=== PATIENT | male | born 1960 | race African-American/Black ===

== ENCOUNTER 2016-07-21 16:05 | Inpatient (IN) | payer OTHER ==
[~2016-07-21] VITALS: Ht 182.9 cm; Wt 99.8 kg
[~2016-07-21 16:05] MED LIST: AMLO10TA80 PO; ASPI-1035 PO; INSULIN GLARGINE SUBCUT; LISI40TA4 PO; METF10002 PO; METO50TA5 PO; TRAM50TA3 PO
[2016-07-21] MEDS ORDERED: ASPIRIN 81MG TABLET PO STA (17:34)
[2016-07-21 17:55] LABS: BASOPHILS % 0.9 % (0.0-2.0); HEMATOCRIT. 44.9 % (42.0-52.0); LYMPHOCYTES % 38.1 % (20.0-50.0); MEAN CORPUSCULAR HEMOGLOBIN 29.9 pg (28.0-32.0); MEAN CORPUSCULAR HGB CONC 33.5 g/dL (31.0-37.0); MEAN CORPUSCULAR VOLUME 89.1 fL (80.0-94.0); MEAN PLATELET VOLUME 10.3 fl (7.4-10.4); PLATELET 144 x1000/uL (130-400); RED BLOOD CELL COUNT 5.03 mill/uL (4.7-6.1); RED CELL DISTRIBUTION WIDTH 14.6 % (11.6-14.6); WHITE BLOOD COUNT 6.9 x1000/uL (4.5-11.0)
[2016-07-21 18:01] LABS: ALBUMIN 4.1 g/dL (3.4-5.0); ANION GAP 12; CALCIUM 9.2 mg/dL (8.5-10.1); CARBON DIOXIDE 26 mEq/L (21-32); CHLORIDE 108 mEq/L (98-107); INDEX HEMOLYSI 1 (1-3); INDEX ICTERIC 1 (1-4); INDEX LIPEMIC 1 (1-3); PARTIAL THROMBOPLASTIN TIME 25.9 sec (24.0-34.0); PROTHROMBIN TIME 10.7 sec; UREA NITROGEN BLOOD 12 mg/dL (7-21)
[2016-07-21 18:04] LABS: ALANINE AMINOTRANSFERASE 57 IU/L (13-61)
[2016-07-21] MEDS: NITROGLYCERIN 0.4MG TABLET SL SL PRN ×3 (18:05→18:15)
[2016-07-21 18:08] LABS: NT PRO B-TYPE NATRIURETIC PEP 19 pg/mL (5-125); TROPONIN I < 0.02 ng/mL (0.00-0.04); eGFR > 60 mL/min (>60)
[2016-07-21 20:00] VITALS: BP 148/99
[2016-07-21] MEDS ORDERED: MORPHINE SULFATE 4 MG/ML CPJ (NOT FOR IM USE) IV ONE (20:00)
[2016-07-21] MEDS ORDERED: ONDANSETRON HCL 4MG/2ML VIAL IV ONE (20:00)
[2016-07-21] MEDS ORDERED: NITROGLYCERIN OINT 1GM/INCH UDPKT TD ONE (20:00)
[2016-07-21] MEDS ORDERED: ATOR20TA65 PO (20:21)
[2016-07-21] MEDS ORDERED: FLUO-123 PO (20:21)
[2016-07-21 21:45] VITALS: BP 148/99
[2016-07-21] MEDS: NITROGLYCERIN OINT 1GM/INCH UDPKT TD SCH (21:49)
[2016-07-21] MEDS: ATORVASTATIN CALCIUM 20MG TABLET PO SCH (21:58)
[2016-07-21] MEDS: METOPROLOL TARTRATE 50MG TABLET PO SCH (21:58)
[2016-07-22] VITALS: BP_SYST 142; BP_SYST 154; BP_DIAS 92; BP_DIAS 96
[2016-07-22] MEDS ORDERED: DEXTROSE 50% WATER 50ML SYRINGE IV PRN
[2016-07-22] MEDS: MORPHINE SULFATE 2 MG/ML CPJ (NOT FOR IM USE) IV PRN ×3 (03:31→18:43)
[2016-07-22 04:00] VITALS: BP 96/55
[2016-07-22] MEDS: NITROGLYCERIN OINT 1GM/INCH UDPKT TD SCH ×3 (05:01→21:13)
[2016-07-22 06:30] LABS: EOSINOPHILS % 2.5 % (0.0-5.0); HEMATOCRIT. 38.8 % (42.0-52.0); LYMPHOCYTES % 48.6 % (20.0-50.0); MEAN CORPUSCULAR HEMOGLOBIN 29.5 pg (28.0-32.0); MEAN CORPUSCULAR HGB CONC 33.5 g/dL (31.0-37.0); MEAN CORPUSCULAR VOLUME 88.1 fL (80.0-94.0); MEAN PLATELET VOLUME 10.9 fl (7.4-10.4); MONOCYTES % 11.6 % (2.0-8.0); NEUTROPHILS % 36.3 % (40.0-76.0); PLATELET 139 x1000/uL (130-400); RED CELL DISTRIBUTION WIDTH 14.2 % (11.6-14.6); WHITE BLOOD COUNT 6.8 x1000/uL (4.5-11.0)
[2016-07-22 07:03] LABS: ANION GAP 13; CALCIUM 8.8 mg/dL (8.5-10.1); CARBON DIOXIDE 24 mEq/L (21-32); CHLORIDE 108 mEq/L (98-107); INDEX HEMOLYSI 1 (1-3); INDEX ICTERIC 1 (1-4); INDEX LIPEMIC 1 (1-3)
[2016-07-22 07:09] LABS: HDL CHOLESTEROL 33 mg/dL (40-59); LDL CHOLESTEROL 78 mg/dL (5-100); TRIGLYCERIDE 164 mg/dL (0-150); UREA NITROGEN BLOOD 14 mg/dL (7-21); eGFR > 60 mL/min (>60)
[2016-07-22] MEDS: BLOOD SUGAR DIAGNOSTIC STRIP TEST SCH ×4 (07:51→21:09)
[2016-07-22] MEDS: INSULIN LISPRO 100 UNITS/ML SUBCUT SCH ×4 (07:51→21:00)
[2016-07-22 08:00] VITALS: BP 103/70
[2016-07-22] MEDS: ASPIRIN 325MG EC TABLET PO SCH (08:43)
[2016-07-22] MEDS: ENOXAPARIN 30MG/0.3ML SYR SUBCUT SCH ×2 (08:44→21:09)
[2016-07-22] MEDS: METOPROLOL TARTRATE 50MG TABLET PO SCH ×2 (08:47→21:08)
[2016-07-22] MEDS ORDERED: METOPROLOL TARTRATE 50MG TABLET PO SCH (09:00)
[2016-07-22] MEDS ORDERED: FLUOXETINE HCL 20MG CAPSULE PO SCH (09:00)
[2016-07-22] MEDS: FLUOXETINE HCL 10 MG CAPSULE PO SCH (11:29)
[2016-07-22 12:00] VITALS: BP 130/86
[2016-07-22 15:22] LABS: *AMPHETAMINES SCREEN URINE NEGATIVE (NEGATIVE); *BARBITURATES SCREEN URINE NEGATIVE (NEGATIVE); *BENZODIAZEPINES SCREEN URINE NEGATIVE (NEGATIVE); *COCAINE SCREEN URINE NEGATIVE (NEGATIVE); CANNABINOID URINE SCREEN NEGATIVE (NEGATIVE); ECSTASY MDMA SCREEN URINE NEGATIVE (NEGATIVE); METHADONE URINE SCREEN NEGATIVE (NEGATIVE); OPIATES URINE SCREEN PRESUMTIVE POSITIVE (NEGATIVE); PHENCYCLIDINE URINE SCREEN NEGATIVE (NEGATIVE)
[2016-07-22 16:00] VITALS: BP 131/88
[2016-07-22 20:00] VITALS: BP 142/85
[2016-07-22] MEDS ORDERED: ATORVASTATIN CALCIUM 20MG TABLET PO SCH (21:00)
[2016-07-22] MEDS: ATORVASTATIN CALCIUM 20MG TABLET PO SCH (21:08)
[2016-07-23] VITALS: BP 128/87
[2016-07-23 04:00] VITALS: BP 113/70
[2016-07-23] MEDS: NITROGLYCERIN OINT 1GM/INCH UDPKT TD SCH ×2 (06:15→15:03)
[2016-07-23] MEDS: INSULIN LISPRO 100 UNITS/ML SUBCUT SCH ×2 (07:28→13:10)
[2016-07-23] MEDS: BLOOD SUGAR DIAGNOSTIC STRIP TEST SCH ×2 (07:28→12:40)
[2016-07-23 08:00] VITALS: BP 114/89
[2016-07-23] MEDS ORDERED: INDOMETHACIN 50MG CAPSULE PO SCH (09:30)
[2016-07-23] MEDS: METOPROLOL TARTRATE 50MG TABLET PO SCH (09:34)
[2016-07-23] MEDS: ENOXAPARIN 30MG/0.3ML SYR SUBCUT SCH (09:34)
[2016-07-23] MEDS: ASPIRIN 325MG EC TABLET PO SCH (09:34)
[2016-07-23] MEDS: FLUOXETINE HCL 10 MG CAPSULE PO SCH (09:37)
[2016-07-23] MEDS: MORPHINE SULFATE 2 MG/ML CPJ (NOT FOR IM USE) IV PRN (10:50)
[2016-07-23 12:00] VITALS: BP 108/71
[2016-07-23] MEDS ORDERED: ALBU18HF2 IH (12:13)
[2016-07-23] MEDS ORDERED: ALBUTEROL (0.5%) 2.5MG/0.5ML NEB HHN SCH (12:15)
[2016-07-23 13:07] VITALS: BP 108/71
== END 2016-07-23 15:16 | disposition home or self-care (01) | DRG 203 ==
LOC: ER 16:06 → 7WST 18:49
PROVIDERS: ADMIT Internal Medicine; ATTEND Internal Medicine
DX: M94.0 Chondrocostal junction syndrome [Tietze] (principal); I24.9 Acute ischemic heart disease, unspecified; I11.0 Hypertensive heart disease with heart failure; I50.9 Heart failure, unspecified; E11.65 Type 2 diabetes mellitus with hyperglycemia; J44.9 Chronic obstructive pulmonary disease, unspecified; F32.9 Major depressive disorder, single episode, unspecified; E66.9 Obesity, unspecified; E78.5 Hyperlipidemia, unspecified; Z82.49 Family history of ischemic heart disease and other diseases of the circulatory system; Z87.891 Personal history of nicotine dependence; Z68.29 Body mass index [BMI] 29.0-29.9, adult
CPT/HCPCS: 36415; 71010; 80048; 80053; 80061; 80305; 82962; 83036; 83880; 84484; 85018; 85025; 85610; 85730; 93005; 96374; 96375; 99285; J1650; J2270; J2405; J7611

== ENCOUNTER 2018-04-15 21:40 | Emergency (ER) | payer OTHER ==
[~2018-04-15] VITALS: Ht 182.9 cm; Wt 102.0 kg
[~2018-04-15 21:40] MED LIST changes: +ALBU18HF2 IH; -ASPI-1035 PO; +ASPI-1159 PO; +ATOR20TA65 PO; +FLUO-123 PO; +INSU300I SQ; -INSULIN GLARGINE SUBCUT; +METF-416 PO; -METF10002 PO; +METO-539 PO; -METO50TA5 PO; +SITA100T11 PO; +[UNRECOGNIZED DRUG - OTHER] PO
[2018-04-15] MEDS ORDERED: KETOROLAC 30MG/ML VIAL IV ONE (23:15)
[2018-04-15 23:37] LABS: BASOPHILS % 0.9 % (0.0-2.0); EOSINOPHILS % 2.4 % (0.0-5.0); HEMATOCRIT. 39.7 % (42.0-52.0); HEMOGLOBIN. 13.5 g/dL (14.0-18.0); LYMPHOCYTES % 42.8 % (20.0-50.0); MEAN CORPUSCULAR HEMOGLOBIN 29.8 pg (28.0-32.0); MEAN CORPUSCULAR VOLUME 87.6 fL (80.0-94.0); MEAN PLATELET VOLUME 11.5 fl (7.4-10.4); NEUTROPHILS % 44.9 % (40.0-76.0); PLATELET 142 x1000/uL (130-400); RED BLOOD CELL COUNT 4.54 mill/uL (4.7-6.1); RED CELL DISTRIBUTION WIDTH 13.8 % (11.6-14.6)
[2018-04-15 23:38] LABS: CLARITY URINE CLEAR (CLEAR); COLOR URINE YELLOW (YELLOW); KETONES URINE NEGATIVE (NEGATIVE); LEUKOCYTE ESTERASE URINE NEGATIVE (NEGATIVE); NITRITE URINE NEGATIVE (NEGATIVE); OCCULT BLOOD URINE TRACE (NEGATIVE); PH URINE 6.5 (4.5-8.0); PROTEIN URINE 1+ (NEGATIVE); SPECIFIC GRAVITY URINE 1.025 (1.005-1.030); UROBILINOGEN URINE 0.2 E.U./dL (0.2-1.0)
[2018-04-15 23:41] LABS: CHLORIDE 109 mEq/L (98-107)
[2018-04-15 23:44] LABS: PARTIAL THROMBOPLASTIN TIME 26.1 sec (23.4-31.0)
[2018-04-15 23:51] LABS: BETA HYDROXYBUTYRATE 0.1 mMol/L (0.0-0.3)
[2018-04-16 06:35] VITALS: BP 139/94
== END 2018-04-16 06:40 | disposition home or self-care (01) ==
LOC: ER 21:40 → CANBEDREQ 04-16 07:16
DX: R07.89 Other chest pain (principal); E11.65 Type 2 diabetes mellitus with hyperglycemia; Z79.84 Long term (current) use of oral hypoglycemic drugs
CPT/HCPCS: 36415; 71045; 80053; 81003; 82010; 82962; 83880; 84484; 85025; 85610; 85730; 93005; 96374; 99285; J1885

== ENCOUNTER 2018-05-11 11:06 | Emergency (ER) | payer OTHER ==
[~2018-05-11] VITALS: Ht 185.4 cm; Wt 109.0 kg
[2018-05-11] MEDS ORDERED: ASPIRIN 81MG TABLET PO ONE (12:00)
[2018-05-11] MEDS: NITROGLYCERIN 0.4MG TABLET SL SL PRN ×2 (12:22→14:22)
[2018-05-11 12:31] LABS: BASOPHILS % 0.8 % (0.0-2.0); EOSINOPHILS % 1.6 % (0.0-5.0); HEMATOCRIT. 41.5 % (42.0-52.0); LYMPHOCYTES % 45.7 % (20.0-50.0); MEAN CORPUSCULAR HEMOGLOBIN 29.5 pg (28.0-32.0); MEAN CORPUSCULAR VOLUME 87.8 fL (80.0-94.0); MEAN PLATELET VOLUME 10.5 fl (7.4-10.4); MONOCYTES % 6.5 % (2.0-8.0); NEUTROPHILS % 45.4 % (40.0-76.0); PLATELET 136 x1000/uL (130-400); RED BLOOD CELL COUNT 4.72 mill/uL (4.7-6.1); RED CELL DISTRIBUTION WIDTH 13.9 % (11.6-14.6)
[2018-05-11 12:39] LABS: CHLORIDE 111 mEq/L (98-107)
[2018-05-11] MEDS ORDERED: KETOROLAC 30MG/ML VIAL IV ONE (14:30)
[2018-05-11 16:09] VITALS: BP 128/82
== END 2018-05-11 16:21 | disposition home or self-care (01) ==
LOC: ER 11:06 → CANRESERV 15:14 → ENRESERV 15:14 → CANBEDREQ 15:42 → ER 16:21
DX: R07.89 Other chest pain (principal); R06.02 Shortness of breath; Z79.82 Long term (current) use of aspirin; Z79.899 Other long term (current) drug therapy
CPT/HCPCS: 36415; 71045; 80053; 83880; 84484; 85025; 96374; 99284; J1885

== ENCOUNTER 2018-08-18 14:16 | Inpatient (IN) | payer OTHER ==
[~2018-08-18] VITALS: Ht 185.4 cm; Wt 108.9 kg
[2018-08-18 15:35] LABS: BASOPHILS % 0.5 % (0.0-2.0); EOSINOPHILS % 1.7 % (0.0-5.0); HEMATOCRIT. 45.6 % (42.0-52.0); HEMOGLOBIN. 15.2 g/dL (14.0-18.0); LYMPHOCYTES % 40.2 % (20.0-50.0); MEAN CORPUSCULAR HEMOGLOBIN 29.3 pg (28.0-32.0); MEAN CORPUSCULAR VOLUME 87.6 fL (80.0-94.0); MONOCYTES % 7.5 % (2.0-8.0); NEUTROPHILS % 50.1 % (40.0-76.0); PLATELET 164 x1000/uL (130-400); RED CELL DISTRIBUTION WIDTH 14.5 % (11.6-14.6)
[2018-08-18 15:40] LABS: CHLORIDE 111 mEq/L (98-107)
[2018-08-18] MEDS ORDERED: MORPHINE SULFATE 4 MG/ML CPJ (NOT FOR IM USE) IV STA (15:40)
[2018-08-18] MEDS ORDERED: ONDANSETRON HCL 4MG/2ML INJ IV STA (15:40)
[2018-08-18 15:45] LABS: PARTIAL THROMBOPLASTIN TIME 26.8 sec (23.4-31.0)
[2018-08-18] MEDS ORDERED: IOHEXOL-350 100 ML BOTTLE ONE (16:57)
[2018-08-18] MEDS ORDERED: ASPIRIN 325MG EC TABLET PO ONE (17:30)
[2018-08-18] MEDS ORDERED: ZOLPIDEM TARTRATE 5MG TABLET PO PRN (17:45)
[2018-08-18] MEDS ORDERED: DEXTROSE 50% WATER 50ML SYRINGE IV PRN (17:45)
[2018-08-18] MEDS ORDERED: ONDANSETRON HCL 4MG/2ML INJ IV PRN (17:45)
[2018-08-18] MEDS ORDERED: KETOROLAC 15MG/ML VIAL IV ONE (17:45)
[2018-08-18] MEDS ORDERED: ACETAMINOPHEN 325MG TABLET PO PRN (17:45)
[2018-08-18] MEDS ORDERED: LORAZEPAM 2MG/ML CPJ IV NR (20:00)
[2018-08-18] MEDS: CLONIDINE 0.1MG TABLET PO PRN (20:12)
[2018-08-18 20:32] LABS: CLARITY URINE CLEAR (CLEAR); COLOR URINE YELLOW (YELLOW); KETONES URINE NEGATIVE (NEGATIVE); LEUKOCYTE ESTERASE URINE NEGATIVE (NEGATIVE); NITRITE URINE NEGATIVE (NEGATIVE); OCCULT BLOOD URINE NEGATIVE (NEGATIVE); PROTEIN URINE NEGATIVE (NEGATIVE); SPECIFIC GRAVITY URINE 1.025 (1.005-1.030); UROBILINOGEN URINE 0.2 E.U./dL (0.2-1.0)
[2018-08-18 20:45] LABS: *AMPHETAMINES SCREEN URINE NEGATIVE (NEGATIVE); *BARBITURATES SCREEN URINE NEGATIVE (NEGATIVE); *BENZODIAZEPINES SCREEN URINE NEGATIVE (NEGATIVE); *COCAINE SCREEN URINE NEGATIVE (NEGATIVE)
[2018-08-18 20:47] LABS: CANNABINOID URINE SCREEN NEGATIVE (NEGATIVE); METHADONE URINE SCREEN NEGATIVE (NEGATIVE); OPIATES URINE SCREEN PRESUMTIVE POSITIVE (NEGATIVE); PHENCYCLIDINE URINE SCREEN NEGATIVE (NEGATIVE)
[2018-08-18 23:35] VITALS: BP 134/75
[2018-08-19] VITALS: BP 134/75
[2018-08-19] MEDS ORDERED: EMPA10TA PO (01:52)
[2018-08-19 04:00] VITALS: BP 103/59
[2018-08-19] MEDS: INSULIN LISPRO 100 UNITS/ML SUBCUT SCH ×4 (06:38→20:39)
[2018-08-19] MEDS: BLOOD SUGAR DIAGNOSTIC STRIP TEST SCH ×4 (06:38→20:09)
[2018-08-19 06:54] LABS: BASOPHILS % 0.5 % (0.0-2.0); HEMATOCRIT. 42.8 % (42.0-52.0); LYMPHOCYTES % 48.7 % (20.0-50.0); MEAN CORPUSCULAR HEMOGLOBIN 28.8 pg (28.0-32.0); MEAN CORPUSCULAR VOLUME 87.9 fL (80.0-94.0); MONOCYTES % 11.3 % (2.0-8.0); NEUTROPHILS % 36.5 % (40.0-76.0); PLATELET 164 x1000/uL (130-400); RED BLOOD CELL COUNT 4.86 mill/uL (4.7-6.1); RED CELL DISTRIBUTION WIDTH 14.6 % (11.6-14.6)
[2018-08-19 06:56] LABS: CHLORIDE 110 mEq/L (98-107)
[2018-08-19 08:00] VITALS: BP 115/78
[2018-08-19] MEDS ORDERED: LORAZEPAM 2MG/ML CPJ IV NR (08:00)
[2018-08-19] MEDS: ASPIRIN 81MG TABLET PO SCH (09:29)
[2018-08-19] MEDS: ENOXAPARIN 30MG/0.3ML SYR SUBCUT SCH ×2 (09:30→20:36)
[2018-08-19] MEDS: HYDROCODONE/ACETAMINOPHEN 5/325MG TABLET PO PRN (10:32)
[2018-08-19] MEDS ORDERED: SUMATRIPTAN SUCCINATE 6MG/0.5ML VIAL SUBCUT SCH (11:30)
[2018-08-19 12:00] VITALS: BP 122/77
[2018-08-19] MEDS ORDERED: NAPROXEN 250MG TABLET PO PRN (19:45)
[2018-08-19 20:00] VITALS: BP 150/94
[2018-08-20] VITALS: BP 141/88
[2018-08-20] MEDS: HYDROCODONE/ACETAMINOPHEN 5/325MG TABLET PO PRN ×3 (01:26→09:53)
[2018-08-20 05:19] VITALS: BP 129/78
[2018-08-20 05:33] LABS: BASOPHILS % 0.8 % (0.0-2.0); EOSINOPHILS % 3.7 % (0.0-5.0); HEMATOCRIT. 43.9 % (42.0-52.0); HEMOGLOBIN. 14.4 g/dL (14.0-18.0); LYMPHOCYTES % 50.4 % (20.0-50.0); MEAN CORPUSCULAR HEMOGLOBIN 28.8 pg (28.0-32.0); MEAN CORPUSCULAR VOLUME 87.6 fL (80.0-94.0); MEAN PLATELET VOLUME 10.6 fl (7.4-10.4); MONOCYTES % 7.4 % (2.0-8.0); NEUTROPHILS % 37.7 % (40.0-76.0); PLATELET 169 x1000/uL (130-400); RED BLOOD CELL COUNT 5.01 mill/uL (4.7-6.1); RED CELL DISTRIBUTION WIDTH 14.2 % (11.6-14.6)
[2018-08-20 05:41] LABS: CHLORIDE 109 mEq/L (98-107)
[2018-08-20] MEDS: BLOOD SUGAR DIAGNOSTIC STRIP TEST SCH ×2 (05:48→12:31)
[2018-08-20] MEDS: INSULIN LISPRO 100 UNITS/ML SUBCUT SCH ×2 (06:00→12:31)
[2018-08-20 08:00] VITALS: BP 159/94
[2018-08-20] MEDS: ASPIRIN 81MG TABLET PO SCH (09:51)
[2018-08-20] MEDS: CLONIDINE 0.1MG TABLET PO PRN (09:51)
[2018-08-20] MEDS: ENOXAPARIN 30MG/0.3ML SYR SUBCUT SCH (09:52)
[2018-08-20 12:00] VITALS: BP 148/96
[2018-08-20] MEDS ORDERED: NAPR500T7 MT (12:59)
[2018-08-20] MEDS ORDERED: LORAZEPAM 2MG/ML CPJ IV PRN (13:00)
[2018-08-20] MEDS ORDERED: POTASSIUM CHLORIDE 20MEQ/PACKET PO SCH (13:00)
[2018-08-20 13:16] VITALS: BP 148/96
[2018-08-20 16:00] VITALS: BP 146/88
== END 2018-08-20 17:18 | disposition home or self-care (01) | DRG 48 ==
LOC: ER 14:23 → 8WST 17:38 → ENRESERV 21:46
PROVIDERS: ADMIT Internal Medicine; ATTEND Internal Medicine
DX: G51.0 Bell's palsy (principal); E87.8 Other disorders of electrolyte and fluid balance, not elsewhere classified; I11.0 Hypertensive heart disease with heart failure; I50.9 Heart failure, unspecified; E66.9 Obesity, unspecified; E11.9 Type 2 diabetes mellitus without complications; E78.5 Hyperlipidemia, unspecified; Z82.49 Family history of ischemic heart disease and other diseases of the circulatory system; Z68.31 Body mass index [BMI] 31.0-31.9, adult; Z71.3 Dietary counseling and surveillance; Z79.51 Long term (current) use of inhaled steroids; Z79.899 Other long term (current) drug therapy; Z79.4 Long term (current) use of insulin
CPT/HCPCS: 36415; 70496; 70498; 70551; 71045; 80048; 80061; 80305; 82962; 83036; 83880; 84443; 84484; 85651; 86140; 93005; 96374; 96375; 97162; 97165; 99285; J1650; J1885; J2060; J2270; J2405; J3030; Q9967

== ENCOUNTER 2018-10-03 14:19 | Inpatient (IN) | payer OTHER ==
[~2018-10-03] VITALS: Ht 185.4 cm; Wt 115.7 kg
[~2018-10-03 14:19] MED LIST changes: +EMPA10TA PO; +NAPR500T7 MT; -SITA100T11 PO; -TRAM50TA3 PO; -[UNRECOGNIZED DRUG - OTHER] PO
[2018-10-03] MEDS ORDERED: ASPIRIN 325MG TABLET PO ONE (15:00)
[2018-10-03] MEDS ORDERED: NITROGLYCERIN OINT 1GM/INCH UDPKT TD ONE (15:00)
[2018-10-03 15:20] LABS: BASOPHILS % 0.5 % (0.0-2.0); HEMATOCRIT. 43.8 % (42.0-52.0); HEMOGLOBIN. 14.6 g/dL (14.0-18.0); LYMPHOCYTES % 49.3 % (20.0-50.0); MEAN CORPUSCULAR HEMOGLOBIN 29.2 pg (28.0-32.0); MEAN CORPUSCULAR VOLUME 87.4 fL (80.0-94.0); MONOCYTES % 7.3 % (2.0-8.0); NEUTROPHILS % 39.9 % (40.0-76.0); PLATELET 150 x1000/uL (130-400); RED BLOOD CELL COUNT 5.02 mill/uL (4.7-6.1); RED CELL DISTRIBUTION WIDTH 14.4 % (11.6-14.6)
[2018-10-03 15:21] LABS: CHLORIDE 111 mEq/L (98-107)
[2018-10-03 15:24] LABS: PROTHROMBIN TIME 10.4 sec (9.6-11.0)
[2018-10-03] MEDS ORDERED: HYDROCODONE/ACETAMINOPHEN 5/325MG TABLET PO ONE (16:15)
[2018-10-03] MEDS ORDERED: ONDANSETRON HCL 4MG/2ML INJ IV STA (17:31)
[2018-10-03] MEDS ORDERED: MORPHINE SULFATE 4 MG/ML CPJ (NOT FOR IM USE) IV STA (17:31)
[2018-10-03] MEDS ORDERED: ACETAMINOPHEN 325MG TABLET PO PRN (18:45)
[2018-10-03] MEDS ORDERED: CLONIDINE 0.1MG TABLET PO PRN (18:45)
[2018-10-03] MEDS ORDERED: DEXTROSE 50% WATER 50ML SYRINGE IV PRN (18:45)
[2018-10-03] MEDS ORDERED: ONDANSETRON HCL 4MG/2ML INJ IV PRN (18:45)
[2018-10-03] MEDS ORDERED: HYDROCODONE/ACETAMINOPHEN 5/325MG TABLET PO PRN (18:45)
[2018-10-03] MEDS: MORPHINE SULFATE 4 MG/ML CPJ (NOT FOR IM USE) IV PRN (22:17)
[2018-10-03 23:30] VITALS: BP 145/93
[2018-10-03] MEDS: METOPROLOL TARTRATE 50MG TABLET PO SCH (23:30)
[2018-10-03] MEDS: BLOOD SUGAR DIAGNOSTIC STRIP TEST SCH (23:30)
[2018-10-03] MEDS: AMLODIPINE 5MG TABLET PO SCH (23:30)
[2018-10-03] MEDS: INSULIN LISPRO 100 UNITS/ML SUBCUT SCH (23:30)
[2018-10-03 23:31] VITALS: BP 145/93
[2018-10-03] MEDS: ENOXAPARIN 30MG/0.3ML SYR SUBCUT SCH (23:37)
[2018-10-04 04:00] VITALS: BP 109/67
[2018-10-04] MEDS: BLOOD SUGAR DIAGNOSTIC STRIP TEST SCH ×2 (06:41→12:46)
[2018-10-04] MEDS: INSULIN LISPRO 100 UNITS/ML SUBCUT SCH ×2 (06:41→12:40)
[2018-10-04 06:57] LABS: BASOPHILS % 0.7 % (0.0-2.0); EOSINOPHILS % 3.6 % (0.0-5.0); HEMATOCRIT. 41.2 % (42.0-52.0); HEMOGLOBIN. 13.4 g/dL (14.0-18.0); LYMPHOCYTES % 45.7 % (20.0-50.0); MEAN CORPUSCULAR HEMOGLOBIN 28.7 pg (28.0-32.0); MEAN CORPUSCULAR VOLUME 88.2 fL (80.0-94.0); MEAN PLATELET VOLUME 10.9 fl (7.4-10.4); MONOCYTES % 9.3 % (2.0-8.0); NEUTROPHILS % 40.7 % (40.0-76.0); PLATELET 143 x1000/uL (130-400); RED BLOOD CELL COUNT 4.66 mill/uL (4.7-6.1); RED CELL DISTRIBUTION WIDTH 14.4 % (11.6-14.6)
[2018-10-04 07:25] LABS: CHLORIDE 111 mEq/L (98-107)
[2018-10-04 08:00] VITALS: BP 100/60
[2018-10-04] MEDS: AMLODIPINE 5MG TABLET PO SCH (08:23)
[2018-10-04] MEDS: METOPROLOL TARTRATE 50MG TABLET PO SCH (08:24)
[2018-10-04] MEDS ORDERED: LISINOPRIL 40MG TABLET PO SCH (09:00)
[2018-10-04] MEDS ORDERED: ASPIRIN 81MG TABLET PO SCH (09:00)
[2018-10-04] MEDS: ENOXAPARIN 30MG/0.3ML SYR SUBCUT SCH (10:06)
[2018-10-04] MEDS: MORPHINE SULFATE 4 MG/ML CPJ (NOT FOR IM USE) IV PRN (10:11)
[2018-10-04 12:00] VITALS: BP 121/71
[2018-10-04 16:00] VITALS: BP 146/89
[2018-10-04 16:51] VITALS: BP 121/71
[2018-10-04] MEDS ORDERED: INDOMETHACIN 50MG CAPSULE PO SCH (17:40)
[2018-10-04] MEDS ORDERED: AMITRIPTYLINE 25MG TABLET PO SCH (21:00)
== END 2018-10-04 17:50 | disposition home or self-care (01) | DRG 203 ==
LOC: ER 14:19 → EDBEDREQ 15:03 → 8WST 18:08 → EDBEDREQ 18:09 → ENRESERV 20:46 → 8WST 23:29
PROVIDERS: ADMIT Internal Medicine; ATTEND Internal Medicine
DX: M94.0 Chondrocostal junction syndrome [Tietze] (principal); E66.01 Morbid (severe) obesity due to excess calories; E87.8 Other disorders of electrolyte and fluid balance, not elsewhere classified; I50.9 Heart failure, unspecified; I11.0 Hypertensive heart disease with heart failure; I16.0 Hypertensive urgency; E11.9 Type 2 diabetes mellitus without complications; E78.5 Hyperlipidemia, unspecified; F41.9 Anxiety disorder, unspecified; G44.009 Cluster headache syndrome, unspecified, not intractable; G89.4 Chronic pain syndrome; Z68.33 Body mass index [BMI] 33.0-33.9, adult; Z79.899 Other long term (current) drug therapy; Z82.49 Family history of ischemic heart disease and other diseases of the circulatory system; Z86.73 Personal history of transient ischemic attack (TIA), and cerebral infarction without residual deficits; Z87.891 Personal history of nicotine dependence; Z90.49 Acquired absence of other specified parts of digestive tract; Z79.51 Long term (current) use of inhaled steroids; Z79.4 Long term (current) use of insulin; Z79.82 Long term (current) use of aspirin; Z79.84 Long term (current) use of oral hypoglycemic drugs; Z71.3 Dietary counseling and surveillance
CPT/HCPCS: 36415; 71045; 80048; 82962; 84484; 93005; 93306; 99285; J1650; J2270; J2405

== ENCOUNTER 2018-10-27 20:40 | Emergency (ER) | payer OTHER ==
[~2018-10-27] VITALS: Ht 185.4 cm; Wt 104.0 kg
[2018-10-27 22:05] LABS: EOSINOPHILS % 1.5 % (0.0-5.0); HEMOGLOBIN. 15.9 g/dL (14.0-18.0); LYMPHOCYTES % 29.3 % (20.0-50.0); MEAN CORPUSCULAR HEMOGLOBIN 29.4 pg (28.0-32.0); MEAN PLATELET VOLUME 11.1 fl (7.4-10.4); MONOCYTES % 8.6 % (2.0-8.0); NEUTROPHILS % 59.6 % (40.0-76.0); PLATELET 135 x1000/uL (130-400); RED CELL DISTRIBUTION WIDTH 14.7 % (11.6-14.6)
[2018-10-27 22:10] LABS: CHLORIDE 112 mEq/L (98-107)
[2018-10-27] MEDS ORDERED: KETOROLAC 15MG/ML VIAL IV ONE (23:15)
[2018-10-28] MEDS ORDERED: DIAZEPAM 5 MG/ML 2ML CPJ IV ONE (00:30)
[2018-10-28 01:33] VITALS: BP 128/86
== END 2018-10-28 01:36 | disposition home or self-care (01) ==
LOC: ER 20:40
DX: M62.830 Muscle spasm of back (principal); R07.9 Chest pain, unspecified; E11.9 Type 2 diabetes mellitus without complications; I11.9 Hypertensive heart disease without heart failure; Z90.49 Acquired absence of other specified parts of digestive tract; Z98.890 Other specified postprocedural states; Z79.4 Long term (current) use of insulin; Z79.82 Long term (current) use of aspirin; Z79.899 Other long term (current) drug therapy
CPT/HCPCS: 36415; 71045; 80053; 83880; 84484; 85025; 93005; 96374; 96375; 99284; J1885; J3360; Z7610

== ENCOUNTER 2019-09-03 04:40 | Inpatient (IN) | payer MEDICARE, OTHER ==
[~2019-09-03] VITALS: Ht 185.4 cm; Wt 104.3 kg
[~2019-09-03 04:40] MED LIST changes: -AMLO10TA80 PO; +APIX5TAB MT; -ASPI-1159 PO; +DIGO125T80 MT; +DILT120C88 PO; -EMPA10TA PO; -FLUO-123 PO; +FLUO10CA26 PO; +HYDR-3280 MT; +IBUP-2030 PO; +METF-414 MT; -METF-416 PO; -METO-539 PO; +METO75TA MT; +MIRT7.5T11 PO
[2019-09-03] MEDS ORDERED: ONDANSETRON HCL 4MG/2ML INJ IV STA (05:02)
[2019-09-03] MEDS ORDERED: ASPIRIN 81MG TABLET PO ONE (05:15)
[2019-09-03 05:34] LABS: HEMATOCRIT. 44.5 % (42.0-52.0); LYMPHOCYTES % 44.5 % (20.0-50.0); MEAN CORPUSCULAR HEMOGLOBIN 29.1 pg (28.0-32.0); MEAN CORPUSCULAR VOLUME 86.7 fL (80.0-94.0); MEAN PLATELET VOLUME 9.9 fl (7.4-10.4); MONOCYTES % 9.2 % (2.0-8.0); NEUTROPHILS % 42.3 % (40.0-76.0); PLATELET 187 x1000/uL (130-400); RED BLOOD CELL COUNT 5.14 mill/uL (4.7-6.1); RED CELL DISTRIBUTION WIDTH 14.7 % (11.6-14.6)
[2019-09-03 05:51] LABS: CHLORIDE 111 mEq/L (98-107)
[2019-09-03] MEDS ORDERED: MORPHINE SULFATE 4 MG/ML CPJ (NOT FOR IM USE) IV ONE ×2 (06:15)
[2019-09-03 08:00] VITALS: BP 123/78
[2019-09-03] MEDS ORDERED: ACETAMINOPHEN 325MG TABLET PO PRN (09:00)
[2019-09-03] MEDS ORDERED: CLONIDINE 0.1MG TABLET PO PRN (09:00)
[2019-09-03] MEDS ORDERED: DIPHENHYDRAMINE 50MG/ML VIAL IV PRN (09:00)
[2019-09-03] MEDS ORDERED: ENOXAPARIN 40MG/0.4ML SYR SUBCUT SCH (09:00)
[2019-09-03] MEDS ORDERED: ONDANSETRON HCL 4MG/2ML INJ IV PRN (09:00)
[2019-09-03] MEDS ORDERED: IPRATROPIUM/ALBUTEROL 0.5-3(2.5)MG/3ML NEB HHN PRN (09:00)
[2019-09-03 09:30] VITALS: BP 123/78
[2019-09-03] MEDS ORDERED: METF-416 MT (11:18)
[2019-09-03] MEDS: ENOXAPARIN 30MG/0.3ML SYR SUBCUT SCH ×2 (11:42→22:29)
[2019-09-03 12:00] VITALS: BP 114/77
[2019-09-03] MEDS: DILTIAZEM HCL 30MG TABLET PO SCH ×2 (15:04→22:20)
[2019-09-03] MEDS: METFORMIN HCL 500MG TABLET PO SCH (17:59)
[2019-09-03] MEDS: APIXABAN 5 MG TABLET PO SCH (17:59)
[2019-09-03] MEDS: DIGOXIN 125MCG TABLET PO SCH (18:00)
[2019-09-03] MEDS ORDERED: POTASSIUM CHLORIDE INJ 40 MEQ in DEXT 5% WATER 250 ML IV NR (18:00)
[2019-09-03] MEDS: MORPHINE SULFATE 2 MG/ML CPJ (NOT FOR IM USE) IV PRN ×2 (18:00→23:17)
[2019-09-03 20:00] VITALS: BP 138/86
[2019-09-03] MEDS ORDERED: MIRTAZAPINE 15MG TABLET PO SCH (21:00)
[2019-09-03] MEDS ORDERED: ATORVASTATIN CALCIUM 20MG TABLET PO SCH (21:00)
[2019-09-03] MEDS: METOPROLOL TARTRATE 50MG TABLET PO SCH (22:18)
[2019-09-04] VITALS: BP 135/77
[2019-09-04 04:00] VITALS: BP 129/82
[2019-09-04] MEDS: DILTIAZEM HCL 30MG TABLET PO SCH ×2 (06:31→13:37)
[2019-09-04 06:42] LABS: BASOPHILS % 0.7 % (0.0-2.0); EOSINOPHILS % 2.7 % (0.0-5.0); HEMATOCRIT. 44.3 % (42.0-52.0); HEMOGLOBIN. 14.9 g/dL (14.0-18.0); LYMPHOCYTES % 48.8 % (20.0-50.0); MEAN CORPUSCULAR HEMOGLOBIN 29.2 pg (28.0-32.0); MEAN PLATELET VOLUME 10.6 fl (7.4-10.4); MONOCYTES % 9.5 % (2.0-8.0); NEUTROPHILS % 38.3 % (40.0-76.0); PLATELET 176 x1000/uL (130-400); RED BLOOD CELL COUNT 5.09 mill/uL (4.7-6.1); RED CELL DISTRIBUTION WIDTH 14.3 % (11.6-14.6)
[2019-09-04 06:58] LABS: CHLORIDE 111 mEq/L (98-107)
[2019-09-04 07:08] LABS: LDL CHOLESTEROL 59 mg/dL (5-100)
[2019-09-04 07:09] LABS: HDL CHOLESTEROL 21 mg/dL (40-59)
[2019-09-04 08:00] VITALS: BP 134/87
[2019-09-04] MEDS: METOPROLOL TARTRATE 50MG TABLET PO SCH (08:49)
[2019-09-04] MEDS: METFORMIN HCL 500MG TABLET PO SCH ×2 (08:49→17:48)
[2019-09-04] MEDS: ENOXAPARIN 30MG/0.3ML SYR SUBCUT SCH (08:50)
[2019-09-04] MEDS: APIXABAN 5 MG TABLET PO SCH ×2 (08:51→17:48)
[2019-09-04] MEDS: MORPHINE SULFATE 2 MG/ML CPJ (NOT FOR IM USE) IV PRN (08:52)
[2019-09-04] MEDS ORDERED: FLUOXETINE HCL 10 MG CAPSULE PO SCH (09:00)
[2019-09-04] MEDS ORDERED: LISINOPRIL 40MG TABLET PO SCH (09:00)
[2019-09-04] MEDS ORDERED: INSULIN GLARGINE UD 100 UNITS/ML SYR SUBCUT SCH (10:00)
[2019-09-04] MEDS ORDERED: DEXTROSE 50% WATER 50ML SYRINGE IV PRN (11:15)
[2019-09-04] MEDS: BLOOD SUGAR DIAGNOSTIC STRIP TEST SCH ×2 (11:58→17:45)
[2019-09-04] MEDS: INSULIN LISPRO 100 UNITS/ML SUBCUT SCH ×2 (11:58→17:45)
[2019-09-04 12:00] VITALS: BP 134/84
[2019-09-04 15:53] VITALS: BP 134/84
[2019-09-04] MEDS ORDERED: METO75TA MT (15:57)
[2019-09-04] MEDS ORDERED: DIGO125T80 MT (15:57)
[2019-09-04] MEDS ORDERED: MIRT7.5T11 PO (15:57)
[2019-09-04] MEDS ORDERED: DILT120C88 PO (15:57)
[2019-09-04] MEDS ORDERED: FLUO10CA26 PO (15:57)
[2019-09-04] MEDS ORDERED: INSU300I SQ (15:57)
[2019-09-04] MEDS ORDERED: ALBU18HF2 IH (15:57)
[2019-09-04] MEDS ORDERED: METF-416 MT (15:57)
[2019-09-04] MEDS ORDERED: LISI40TA4 PO (15:57)
[2019-09-04] MEDS ORDERED: APIX5TAB MT (15:57)
[2019-09-04] MEDS ORDERED: ATOR20TA65 PO (15:57)
[2019-09-04 16:00] VITALS: BP_SYST 134; BP_SYST 136; BP_DIAS 84; BP_DIAS 90
[2019-09-04] MEDS: DIGOXIN 125MCG TABLET PO SCH (17:48)
== END 2019-09-04 18:15 | disposition home or self-care (01) | DRG 313 ==
LOC: ER 04:52 → 7WST 06:02 → EDBEDREQTM 06:04 → EDBEDREQ 06:04 → ENRESERV 08:59
PROVIDERS: ADMIT Internal Medicine; ATTEND Internal Medicine
DX: R07.89 Other chest pain (principal); I48.91 Unspecified atrial fibrillation; I50.9 Heart failure, unspecified; I11.0 Hypertensive heart disease with heart failure; E87.6 Hypokalemia; E11.65 Type 2 diabetes mellitus with hyperglycemia; G43.909 Migraine, unspecified, not intractable, without status migrainosus; E78.00 Pure hypercholesterolemia, unspecified; R74.0 Nonspecific elevation of levels of transaminase and lactic acid dehydrogenase [LDH]; Z82.49 Family history of ischemic heart disease and other diseases of the circulatory system; Z87.891 Personal history of nicotine dependence; Z90.49 Acquired absence of other specified parts of digestive tract
CPT/HCPCS: 36415; 71045; 80053; 80061; 82962; 83036; 83735; 83880; 84100; 84443; 84484; 85025; 93005; 93306; 93970; 99285; J1650; J1815; J2270; J3480; J7060

== ENCOUNTER 2019-11-08 22:16 | Inpatient (IN) | payer MEDICARE, OTHER ==
[~2019-11-08] VITALS: Ht 185.4 cm; Wt 111.2 kg
[~2019-11-08 22:16] MED LIST changes: -IBUP-2030 PO; -METF-414 MT; +METF-416 MT; -NAPR500T7 MT
[2019-11-08] MEDS ORDERED: MORPHINE SULFATE 4 MG/ML CPJ (NOT FOR IM USE) IV STA (23:07)
[2019-11-08] MEDS ORDERED: ONDANSETRON HCL 4MG/2ML INJ IV STA (23:07)
[2019-11-08] MEDS ORDERED: ASPIRIN 81MG TABLET PO ONE (23:15)
[2019-11-08] MEDS: NITROGLYCERIN 0.4MG TABLET SL SL PRN ×2 (23:21→23:51)
[2019-11-09 00:07] LABS: BASOPHILS % 1.1 % (0.0-2.0); CHLORIDE 115 mEq/L (98-107); EOSINOPHILS % 1.4 % (0.0-5.0); HEMATOCRIT. 41.2 % (42.0-52.0); LYMPHOCYTES % 41.7 % (20.0-50.0); MEAN CORPUSCULAR HEMOGLOBIN 29.9 pg (28.0-32.0); MEAN PLATELET VOLUME 10.7 fl (7.4-10.4); MONOCYTES % 8.5 % (2.0-8.0); NEUTROPHILS % 47.3 % (40.0-76.0); PLATELET 157 x1000/uL (130-400); RED BLOOD CELL COUNT 4.69 mill/uL (4.7-6.1); RED CELL DISTRIBUTION WIDTH 15.5 % (11.6-14.6)
[2019-11-09] MEDS: NITROGLYCERIN 0.4MG TABLET SL SL PRN (00:42)
[2019-11-09] MEDS ORDERED: MORPHINE SULFATE 4 MG/ML CPJ (NOT FOR IM USE) IV ONE (03:00)
[2019-11-09] MEDS ORDERED: NITROGLYCERIN 0.4MG TABLET SL SL ONE (03:00)
[2019-11-09 05:50] VITALS: BP_SYST 139; BP_DIAS 87; BP_DIAS 89
[2019-11-09] MEDS ORDERED: TOPI100T37 MT (07:03)
[2019-11-09] MEDS ORDERED: EMPA25TA PO (07:03)
[2019-11-09 08:35] VITALS: BP 162/97
[2019-11-09] MEDS ORDERED: IPRATROPIUM/ALBUTEROL 0.5-3(2.5)MG/3ML NEB HHN PRN (09:00)
[2019-11-09] MEDS ORDERED: ACETAMINOPHEN 325MG TABLET PO PRN (09:00)
[2019-11-09] MEDS ORDERED: ONDANSETRON HCL 4MG/2ML INJ IV PRN (09:00)
[2019-11-09] MEDS ORDERED: CLONIDINE 0.1MG TABLET PO PRN (09:00)
[2019-11-09] MEDS ORDERED: ENOXAPARIN 40MG/0.4ML SYR SUBCUT SCH (09:00)
[2019-11-09] MEDS ORDERED: DIPHENHYDRAMINE 50MG/ML VIAL IV PRN (09:00)
[2019-11-09] MEDS ORDERED: DEXTROSE 50% WATER 50ML SYRINGE IV PRN (09:15)
[2019-11-09] MEDS ORDERED: ENOXAPARIN 30MG/0.3ML SYR SUBCUT SCH (10:00)
[2019-11-09] MEDS ORDERED: POTASSIUM CHLORIDE 20MEQ TABLET SR PO SCH (11:00)
[2019-11-09] MEDS: MORPHINE SULFATE 2 MG/ML CPJ (NOT FOR IM USE) IV PRN ×3 (11:04→16:09)
[2019-11-09] MEDS: BLOOD SUGAR DIAGNOSTIC STRIP TEST SCH ×3 (11:05→21:21)
[2019-11-09] MEDS: INSULIN LISPRO 100 UNITS/ML SUBCUT SCH ×3 (11:51→21:00)
[2019-11-09 11:59] LABS: PHOSPHORUS 3.3 mg/dL (2.5-4.9)
[2019-11-09 12:18] VITALS: BP 145/87
[2019-11-09] MEDS: POTASSIUM CHLORIDE 20MEQ TABLET SR PO SCH (14:06)
[2019-11-09] MEDS: LISINOPRIL 5MG TABLET PO SCH (14:06)
[2019-11-09] MEDS: METFORMIN HCL 500MG TABLET PO SCH (17:03)
[2019-11-09] MEDS: APIXABAN 5 MG TABLET PO SCH (17:03)
[2019-11-09] MEDS: TOPIRAMATE 100MG TABLET PO SCH (17:03)
[2019-11-09 20:00] VITALS: BP 141/84
[2019-11-09] MEDS ORDERED: ATORVASTATIN CALCIUM 20MG TABLET PO SCH (21:00)
[2019-11-09] MEDS ORDERED: METOPROLOL TARTRATE 50MG TABLET PO SCH (21:00)
[2019-11-09] MEDS: METOPROLOL TARTRATE 25MG TABLET PO SCH (21:22)
[2019-11-10] VITALS (7 sets, daily range): BP systolic 118–165; BP diastolic 69–100
[2019-11-10] MEDS: MORPHINE SULFATE 2 MG/ML CPJ (NOT FOR IM USE) IV PRN ×3 (02:49→15:32)
[2019-11-10] MEDS: BLOOD SUGAR DIAGNOSTIC STRIP TEST SCH ×3 (06:05→17:02)
[2019-11-10 06:30] LABS: BASOPHILS % 0.9 % (0.0-2.0); EOSINOPHILS % 3.7 % (0.0-5.0); HEMATOCRIT. 43.1 % (42.0-52.0); HEMOGLOBIN. 14.6 g/dL (14.0-18.0); LYMPHOCYTES % 46.1 % (20.0-50.0); MEAN CORPUSCULAR HEMOGLOBIN 29.7 pg (28.0-32.0); MEAN CORPUSCULAR VOLUME 87.8 fL (80.0-94.0); MEAN PLATELET VOLUME 10.8 fl (7.4-10.4); MONOCYTES % 7.6 % (2.0-8.0); NEUTROPHILS % 41.7 % (40.0-76.0); PLATELET 146 x1000/uL (130-400); RED BLOOD CELL COUNT 4.91 mill/uL (4.7-6.1); RED CELL DISTRIBUTION WIDTH 15.4 % (11.6-14.6)
[2019-11-10 06:31] LABS: CHLORIDE 113 mEq/L (98-107)
[2019-11-10] MEDS: INSULIN LISPRO 100 UNITS/ML SUBCUT SCH ×3 (06:34→17:05)
[2019-11-10 06:40] LABS: LDL CHOLESTEROL 94 mg/dL (5-100)
[2019-11-10 06:42] LABS: HDL CHOLESTEROL 25 mg/dL (40-59)
[2019-11-10 06:56] LABS: DIGOXIN 0.4 ng/mL (0.9-2.0)
[2019-11-10] MEDS ORDERED: DILTIAZEM HCL 120MG CAPSULE CD 24HR PO SCH (09:00)
[2019-11-10] MEDS ORDERED: FLUOXETINE HCL 10 MG CAPSULE PO SCH (09:00)
[2019-11-10] MEDS: APIXABAN 5 MG TABLET PO SCH ×2 (09:21→17:02)
[2019-11-10] MEDS: POTASSIUM CHLORIDE 20MEQ TABLET SR PO SCH (09:21)
[2019-11-10] MEDS: METFORMIN HCL 500MG TABLET PO SCH ×2 (09:22→17:02)
[2019-11-10] MEDS: TOPIRAMATE 100MG TABLET PO SCH ×2 (09:22→17:02)
[2019-11-10] MEDS: METOPROLOL TARTRATE 25MG TABLET PO SCH (09:22)
[2019-11-10] MEDS: LISINOPRIL 5MG TABLET PO SCH (09:23)
[2019-11-10] MEDS ORDERED: INSULIN GLARGINE UD 100 UNITS/ML SYR SUBCUT SCH (10:00)
[2019-11-10] MEDS ORDERED: DILT120C88 PO (15:11)
[2019-11-10] MEDS ORDERED: METO25TA6 MT (15:11)
[2019-11-10] MEDS ORDERED: DIGOXIN 250MCG TABLET PO SCH (18:00)
[2019-11-11] MEDS ORDERED: DILTIAZEM HCL 120MG CAPSULE CD 24HR PO SCH (09:00)
[2019-11-11] MEDS ORDERED: LISINOPRIL 10MG TABLET PO SCH (09:00)
== END 2019-11-10 17:50 | disposition home or self-care (01) | DRG 311 ==
LOC: ER 22:16 → 5WST 11-09 02:21 → ENRESERV 11-09 05:44
PROVIDERS: ADMIT Internal Medicine; ATTEND Internal Medicine
DX: I24.9 Acute ischemic heart disease, unspecified (principal); E78.5 Hyperlipidemia, unspecified; E78.00 Pure hypercholesterolemia, unspecified; G43.909 Migraine, unspecified, not intractable, without status migrainosus; E11.9 Type 2 diabetes mellitus without complications; I50.9 Heart failure, unspecified; I11.0 Hypertensive heart disease with heart failure; J44.9 Chronic obstructive pulmonary disease, unspecified; E87.6 Hypokalemia; Z79.4 Long term (current) use of insulin; Z79.899 Other long term (current) drug therapy; Z79.891 Long term (current) use of opiate analgesic; Z82.49 Family history of ischemic heart disease and other diseases of the circulatory system; Z87.891 Personal history of nicotine dependence; Z86.73 Personal history of transient ischemic attack (TIA), and cerebral infarction without residual deficits
CPT/HCPCS: 36415; 71045; 80053; 80061; 80162; 82962; 83036; 83735; 83880; 84100; 84443; 84484; 85025; 85379; 93005; 93306; 93970; 99285; J1650; J1815; J2270; J2405

== ENCOUNTER 2019-12-06 03:36 | Emergency (ER) | payer MEDICARE, MEDICAID, OTHER ==
[~2019-12-06] VITALS: Ht 185.4 cm; Wt 111.0 kg
[~2019-12-06 03:36] MED LIST changes: +EMPA25TA PO; +METO25TA6 MT; -METO75TA MT; -MIRT7.5T11 PO; +TOPI100T37 MT
[2019-12-06] MEDS ORDERED: ONDANSETRON HCL 4MG/2ML INJ IV STA (04:03)
[2019-12-06] MEDS ORDERED: MORPHINE SULFATE 4 MG/ML CPJ (NOT FOR IM USE) IV STA (04:03)
[2019-12-06] MEDS ORDERED: NITROGLYCERIN 0.4MG TABLET SL SL PRN (04:15)
[2019-12-06 04:42] LABS: BASOPHILS % 0.6 % (0.0-2.0); EOSINOPHILS % 2.9 % (0.0-5.0); HEMATOCRIT. 42.8 % (42.0-52.0); HEMOGLOBIN. 14.2 g/dL (14.0-18.0); LYMPHOCYTES % 52.2 % (20.0-50.0); MEAN CORPUSCULAR HEMOGLOBIN 29.5 pg (28.0-32.0); MEAN CORPUSCULAR VOLUME 88.9 fL (80.0-94.0); MEAN PLATELET VOLUME 10.7 fl (7.4-10.4); MONOCYTES % 10.5 % (2.0-8.0); NEUTROPHILS % 33.8 % (40.0-76.0); PLATELET 149 x1000/uL (130-400); RED BLOOD CELL COUNT 4.82 mill/uL (4.7-6.1); RED CELL DISTRIBUTION WIDTH 15.2 % (11.6-14.6)
[2019-12-06 04:48] LABS: CHLORIDE 109 mEq/L (98-107)
[2019-12-06] MEDS ORDERED: MORPHINE SULFATE 4 MG/ML CPJ (NOT FOR IM USE) IV ONE (05:15)
[2019-12-06] MEDS ORDERED: KETOROLAC 30MG/ML VIAL IV ONE (05:15)
[2019-12-06 06:00] VITALS: BP 124/74
== END 2019-12-06 06:01 | disposition home or self-care (01) ==
LOC: ER 03:36
DX: R07.89 Other chest pain (principal); R94.31 Abnormal electrocardiogram [ECG] [EKG]; I11.0 Hypertensive heart disease with heart failure; I50.9 Heart failure, unspecified; E11.9 Type 2 diabetes mellitus without complications; E78.00 Pure hypercholesterolemia, unspecified; Z79.899 Other long term (current) drug therapy; Z79.4 Long term (current) use of insulin
CPT/HCPCS: 36415; 71045; 80053; 83880; 84484; 85025; 93005; 96374; 96375; 96376; 99285; J1885; J2270; J2405

== ENCOUNTER 2019-12-18 17:03 | Inpatient (IN) | payer MEDICARE, OTHER ==
[~2019-12-18] VITALS: Ht 185.4 cm; Wt 72.1 kg
[2019-12-18] MEDS ORDERED: ACETAMINOPHEN 325MG TABLET PO STA (18:32)
[2019-12-18] MEDS ORDERED: CEFTRIAXONE 1 G PREMIX 50 ML IV ONE (18:45)
[2019-12-18] MEDS ORDERED: AZITHROMYCIN 500 MG in DEXT 5% WATER 250 ML IV ONE (18:45)
[2019-12-18 19:24] LABS: BASOPHILS % 0.2 % (0.0-2.0); HEMATOCRIT. 47.4 % (42.0-52.0); HEMOGLOBIN. 15.8 g/dL (14.0-18.0); LYMPHOCYTES % 34.1 % (20.0-50.0); MEAN CORPUSCULAR HEMOGLOBIN 28.9 pg (28.0-32.0); MEAN CORPUSCULAR VOLUME 86.7 fL (80.0-94.0); MEAN PLATELET VOLUME 10.8 fl (7.4-10.4); MONOCYTES % 11.7 % (2.0-8.0); PLATELET 106 x1000/uL (130-400); RED BLOOD CELL COUNT 5.47 mill/uL (4.7-6.1); RED CELL DISTRIBUTION WIDTH 14.7 % (11.6-14.6)
[2019-12-18 19:26] LABS: CHLORIDE 106 mEq/L (98-107)
[2019-12-18 19:35] LABS: D-DIMER 0.2 mg/L FEU (<0.50); PARTIAL THROMBOPLASTIN TIME 30.2 sec (23.4-31.0); PROTHROMBIN TIME 10.7 sec (9.6-11.0)
[2019-12-18 19:38] LABS: CLARITY URINE CLEAR (CLEAR); COLOR URINE DARK YELLOW (YELLOW); KETONES URINE TRACE (NEGATIVE); LEUKOCYTE ESTERASE URINE NEGATIVE (NEGATIVE); NITRITE URINE NEGATIVE (NEGATIVE); OCCULT BLOOD URINE 2+ (NEGATIVE); PROTEIN URINE 4+ (NEGATIVE); UROBILINOGEN URINE 0.2 E.U./dL (0.2-1.0)
[2019-12-18 19:50] LABS: DIGOXIN 0.3 ng/mL (0.9-2.0)
[2019-12-18] MEDS ORDERED: ASPIRIN 325MG EC TABLET PO ONE (20:30)
[2019-12-18 22:50] VITALS: BP 144/89
[2019-12-18] MEDS ORDERED: AZITHROMYCIN 500 MG in DEXT 5% WATER 250 ML IV SCH (23:00)
[2019-12-18] MEDS ORDERED: CEFTRIAXONE 1 G PREMIX 50 ML IV SCH (23:00)
[2019-12-18] MEDS ORDERED: IPRATROPIUM/ALBUTEROL 0.5-3(2.5)MG/3ML NEB NEB PRN (23:00)
[2019-12-18] MEDS ORDERED: DOCUSATE SODIUM 100MG CAPSULE PO PRN (23:00)
[2019-12-18] MEDS ORDERED: ONDANSETRON HCL 4MG/2ML INJ IV PRN (23:00)
[2019-12-18] MEDS ORDERED: CLONIDINE 0.1MG TABLET PO PRN (23:00)
[2019-12-18] MEDS: HYDROCODONE/ACETAMINOPHEN 5/325MG TABLET PO PRN (23:47)
[2019-12-19] MEDS ORDERED: DEXTROSE 50% WATER 50ML SYRINGE IV PRN (00:30)
[2019-12-19 04:00] VITALS: BP 124/88
[2019-12-19 05:15] LABS: *AMPHETAMINES SCREEN URINE NEGATIVE (NEGATIVE); *BARBITURATES SCREEN URINE NEGATIVE (NEGATIVE); *BENZODIAZEPINES SCREEN URINE NEGATIVE (NEGATIVE); *COCAINE SCREEN URINE NEGATIVE (NEGATIVE); METHADONE URINE SCREEN NEGATIVE (NEGATIVE); OPIATES URINE SCREEN PRESUMTIVE POSITIVE (NEGATIVE)
[2019-12-19 05:16] LABS: CANNABINOID URINE SCREEN NEGATIVE (NEGATIVE); PHENCYCLIDINE URINE SCREEN NEGATIVE (NEGATIVE)
[2019-12-19 06:39] LABS: CHLORIDE 105 mEq/L (98-107)
[2019-12-19 06:55] LABS: LDL CHOLESTEROL 58 mg/dL (5-100)
[2019-12-19 06:56] LABS: CREATINE KINASE 99 IU/L (39-308)
[2019-12-19 06:57] LABS: HDL CHOLESTEROL 21 mg/dL (40-59)
[2019-12-19 07:00] LABS: CREATINE KINASE MB FRACTION < 1.0 ng/mL (0.5-3.6)
[2019-12-19] MEDS: BLOOD SUGAR DIAGNOSTIC STRIP TEST SCH ×4 (07:40→20:57)
[2019-12-19 08:00] VITALS: BP_SYST 125; BP_SYST 136; BP_DIAS 86; BP_DIAS 92
[2019-12-19] MEDS: INSULIN LISPRO 100 UNITS/ML SUBCUT SCH ×5 (08:10→20:55)
[2019-12-19 08:20] LABS: BASOPHILS % 0.2 % (0.0-2.0); EOSINOPHILS % 0.2 % (0.0-5.0); HEMATOCRIT. 47.1 % (42.0-52.0); HEMOGLOBIN. 15.5 g/dL (14.0-18.0); LYMPHOCYTES % 43.2 % (20.0-50.0); MEAN CORPUSCULAR HEMOGLOBIN 29.2 pg (28.0-32.0); MEAN CORPUSCULAR VOLUME 88.5 fL (80.0-94.0); MEAN PLATELET VOLUME 11.1 fl (7.4-10.4); MONOCYTES % 9.5 % (2.0-8.0); NEUTROPHILS % 46.9 % (40.0-76.0); PLATELET 102 x1000/uL (130-400); RED BLOOD CELL COUNT 5.31 mill/uL (4.7-6.1)
[2019-12-19] MEDS: HYDROCODONE/ACETAMINOPHEN 5/325MG TABLET PO PRN ×2 (10:31→19:44)
[2019-12-19 12:00] VITALS: BP 115/82
[2019-12-19] MEDS: CEFTRIAXONE 1,000 MG in DEXTROSE 5% WATER 50 ML IV SCH (12:00)
[2019-12-19] MEDS: ACETAMINOPHEN 325MG TABLET PO PRN ×2 (12:47→19:44)
[2019-12-19] MEDS ORDERED: CEFTRIAXONE 1,000 MG in DEXTROSE 5% WATER 50 ML IV SCH (13:00)
[2019-12-19] MEDS: AZITHROMYCIN 500MG in DEXTROSE 5% WATER 250ML IV SCH (13:02)
[2019-12-19] MEDS ORDERED: AZITHROMYCIN 500MG in DEXTROSE 5% WATER 250ML IV SCH (14:00)
[2019-12-19] MEDS: TOPIRAMATE 100MG TABLET PO SCH (17:03)
[2019-12-19] MEDS: DILTIAZEM HCL 120MG CAPSULE CD 24HR PO SCH (17:04)
[2019-12-19] MEDS: APIXABAN 5 MG TABLET PO SCH ×2 (17:04→20:56)
[2019-12-19] MEDS: ALBUTEROL 6.7GM HFA INHALER ORI SCH ×2 (18:00→21:20)
[2019-12-19 19:18] LABS: CREATINE KINASE 81 IU/L (39-308)
[2019-12-19 19:19] LABS: CREATINE KINASE MB FRACTION < 1.0 ng/mL (0.5-3.6)
[2019-12-19 20:00] VITALS: BP 123/72
[2019-12-19] MEDS: SODIUM CHLORIDE 0.9% 1,000 ML IV SCH (20:56)
[2019-12-19] MEDS: DIGOXIN 250MCG TABLET PO SCH (20:56)
[2019-12-19] MEDS: METOPROLOL TARTRATE 25MG TABLET PO SCH (20:56)
[2019-12-19] MEDS: ATORVASTATIN CALCIUM 20MG TABLET PO SCH (20:56)
[2019-12-19] MEDS: INSULIN GLARGINE UD 100 UNITS/ML SYR SUBCUT SCH (23:19)
[2019-12-20] VITALS: BP 122/79
[2019-12-20] MEDS: HYDROCODONE/ACETAMINOPHEN 5/325MG TABLET PO PRN (00:26)
[2019-12-20] MEDS: ALBUTEROL 6.7GM HFA INHALER ORI SCH ×2 (01:02→13:06)
[2019-12-20] MEDS: ACETAMINOPHEN 325MG TABLET PO PRN ×3 (03:21→20:50)
[2019-12-20 04:00] VITALS: BP 148/96
[2019-12-20] MEDS: SODIUM CHLORIDE 0.9% 1,000 ML IV SCH ×2 (06:15→16:04)
[2019-12-20 06:49] LABS: BASOPHILS % 0.3 % (0.0-2.0); HEMOGLOBIN. 15.2 g/dL (14.0-18.0); MEAN CORPUSCULAR HEMOGLOBIN 29.1 pg (28.0-32.0); MEAN CORPUSCULAR VOLUME 88.3 fL (80.0-94.0); MONOCYTES % 8.5 % (2.0-8.0); NEUTROPHILS % 69.2 % (40.0-76.0); RED BLOOD CELL COUNT 5.21 mill/uL (4.7-6.1); RED CELL DISTRIBUTION WIDTH 14.9 % (11.6-14.6)
[2019-12-20] MEDS: BLOOD SUGAR DIAGNOSTIC STRIP TEST SCH ×4 (07:40→20:49)
[2019-12-20 08:00] VITALS: BP 105/55
[2019-12-20] MEDS ORDERED: LISINOPRIL 40MG TABLET PO SCH (09:00)
[2019-12-20] MEDS: TOPIRAMATE 100MG TABLET PO SCH ×2 (09:03→17:10)
[2019-12-20] MEDS: FLUOXETINE HCL 10 MG CAPSULE PO SCH (09:03)
[2019-12-20] MEDS: GUAIFENESIN/DM 600MG/30MG ER TAB 12HR PO PRN ×2 (09:03→09:12)
[2019-12-20] MEDS: APIXABAN 5 MG TABLET PO SCH ×2 (09:03→17:10)
[2019-12-20] MEDS: INSULIN LISPRO 100 UNITS/ML SUBCUT SCH ×4 (09:06→21:38)
[2019-12-20] MEDS: DILTIAZEM HCL 120MG CAPSULE CD 24HR PO SCH (09:13)
[2019-12-20] MEDS: INSULIN GLARGINE UD 100 UNITS/ML SYR SUBCUT SCH ×2 (09:14→21:38)
[2019-12-20] MEDS: METOPROLOL TARTRATE 25MG TABLET PO SCH ×2 (09:15→20:49)
[2019-12-20 09:58] LABS: MEAN PLATELET VOLUME 11.6 fl (7.4-10.4); PLATELET 109 x1000/uL (130-400)
[2019-12-20 12:00] VITALS: BP 107/79
[2019-12-20] MEDS: CEFTRIAXONE 1,000 MG in DEXTROSE 5% WATER 50 ML IV SCH (13:33)
[2019-12-20] MEDS: AZITHROMYCIN 500MG in DEXTROSE 5% WATER 250ML IV SCH (13:36)
[2019-12-20 16:00] VITALS: BP 129/76
[2019-12-20] MEDS: DIGOXIN 250MCG TABLET PO SCH (17:10)
[2019-12-20 20:00] VITALS: BP 140/88
[2019-12-20] MEDS: ATORVASTATIN CALCIUM 20MG TABLET PO SCH (20:48)
[2019-12-21] VITALS: BP_SYST 119; BP_SYST 124; BP_DIAS 75
[2019-12-21] MEDS: ALBUTEROL 6.7GM HFA INHALER ORI SCH ×3 (00:17→17:06)
[2019-12-21 04:00] VITALS: BP 142/82
[2019-12-21] MEDS: SODIUM CHLORIDE 0.9% 1,000 ML IV SCH ×2 (05:49→20:30)
[2019-12-21 06:15] LABS: BASOPHILS % 0.2 % (0.0-2.0); HEMATOCRIT. 42.2 % (42.0-52.0); LYMPHOCYTES % 15.6 % (20.0-50.0); MEAN CORPUSCULAR HEMOGLOBIN 28.9 pg (28.0-32.0); MEAN CORPUSCULAR VOLUME 87.2 fL (80.0-94.0); MEAN PLATELET VOLUME 10.8 fl (7.4-10.4); MONOCYTES % 6.9 % (2.0-8.0); NEUTROPHILS % 77.3 % (40.0-76.0); PLATELET 111 x1000/uL (130-400); RED BLOOD CELL COUNT 4.84 mill/uL (4.7-6.1); RED CELL DISTRIBUTION WIDTH 14.7 % (11.6-14.6)
[2019-12-21] MEDS: BLOOD SUGAR DIAGNOSTIC STRIP TEST SCH ×4 (06:45→20:31)
[2019-12-21 08:00] VITALS: BP 125/68
[2019-12-21] MEDS: METOPROLOL TARTRATE 25MG TABLET PO SCH ×2 (09:59→20:31)
[2019-12-21] MEDS: TOPIRAMATE 100MG TABLET PO SCH ×2 (10:00→17:06)
[2019-12-21] MEDS: DILTIAZEM HCL 120MG CAPSULE CD 24HR PO SCH (10:00)
[2019-12-21] MEDS: FLUOXETINE HCL 10 MG CAPSULE PO SCH (10:00)
[2019-12-21] MEDS: APIXABAN 5 MG TABLET PO SCH ×2 (10:00→17:06)
[2019-12-21] MEDS: INSULIN LISPRO 100 UNITS/ML SUBCUT SCH ×4 (10:01→20:29)
[2019-12-21] MEDS: ACETAMINOPHEN 325MG TABLET PO PRN ×2 (10:48→17:06)
[2019-12-21] MEDS: INSULIN GLARGINE UD 100 UNITS/ML SYR SUBCUT SCH ×2 (10:49→22:11)
[2019-12-21 12:00] VITALS: BP 101/54
[2019-12-21] MEDS: CEFTRIAXONE 1,000 MG in DEXTROSE 5% WATER 50 ML IV SCH (12:53)
[2019-12-21 13:05] LABS: HEPATITIS B SURFACE AB 6.6 mIU/mL
[2019-12-21 13:14] LABS: HEPATITIS B SURFACE ANTIGEN NEGATIVE
[2019-12-21 13:42] LABS: HEPATITIS A AB IGM NEGATIVE (NEGATIVE)
[2019-12-21] MEDS: AZITHROMYCIN 500MG in DEXTROSE 5% WATER 250ML IV SCH (14:11)
[2019-12-21 16:04] VITALS: BP 144/79
[2019-12-21] MEDS: DIGOXIN 250MCG TABLET PO SCH (17:06)
[2019-12-21] MEDS: DEXAMETHASONE 4MG TABLET PO SCH (18:06)
[2019-12-21 18:11] LABS: BG BASE EXCESS -3.7 mmol/L (-2.0-2.0); BG CARBOXYHEMOGLOBIN 0.9 % (0.5-1.5); BG DEOXYHEMOGLOBIN 2.4 % (0.0-5.0); BG FRACTION INSPIRED OXYGEN 100; BG HCO3 ACT 19.8 mmol/L (22.0-26.0); BG METHEMOGLOBIN 0.2 % (0.0-1.5); BG OXYGEN SATURATION 97.6 % (92.0-98.5); BG OXYHEMOGLOBIN 96.5 % (94.0-97.0); BG PCO2 31.8 mmHg (35.0-45.0); BG PH 7.413 (7.350-7.450); BG PO2 99.2 mmHg (75.0-100.0); BG SAMPLE SITE LEFT RADIAL; BG TOTAL HEMOGLOBIN 14.3 g/dL (12.0-18.0); BG VENT MODE MASK - NRB
[2019-12-21] MEDS: THROAT LOZENGES-BENZOCAINE/MENTH/CETYLPYRD CL LOZENGES MM PRN (18:29)
[2019-12-21] MEDS ORDERED: REMDESIVIR 200 MG in SODIUM CHLORIDE 0.9% 250 ML IV SCH (20:00)
[2019-12-21] MEDS: ATORVASTATIN CALCIUM 20MG TABLET PO SCH (20:31)
[2019-12-21 20:32] VITALS: BP 145/62
[2019-12-21] MEDS ORDERED: SODIUM CHLORIDE 0.9% 500 ML IV ONE (21:00)
[2019-12-22] VITALS (9 sets, daily range): BP systolic 119–148; BP diastolic 59–86
[2019-12-22] MEDS: ALBUTEROL 6.7GM HFA INHALER ORI SCH ×4 (02:23→17:58)
[2019-12-22] MEDS: SODIUM CHLORIDE 0.9% 1,000 ML IV SCH ×2 (05:46→17:56)
[2019-12-22] MEDS: THROAT LOZENGES-BENZOCAINE/MENTH/CETYLPYRD CL LOZENGES MM PRN ×2 (06:51→12:11)
[2019-12-22] MEDS: BLOOD SUGAR DIAGNOSTIC STRIP TEST SCH ×4 (07:03→21:02)
[2019-12-22 07:55] LABS: HEMATOCRIT. 41.1 % (42.0-52.0); HEMOGLOBIN. 13.4 g/dL (14.0-18.0); LYMPHOCYTES % 13.4 % (20.0-50.0); MEAN CORPUSCULAR HEMOGLOBIN 28.7 pg (28.0-32.0); MEAN CORPUSCULAR VOLUME 87.8 fL (80.0-94.0); MEAN PLATELET VOLUME 10.7 fl (7.4-10.4); MONOCYTES % 5.5 % (2.0-8.0); NEUTROPHILS % 81.1 % (40.0-76.0); PLATELET 130 x1000/uL (130-400); RED BLOOD CELL COUNT 4.68 mill/uL (4.7-6.1); RED CELL DISTRIBUTION WIDTH 15.1 % (11.6-14.6)
[2019-12-22 07:59] LABS: CHLORIDE 106 mEq/L (98-107)
[2019-12-22] MEDS: APIXABAN 5 MG TABLET PO SCH ×2 (08:53→17:56)
[2019-12-22] MEDS: METOPROLOL TARTRATE 25MG TABLET PO SCH ×2 (08:53→21:02)
[2019-12-22] MEDS: FLUOXETINE HCL 10 MG CAPSULE PO SCH (08:53)
[2019-12-22] MEDS: DEXAMETHASONE 4MG TABLET PO SCH (08:53)
[2019-12-22] MEDS: DILTIAZEM HCL 120MG CAPSULE CD 24HR PO SCH (08:53)
[2019-12-22] MEDS: TOPIRAMATE 100MG TABLET PO SCH ×2 (08:54→17:56)
[2019-12-22] MEDS: INSULIN LISPRO 100 UNITS/ML SUBCUT SCH ×4 (08:56→21:02)
[2019-12-22] MEDS: INSULIN GLARGINE UD 100 UNITS/ML SYR SUBCUT SCH ×2 (09:54→21:03)
[2019-12-22] MEDS: CEFTRIAXONE 1,000 MG in DEXTROSE 5% WATER 50 ML IV SCH (12:11)
[2019-12-22] MEDS: AZITHROMYCIN 500MG in DEXTROSE 5% WATER 250ML IV SCH (13:00)
[2019-12-22 16:47] LABS: BG BASE EXCESS -2.9 mmol/L (-2.0-2.0); BG CARBOXYHEMOGLOBIN 0.3 % (0.5-1.5); BG DEOXYHEMOGLOBIN 3.7 % (0.0-5.0); BG FRACTION INSPIRED OXYGEN 100; BG HCO3 ACT 19.9 mmol/L (22.0-26.0); BG METHEMOGLOBIN 0.2 % (0.0-1.5); BG OXYGEN SATURATION 96.3 % (92.0-98.5); BG OXYHEMOGLOBIN 95.8 % (94.0-97.0); BG PCO2 29.5 mmHg (35.0-45.0); BG PH 7.447 (7.350-7.450); BG PO2 85.2 mmHg (75.0-100.0); BG SAMPLE SITE RIGHT RADIAL; BG TOTAL HEMOGLOBIN 13.5 g/dL (12.0-18.0); BG VENT MODE MASK - NRB
[2019-12-22] MEDS: DIGOXIN 250MCG TABLET PO SCH (17:56)
[2019-12-22] MEDS ORDERED: REMDESIVIR 100 MG in SODIUM CHLORIDE 0.9% 250 ML IV SCH (20:00)
[2019-12-22] MEDS: ATORVASTATIN CALCIUM 20MG TABLET PO SCH (21:02)
[2019-12-23] VITALS: BP 124/86
[2019-12-23] MEDS: THROAT LOZENGES-BENZOCAINE/MENTH/CETYLPYRD CL LOZENGES MM PRN (00:14)
[2019-12-23] MEDS: SODIUM CHLORIDE 0.9% 1,000 ML IV SCH ×3 (00:22→22:03)
[2019-12-23] MEDS: ALBUTEROL 6.7GM HFA INHALER ORI SCH ×4 (00:22→17:47)
[2019-12-23 04:00] VITALS: BP_SYST 143
[2019-12-23] MEDS: BLOOD SUGAR DIAGNOSTIC STRIP TEST SCH ×4 (06:52→21:21)
[2019-12-23 08:00] VITALS: BP 137/72
[2019-12-23 08:13] LABS: BASOPHILS % 0.3 % (0.0-2.0); HEMATOCRIT. 39.9 % (42.0-52.0); HEMOGLOBIN. 13.2 g/dL (14.0-18.0); LYMPHOCYTES % 13.1 % (20.0-50.0); MEAN CORPUSCULAR HEMOGLOBIN 28.7 pg (28.0-32.0); MEAN CORPUSCULAR VOLUME 86.7 fL (80.0-94.0); MEAN PLATELET VOLUME 10.7 fl (7.4-10.4); MONOCYTES % 9.7 % (2.0-8.0); NEUTROPHILS % 76.9 % (40.0-76.0); PLATELET 171 x1000/uL (130-400); RED BLOOD CELL COUNT 4.61 mill/uL (4.7-6.1); RED CELL DISTRIBUTION WIDTH 15.1 % (11.6-14.6)
[2019-12-23 08:26] LABS: CHLORIDE 111 mEq/L (98-107)
[2019-12-23] MEDS: DILTIAZEM HCL 120MG CAPSULE CD 24HR PO SCH (09:23)
[2019-12-23] MEDS: APIXABAN 5 MG TABLET PO SCH ×2 (09:23→17:45)
[2019-12-23] MEDS: FLUOXETINE HCL 10 MG CAPSULE PO SCH (09:24)
[2019-12-23] MEDS: DEXAMETHASONE 4MG TABLET PO SCH (09:24)
[2019-12-23] MEDS: TOPIRAMATE 100MG TABLET PO SCH ×2 (09:24→17:45)
[2019-12-23] MEDS: METOPROLOL TARTRATE 25MG TABLET PO SCH ×2 (09:24→21:21)
[2019-12-23] MEDS: GUAIFENESIN/DM 600MG/30MG ER TAB 12HR PO PRN (09:24)
[2019-12-23] MEDS: INSULIN LISPRO 100 UNITS/ML SUBCUT SCH ×4 (09:41→21:33)
[2019-12-23] MEDS: INSULIN GLARGINE UD 100 UNITS/ML SYR SUBCUT SCH ×2 (10:01→22:03)
[2019-12-23 12:00] VITALS: BP 139/88
[2019-12-23] MEDS: CEFTRIAXONE 1,000 MG in DEXTROSE 5% WATER 50 ML IV SCH (12:51)
[2019-12-23] MEDS: AZITHROMYCIN 500MG in DEXTROSE 5% WATER 250ML IV SCH (13:39)
[2019-12-23 16:00] VITALS: BP 143/77
[2019-12-23] MEDS: DIGOXIN 250MCG TABLET PO SCH (17:45)
[2019-12-23 20:00] VITALS: BP 144/77
[2019-12-23] MEDS: ATORVASTATIN CALCIUM 20MG TABLET PO SCH (21:21)
[2019-12-24] VITALS: BP 157/92
[2019-12-24] MEDS: ACETAMINOPHEN 325MG TABLET PO PRN ×2 (00:13→23:40)
[2019-12-24] MEDS: ALBUTEROL 6.7GM HFA INHALER ORI SCH ×5 (00:13→23:52)
[2019-12-24 04:00] VITALS: BP 141/72
[2019-12-24] MEDS: BLOOD SUGAR DIAGNOSTIC STRIP TEST SCH ×4 (06:33→20:24)
[2019-12-24 06:50] LABS: CHLORIDE 115 mEq/L (98-107)
[2019-12-24] MEDS: SODIUM CHLORIDE 0.9% 1,000 ML IV SCH ×2 (07:45→16:22)
[2019-12-24 08:30] VITALS: BP 151/85
[2019-12-24] MEDS: DEXAMETHASONE 4MG TABLET PO SCH (08:58)
[2019-12-24] MEDS: METOPROLOL TARTRATE 25MG TABLET PO SCH ×2 (08:58→20:24)
[2019-12-24] MEDS: DILTIAZEM HCL 120MG CAPSULE CD 24HR PO SCH (08:58)
[2019-12-24] MEDS: APIXABAN 5 MG TABLET PO SCH ×2 (08:58→16:25)
[2019-12-24] MEDS: TOPIRAMATE 100MG TABLET PO SCH ×2 (08:59→16:25)
[2019-12-24] MEDS: FLUOXETINE HCL 10 MG CAPSULE PO SCH (09:02)
[2019-12-24] MEDS: INSULIN LISPRO 100 UNITS/ML SUBCUT SCH ×4 (09:03→21:34)
[2019-12-24] MEDS: INSULIN GLARGINE UD 100 UNITS/ML SYR SUBCUT SCH ×2 (10:18→21:34)
[2019-12-24 12:30] VITALS: BP 146/81
[2019-12-24] MEDS ORDERED: ACETAZOLAMIDE SODIUM 500MG/VIAL IV SCH (14:00)
[2019-12-24 16:00] VITALS: BP 145/79
[2019-12-24] MEDS: DIGOXIN 250MCG TABLET PO SCH (17:15)
[2019-12-24 20:00] VITALS: BP 162/90
[2019-12-24] MEDS: ATORVASTATIN CALCIUM 20MG TABLET PO SCH (20:23)
[2019-12-25] VITALS: BP 164/93
[2019-12-25] MEDS: THROAT LOZENGES-BENZOCAINE/MENTH/CETYLPYRD CL LOZENGES MM PRN ×2 (01:55→13:57)
[2019-12-25] MEDS: SODIUM CHLORIDE 0.9% 1,000 ML IV SCH ×3 (02:01→23:45)
[2019-12-25 04:00] VITALS: BP 138/55
[2019-12-25] MEDS: ALBUTEROL 6.7GM HFA INHALER ORI SCH ×3 (05:59→17:26)
[2019-12-25] MEDS: BLOOD SUGAR DIAGNOSTIC STRIP TEST SCH ×4 (06:42→22:11)
[2019-12-25 07:38] LABS: CHLORIDE 114 mEq/L (98-107)
[2019-12-25 08:00] VITALS: BP 151/78
[2019-12-25] MEDS: APIXABAN 5 MG TABLET PO SCH ×2 (09:26→17:25)
[2019-12-25] MEDS: INSULIN LISPRO 100 UNITS/ML SUBCUT SCH ×4 (09:26→22:10)
[2019-12-25] MEDS: TOPIRAMATE 100MG TABLET PO SCH ×2 (09:26→17:25)
[2019-12-25] MEDS: DILTIAZEM HCL 120MG CAPSULE CD 24HR PO SCH (09:27)
[2019-12-25] MEDS: DEXAMETHASONE 4MG TABLET PO SCH (09:27)
[2019-12-25] MEDS: FLUOXETINE HCL 10 MG CAPSULE PO SCH (09:27)
[2019-12-25] MEDS: METOPROLOL TARTRATE 25MG TABLET PO SCH ×2 (09:27→22:10)
[2019-12-25] MEDS: INSULIN GLARGINE UD 100 UNITS/ML SYR SUBCUT SCH ×2 (10:25→22:12)
[2019-12-25 12:36] VITALS: BP 151/87
[2019-12-25 16:54] VITALS: BP 144/86
[2019-12-25] MEDS: DIGOXIN 250MCG TABLET PO SCH (17:25)
[2019-12-25 20:00] VITALS: BP 150/85
[2019-12-25] MEDS: ATORVASTATIN CALCIUM 20MG TABLET PO SCH (22:10)
[2019-12-25] MEDS: ACETAMINOPHEN 325MG TABLET PO PRN (23:10)
[2019-12-26] VITALS: BP 154/83
[2019-12-26] MEDS: ALBUTEROL 6.7GM HFA INHALER ORI SCH ×4 (00:41→17:43)
[2019-12-26 04:00] VITALS: BP 154/88
[2019-12-26 06:43] LABS: CHLORIDE 117 mEq/L (98-107)
[2019-12-26] MEDS: BLOOD SUGAR DIAGNOSTIC STRIP TEST SCH ×4 (07:34→20:56)
[2019-12-26] MEDS: INSULIN LISPRO 100 UNITS/ML SUBCUT SCH ×4 (08:10→20:56)
[2019-12-26] MEDS: FLUOXETINE HCL 10 MG CAPSULE PO SCH (09:48)
[2019-12-26] MEDS: APIXABAN 5 MG TABLET PO SCH ×2 (09:48→17:42)
[2019-12-26] MEDS: DEXAMETHASONE 4MG TABLET PO SCH (09:48)
[2019-12-26] MEDS: TOPIRAMATE 100MG TABLET PO SCH ×2 (09:48→17:42)
[2019-12-26] MEDS: GUAIFENESIN/DM 600MG/30MG ER TAB 12HR PO PRN (09:48)
[2019-12-26] MEDS: SODIUM CHLORIDE 0.9% 1,000 ML IV SCH ×2 (09:48→20:05)
[2019-12-26] MEDS: METOPROLOL TARTRATE 25MG TABLET PO SCH ×2 (09:49→20:54)
[2019-12-26] MEDS: DILTIAZEM HCL 120MG CAPSULE CD 24HR PO SCH (09:49)
[2019-12-26] MEDS: INSULIN GLARGINE UD 100 UNITS/ML SYR SUBCUT SCH ×2 (10:17→21:39)
[2019-12-26 10:33] LABS: BG BASE EXCESS -5.3 mmol/L (-2.0-2.0); BG CARBOXYHEMOGLOBIN 0.4 % (0.5-1.5); BG DEOXYHEMOGLOBIN 9.7 % (0.0-5.0); BG FRACTION INSPIRED OXYGEN 21; BG HCO3 ACT 17.3 mmol/L (22.0-26.0); BG METHEMOGLOBIN 0.2 % (0.0-1.5); BG OXYGEN SATURATION 90.2 % (92.0-98.5); BG OXYHEMOGLOBIN 89.7 % (94.0-97.0); BG PCO2 26.6 mmHg (35.0-45.0); BG PO2 63.2 mmHg (75.0-100.0); BG SAMPLE SITE RIGHT RADIAL; BG TOTAL HEMOGLOBIN 14.8 g/dL (12.0-18.0); BG VENT MODE ROOM AIR
[2019-12-26] MEDS ORDERED: DIPHENHYDRAMINE 25MG CAPSULE PO PRN (16:30)
[2019-12-26] MEDS ORDERED: MORPHINE SULFATE 2 MG/ML CPJ (NOT FOR IM USE) IV PRN (16:30)
[2019-12-26] MEDS ORDERED: LORAZEPAM 0.5MG TABLET PO PRN (16:30)
[2019-12-26] MEDS: CITRIC ACID/SODIUM CITRATE SOLN 30ML UDC PO SCH ×2 (17:00→17:42)
[2019-12-26] MEDS: DIGOXIN 250MCG TABLET PO SCH (17:49)
[2019-12-26 20:44] VITALS: BP 162/82
[2019-12-26] MEDS: ATORVASTATIN CALCIUM 20MG TABLET PO SCH (20:54)
[2019-12-26] MEDS: HYDROCODONE/ACETAMINOPHEN 5/325MG TABLET PO PRN (20:55)
[2019-12-27 00:50] VITALS: BP 162/95
[2019-12-27 04:00] VITALS: BP 174/92
[2019-12-27] MEDS: SODIUM CHLORIDE 0.9% 1,000 ML IV SCH ×2 (06:02→18:49)
[2019-12-27] MEDS: ALBUTEROL 6.7GM HFA INHALER ORI SCH ×5 (06:02→23:22)
[2019-12-27] MEDS: BLOOD SUGAR DIAGNOSTIC STRIP TEST SCH ×4 (07:31→21:57)
[2019-12-27 08:00] VITALS: BP 163/91
[2019-12-27] MEDS: INSULIN LISPRO 100 UNITS/ML SUBCUT SCH ×4 (08:53→22:05)
[2019-12-27 09:25] LABS: BASOPHILS % 0.4 % (0.0-2.0); EOSINOPHILS % 0.1 % (0.0-5.0); HEMATOCRIT. 45.1 % (42.0-52.0); HEMOGLOBIN. 14.9 g/dL (14.0-18.0); LYMPHOCYTES % 18.5 % (20.0-50.0); MEAN CORPUSCULAR HEMOGLOBIN 28.9 pg (28.0-32.0); MEAN CORPUSCULAR VOLUME 87.8 fL (80.0-94.0); MEAN PLATELET VOLUME 10.4 fl (7.4-10.4); MONOCYTES % 7.8 % (2.0-8.0); NEUTROPHILS % 73.2 % (40.0-76.0); PLATELET 330 x1000/uL (130-400); RED BLOOD CELL COUNT 5.14 mill/uL (4.7-6.1); RED CELL DISTRIBUTION WIDTH 15.1 % (11.6-14.6)
[2019-12-27 09:53] LABS: DIGOXIN 0.8 ng/mL (0.9-2.0)
[2019-12-27] MEDS: DILTIAZEM HCL 120MG CAPSULE CD 24HR PO SCH (10:05)
[2019-12-27] MEDS: METOPROLOL TARTRATE 25MG TABLET PO SCH ×2 (10:05→21:57)
[2019-12-27] MEDS: DEXAMETHASONE 2MG TABLET PO SCH (10:06)
[2019-12-27] MEDS: FLUOXETINE HCL 10 MG CAPSULE PO SCH (10:06)
[2019-12-27] MEDS: CITRIC ACID/SODIUM CITRATE SOLN 30ML UDC PO SCH ×3 (10:08→18:40)
[2019-12-27] MEDS: HYDROCODONE/ACETAMINOPHEN 5/325MG TABLET PO PRN (10:08)
[2019-12-27] MEDS: INSULIN GLARGINE UD 100 UNITS/ML SYR SUBCUT SCH ×2 (10:09→22:09)
[2019-12-27] MEDS: APIXABAN 5 MG TABLET PO SCH ×2 (10:10→18:05)
[2019-12-27] MEDS: TOPIRAMATE 100MG TABLET PO SCH ×2 (10:10→18:05)
[2019-12-27 12:00] VITALS: BP 141/87
[2019-12-27] MEDS ORDERED: AMLO5TAB88 MT (14:55)
[2019-12-27] MEDS ORDERED: DEXA2TAB MT (14:55)
[2019-12-27] MEDS ORDERED: DEX2 PO (14:55)
[2019-12-27 16:00] VITALS: BP 169/70
[2019-12-27] MEDS: DIGOXIN 250MCG TABLET PO SCH (18:41)
[2019-12-27 20:00] VITALS: BP 161/86
[2019-12-27] MEDS: ATORVASTATIN CALCIUM 20MG TABLET PO SCH (21:57)
[2019-12-28] VITALS: BP 146/73
[2019-12-28 04:00] VITALS: BP 155/87
[2019-12-28] MEDS: ALBUTEROL 6.7GM HFA INHALER ORI SCH ×2 (05:29→12:17)
[2019-12-28] MEDS: BLOOD SUGAR DIAGNOSTIC STRIP TEST SCH ×2 (07:25→12:29)
[2019-12-28] MEDS: INSULIN LISPRO 100 UNITS/ML SUBCUT SCH ×2 (07:25→12:33)
[2019-12-28 08:00] VITALS: BP 141/66
[2019-12-28 08:14] LABS: BASOPHILS % 0.2 % (0.0-2.0); EOSINOPHILS % 0.2 % (0.0-5.0); HEMATOCRIT. 42.9 % (42.0-52.0); HEMOGLOBIN. 14.1 g/dL (14.0-18.0); LYMPHOCYTES % 18.6 % (20.0-50.0); MEAN CORPUSCULAR HEMOGLOBIN 28.5 pg (28.0-32.0); MEAN CORPUSCULAR VOLUME 86.7 fL (80.0-94.0); MEAN PLATELET VOLUME 10.3 fl (7.4-10.4); MONOCYTES % 9.9 % (2.0-8.0); NEUTROPHILS % 71.1 % (40.0-76.0); PLATELET 332 x1000/uL (130-400); RED BLOOD CELL COUNT 4.95 mill/uL (4.7-6.1); RED CELL DISTRIBUTION WIDTH 14.9 % (11.6-14.6)
[2019-12-28] MEDS: METOPROLOL TARTRATE 25MG TABLET PO SCH (08:51)
[2019-12-28] MEDS: FLUOXETINE HCL 10 MG CAPSULE PO SCH (08:51)
[2019-12-28] MEDS: DEXAMETHASONE 2MG TABLET PO SCH (08:51)
[2019-12-28] MEDS: DILTIAZEM HCL 120MG CAPSULE CD 24HR PO SCH (08:52)
[2019-12-28] MEDS: APIXABAN 5 MG TABLET PO SCH (08:52)
[2019-12-28] MEDS: TOPIRAMATE 100MG TABLET PO SCH (08:52)
[2019-12-28] MEDS: CITRIC ACID/SODIUM CITRATE SOLN 30ML UDC PO SCH ×2 (08:52→12:32)
[2019-12-28] MEDS: INSULIN GLARGINE UD 100 UNITS/ML SYR SUBCUT SCH (11:18)
[2019-12-28] MEDS: SODIUM CHLORIDE 0.9% 1,000 ML IV SCH (11:19)
[2019-12-28 11:58] VITALS: BP 131/77
[2019-12-28 12:00] VITALS: BP 138/86
== END 2019-12-28 14:31 | disposition home or self-care (01) | DRG 871 ==
LOC: ER 17:03 → 7WST 20:18 → EDBEDREQTM 20:25 → EDBEDREQ 20:25 → ENRESERV 21:14
PROVIDERS: ADMIT Internal Medicine; ATTEND Internal Medicine
PROC: 30233M1 Transfusion of Nonautologous Plasma Cryoprecipitate into Peripheral Vein, Percutaneous Approach (ICD-10-PCS; principal; 2019-12-22)
DX: A41.89 Other specified sepsis (principal); U07.1 COVID-19; J96.01 Acute respiratory failure with hypoxia; J12.89 Other viral pneumonia; I50.22 Chronic systolic (congestive) heart failure; N17.9 Acute kidney failure, unspecified; E11.65 Type 2 diabetes mellitus with hyperglycemia; I11.0 Hypertensive heart disease with heart failure; I48.91 Unspecified atrial fibrillation; G43.909 Migraine, unspecified, not intractable, without status migrainosus; D69.6 Thrombocytopenia, unspecified; D72.821 Monocytosis (symptomatic); E88.09 Other disorders of plasma-protein metabolism, not elsewhere classified; R74.0 Nonspecific elevation of levels of transaminase and lactic acid dehydrogenase [LDH]; I34.0 Nonrheumatic mitral (valve) insufficiency; R31.9 Hematuria, unspecified; Z20.828 Contact with and (suspected) exposure to other viral communicable diseases; Z79.01 Long term (current) use of anticoagulants; Z79.4 Long term (current) use of insulin; Z90.89 Acquired absence of other organs; Z82.49 Family history of ischemic heart disease and other diseases of the circulatory system; Z83.3 Family history of diabetes mellitus; Z79.891 Long term (current) use of opiate analgesic; Z79.899 Other long term (current) drug therapy
CPT/HCPCS: 36415; 36600; 71045; 76700; 80048; 80053; 80061; 80162; 80305; 81003; 82375; 82550; 82553; 82570; 82728; 82805; 82962; 83036; 83605; 83615; 83880; 84145; 84156; 84443; 84484; 85025; 85379; 85384; 86140; 86705; 86706; 86709; 86803; 86850; 86900; 86927; 87340; 93971; 94640; 96365; 99285; J0456; J0696; J1120; J1815; J7030; J7050; J7060; J8540; P9017; Q9957; U0003-CS

== ENCOUNTER 2019-12-31 16:51 | Emergency (ER) | payer MEDICARE, OTHER ==
[~2019-12-31] VITALS: Ht 185.4 cm; Wt 76.0 kg
[~2019-12-31 16:51] MED LIST changes: +AMLO5TAB88 MT; +DEX2 PO; +DEXA2TAB MT; -LISI40TA4 PO
[2019-12-31 19:04] LABS: BG BASE EXCESS -6.1 mmol/L (-2.0-2.0); BG CARBOXYHEMOGLOBIN 0.4 % (0.5-1.5); BG DEOXYHEMOGLOBIN 4.8 % (0.0-5.0); BG FRACTION INSPIRED OXYGEN 21; BG HCO3 ACT 16.7 mmol/L (22.0-26.0); BG METHEMOGLOBIN 0.3 % (0.0-1.5); BG OXYGEN SATURATION 95.2 % (92.0-98.5); BG OXYHEMOGLOBIN 94.5 % (94.0-97.0); BG PCO2 26.4 mmHg (35.0-45.0); BG PO2 78.2 mmHg (75.0-100.0); BG SAMPLE SITE RIGHT RADIAL; BG TOTAL HEMOGLOBIN 13.5 g/dL (12.0-18.0); BG VENT MODE ROOM AIR
[2019-12-31 19:17] LABS: BASOPHILS % 0.4 % (0.0-2.0); EOSINOPHILS % 0.1 % (0.0-5.0); HEMATOCRIT. 38.8 % (42.0-52.0); HEMOGLOBIN. 12.9 g/dL (14.0-18.0); LYMPHOCYTES % 8.1 % (20.0-50.0); MEAN CORPUSCULAR HEMOGLOBIN 28.9 pg (28.0-32.0); MEAN CORPUSCULAR VOLUME 87.2 fL (80.0-94.0); MEAN PLATELET VOLUME 9.9 fl (7.4-10.4); MONOCYTES % 2.8 % (2.0-8.0); NEUTROPHILS % 88.6 % (40.0-76.0); PLATELET 415 x1000/uL (130-400); RED BLOOD CELL COUNT 4.45 mill/uL (4.7-6.1); RED CELL DISTRIBUTION WIDTH 15.1 % (11.6-14.6)
[2019-12-31 19:34] LABS: CHLORIDE 115 mEq/L (98-107)
[2019-12-31 21:06] VITALS: BP 153/99
== END 2019-12-31 21:09 | disposition home or self-care (01) ==
LOC: ER 16:51
DX: U07.1 COVID-19 (principal); I48.91 Unspecified atrial fibrillation; I50.9 Heart failure, unspecified; E11.9 Type 2 diabetes mellitus without complications; Z79.899 Other long term (current) drug therapy
CPT/HCPCS: 36415; 36600; 71045; 80053; 82375; 82805; 85025; 93005; 99285

== ENCOUNTER 2020-01-09 09:07 | Emergency (ER) | payer MEDICARE, OTHER ==
[~2020-01-09] VITALS: Ht 175.3 cm; Wt 101.0 kg
[2020-01-09] MEDS ORDERED: ACETAMINOPHEN 325MG TABLET PO STA (09:42)
[2020-01-09] MEDS ORDERED: SODIUM CHLORIDE 0.9% 1,000 ML IV ONE (09:42)
[2020-01-09] MEDS ORDERED: IBUPROFEN 600MG TABLET PO STA (09:42)
[2020-01-09 09:56] LABS: BASOPHILS % 1.9 % (0.0-2.0); EOSINOPHILS % 2.6 % (0.0-5.0); HEMATOCRIT. 39.7 % (42.0-52.0); HEMOGLOBIN. 13.3 g/dL (14.0-18.0); LYMPHOCYTES % 36.6 % (20.0-50.0); MEAN CORPUSCULAR HEMOGLOBIN 29.4 pg (28.0-32.0); MEAN CORPUSCULAR VOLUME 87.8 fL (80.0-94.0); MEAN PLATELET VOLUME 9.6 fl (7.4-10.4); MONOCYTES % 6.8 % (2.0-8.0); NEUTROPHILS % 52.1 % (40.0-76.0); PLATELET 250 x1000/uL (130-400); RED BLOOD CELL COUNT 4.53 mill/uL (4.7-6.1); RED CELL DISTRIBUTION WIDTH 15.6 % (11.6-14.6)
[2020-01-09 10:02] LABS: CHLORIDE 109 mEq/L (98-107)
[2020-01-09] MEDS ORDERED: MORPHINE SULFATE 4 MG/ML CPJ (NOT FOR IM USE) IV ONE (11:00)
[2020-01-09] MEDS ORDERED: IOHEXOL-350 100 ML BOTTLE ONE (13:01)
[2020-01-09 14:20] VITALS: BP 132/86
== END 2020-01-09 14:36 | disposition home or self-care (01) ==
LOC: ER 09:07
DX: U07.1 COVID-19 (principal); R06.02 Shortness of breath; R07.89 Other chest pain; I11.0 Hypertensive heart disease with heart failure; I50.9 Heart failure, unspecified; G43.909 Migraine, unspecified, not intractable, without status migrainosus; E11.9 Type 2 diabetes mellitus without complications; Z79.899 Other long term (current) drug therapy; Z79.4 Long term (current) use of insulin
CPT/HCPCS: 36415; 71045; 71275; 80053; 83880; 84484; 85025; 85379; 93005; 96361; 96374; 99285; J2270; J7030; Q9967

== ENCOUNTER 2020-01-28 16:50 | Emergency (ER) | payer MEDICARE, OTHER ==
[~2020-01-28] VITALS: Ht 185.4 cm; Wt 102.0 kg
[2020-01-28 18:27] LABS: BASOPHILS % 1.3 % (0.0-2.0); EOSINOPHILS % 0.8 % (0.0-5.0); HEMATOCRIT. 41.2 % (42.0-52.0); HEMOGLOBIN. 13.9 g/dL (14.0-18.0); LYMPHOCYTES % 37.2 % (20.0-50.0); MEAN CORPUSCULAR HEMOGLOBIN 29.2 pg (28.0-32.0); MEAN CORPUSCULAR VOLUME 86.8 fL (80.0-94.0); MEAN PLATELET VOLUME 10.7 fl (7.4-10.4); MONOCYTES % 7.6 % (2.0-8.0); NEUTROPHILS % 53.1 % (40.0-76.0); PLATELET 181 x1000/uL (130-400); RED BLOOD CELL COUNT 4.75 mill/uL (4.7-6.1); RED CELL DISTRIBUTION WIDTH 14.9 % (11.6-14.6)
[2020-01-28 18:35] LABS: CHLORIDE 107 mEq/L (98-107)
[2020-01-28 18:48] LABS: METHADONE URINE SCREEN NEGATIVE (NEGATIVE); OPIATES URINE SCREEN NEGATIVE (NEGATIVE)
[2020-01-28 18:49] LABS: *AMPHETAMINES SCREEN URINE NEGATIVE (NEGATIVE); *BARBITURATES SCREEN URINE NEGATIVE (NEGATIVE); *BENZODIAZEPINES SCREEN URINE NEGATIVE (NEGATIVE); *COCAINE SCREEN URINE NEGATIVE (NEGATIVE); CANNABINOID URINE SCREEN NEGATIVE (NEGATIVE); PHENCYCLIDINE URINE SCREEN NEGATIVE (NEGATIVE)
[2020-01-28 21:00] VITALS: BP 175/101
== END 2020-01-28 21:00 | disposition left against medical advice (07) ==
LOC: ER 16:50
DX: R07.89 Other chest pain (principal); I11.0 Hypertensive heart disease with heart failure; I50.9 Heart failure, unspecified; Z79.899 Other long term (current) drug therapy
CPT/HCPCS: 36415; 71045; 80053; 80305; 82962; 83605; 83880; 84484; 85025; 93005; 99285

== ENCOUNTER 2020-01-31 05:25 | Inpatient (IN) | payer MEDICARE, OTHER ==
[~2020-01-31] VITALS: Ht 185.4 cm; Wt 103.6 kg
[2020-01-31 06:22] LABS: BASOPHILS % 1.3 % (0.0-2.0); EOSINOPHILS % 1.3 % (0.0-5.0); HEMATOCRIT. 39.1 % (42.0-52.0); HEMOGLOBIN. 14.1 g/dL (14.0-18.0); LYMPHOCYTES % 45.7 % (20.0-50.0); MEAN CORPUSCULAR HEMOGLOBIN 31.5 pg (28.0-32.0); MEAN CORPUSCULAR VOLUME 87.6 fL (80.0-94.0); MEAN PLATELET VOLUME 10.8 fl (7.4-10.4); MONOCYTES % 7.5 % (2.0-8.0); NEUTROPHILS % 44.2 % (40.0-76.0); PLATELET 212 x1000/uL (130-400); RED BLOOD CELL COUNT 4.46 mill/uL (4.7-6.1)
[2020-01-31 06:29] LABS: CHLORIDE 105 mEq/L (98-107)
[2020-01-31 06:34] LABS: INR 0.9; PROTHROMBIN TIME 9.8 sec (9.6-11.0)
[2020-01-31] MEDS ORDERED: NITROGLYCERIN 0.4MG TABLET SL SL ONE (06:45)
[2020-01-31] MEDS ORDERED: METOPROLOL TARTRATE 25MG TABLET PO ONE (06:45)
[2020-01-31] MEDS ORDERED: ASPIRIN 81MG EC TABLET PO ONE (06:45)
[2020-01-31 06:46] LABS: *AMPHETAMINES SCREEN URINE NEGATIVE (NEGATIVE); *BARBITURATES SCREEN URINE NEGATIVE (NEGATIVE)
[2020-01-31 06:47] LABS: *BENZODIAZEPINES SCREEN URINE NEGATIVE (NEGATIVE); *COCAINE SCREEN URINE NEGATIVE (NEGATIVE); CANNABINOID URINE SCREEN NEGATIVE (NEGATIVE); METHADONE URINE SCREEN NEGATIVE (NEGATIVE); OPIATES URINE SCREEN NEGATIVE (NEGATIVE); PHENCYCLIDINE URINE SCREEN NEGATIVE (NEGATIVE)
[2020-01-31 06:47] LABS: ETHANOL BLOOD 12 mg/dL
[2020-01-31] MEDS ORDERED: MORPHINE SULFATE 4 MG/ML CPJ (NOT FOR IM USE) IV ONE (07:15)
[2020-01-31] MEDS ORDERED: ATORVASTATIN CALCIUM 40MG TABLET PO STA (07:27)
[2020-01-31] MEDS ORDERED: CEFTRIAXONE 1 G PREMIX 50 ML IV ONE (07:30)
[2020-01-31] MEDS ORDERED: AZITHROMYCIN 500 MG in DEXT 5% WATER 250 ML IV SCH (07:30)
[2020-01-31] MEDS ORDERED: IPRATROPIUM/ALBUTEROL 0.5-3(2.5)MG/3ML NEB HHN PRN (09:30)
[2020-01-31] MEDS ORDERED: CLONIDINE 0.1MG TABLET PO PRN (09:30)
[2020-01-31] MEDS ORDERED: ACETAMINOPHEN 325MG TABLET PO PRN (09:30)
[2020-01-31] MEDS ORDERED: ONDANSETRON HCL 4MG/2ML INJ IV PRN (09:30)
[2020-01-31] MEDS ORDERED: DIPHENHYDRAMINE 50MG/ML VIAL IV PRN (09:30)
[2020-01-31 09:46] LABS: PHOSPHORUS 3.4 mg/dL (2.5-4.9)
[2020-01-31] MEDS ORDERED: ENOXAPARIN 40MG/0.4ML SYR SUBCUT SCH (10:00)
[2020-01-31] MEDS ORDERED: MVI, ADULT NO.1 10 ML, FOLIC ACID 1 MG, THIAMINE HCL 100 MG in SODIUM CHLORIDE 0.9% 1,0... IV ONE ×4 (10:00)
[2020-01-31 11:14] VITALS: BP 148/98
[2020-01-31 12:00] VITALS: BP 146/95
[2020-01-31] MEDS: AMLODIPINE 2.5MG TABLET PO SCH ×2 (12:02→23:31)
[2020-01-31] MEDS: ENOXAPARIN 30MG/0.3ML SYR SUBCUT SCH ×2 (12:02→23:32)
[2020-01-31] MEDS: METOPROLOL TARTRATE 25MG TABLET PO SCH ×2 (12:03→23:31)
[2020-01-31] MEDS ORDERED: DEXTROSE 50% WATER 50ML SYRINGE IV PRN (13:30)
[2020-01-31] MEDS: CHLORDIAZEPOXIDE 25MG CAPSULE PO SCH ×2 (15:50→23:31)
[2020-01-31] MEDS: MORPHINE SULFATE 2 MG/ML CPJ (NOT FOR IM USE) IV PRN (15:51)
[2020-01-31 16:00] VITALS: BP 155/100
[2020-01-31] MEDS: BLOOD SUGAR DIAGNOSTIC STRIP TEST SCH ×2 (17:54→23:42)
[2020-01-31] MEDS: METFORMIN HCL 500MG TABLET PO SCH (18:03)
[2020-01-31] MEDS: APIXABAN 5 MG TABLET PO SCH (18:03)
[2020-01-31] MEDS: TOPIRAMATE 100MG TABLET PO SCH (18:03)
[2020-01-31] MEDS: INSULIN LISPRO 100 UNITS/ML SUBCUT SCH ×2 (18:05→23:41)
[2020-01-31] MEDS ORDERED: ATORVASTATIN CALCIUM 40MG TABLET PO SCH (21:00)
[2020-01-31] MEDS: ATORVASTATIN CALCIUM 20MG TABLET PO SCH (23:30)
[2020-02-01] VITALS: BP 130/77
[2020-02-01 04:00] VITALS: BP 126/76
[2020-02-01] MEDS: CHLORDIAZEPOXIDE 25MG CAPSULE PO SCH ×3 (05:28→21:57)
[2020-02-01] MEDS: MORPHINE SULFATE 2 MG/ML CPJ (NOT FOR IM USE) IV PRN ×2 (05:29→11:26)
[2020-02-01] MEDS: BLOOD SUGAR DIAGNOSTIC STRIP TEST SCH ×4 (06:14→21:58)
[2020-02-01] MEDS: INSULIN LISPRO 100 UNITS/ML SUBCUT SCH ×4 (06:14→21:52)
[2020-02-01 06:29] LABS: CHLORIDE 111 mEq/L (98-107); EOSINOPHILS % 1.6 % (0.0-5.0); HEMATOCRIT. 39.3 % (42.0-52.0); HEMOGLOBIN. 12.9 g/dL (14.0-18.0); LYMPHOCYTES % 39.5 % (20.0-50.0); MEAN CORPUSCULAR VOLUME 88.2 fL (80.0-94.0); MEAN PLATELET VOLUME 10.9 fl (7.4-10.4); MONOCYTES % 9.2 % (2.0-8.0); NEUTROPHILS % 48.7 % (40.0-76.0); PLATELET 162 x1000/uL (130-400); RED BLOOD CELL COUNT 4.46 mill/uL (4.7-6.1)
[2020-02-01 06:42] LABS: HDL CHOLESTEROL 20 mg/dL (40-59)
[2020-02-01 06:44] LABS: LDL CHOLESTEROL 31 mg/dL (5-100)
[2020-02-01 07:32] VITALS: BP 144/86
[2020-02-01] MEDS: ASPIRIN 81MG EC TABLET PO SCH (08:33)
[2020-02-01] MEDS: TOPIRAMATE 100MG TABLET PO SCH ×2 (08:33→17:11)
[2020-02-01] MEDS: FLUOXETINE HCL 10 MG CAPSULE PO SCH (08:33)
[2020-02-01] MEDS: AZITHROMYCIN 250 MG TABLET PO SCH (08:33)
[2020-02-01] MEDS: AMLODIPINE 2.5MG TABLET PO SCH ×2 (08:34→21:58)
[2020-02-01] MEDS: METFORMIN HCL 500MG TABLET PO SCH ×2 (08:34→17:12)
[2020-02-01] MEDS: APIXABAN 5 MG TABLET PO SCH ×2 (08:34→17:12)
[2020-02-01] MEDS: METOPROLOL TARTRATE 25MG TABLET PO SCH ×2 (08:34→21:57)
[2020-02-01] MEDS ORDERED: DIGOXIN 250MCG TABLET PO SCH (09:00)
[2020-02-01] MEDS ORDERED: AZITHROMYCIN 500 MG in DEXT 5% WATER 250 ML IV SCH (09:30)
[2020-02-01] MEDS: INSULIN GLARGINE UD 100 UNITS/ML SYR SUBCUT SCH (11:10)
[2020-02-01 11:52] VITALS: BP 162/94
[2020-02-01 15:34] VITALS: BP 138/86
[2020-02-01 20:00] VITALS: BP 123/82
[2020-02-01] MEDS: ATORVASTATIN CALCIUM 20MG TABLET PO SCH (21:57)
[2020-02-02] VITALS: BP 137/89
[2020-02-02 04:00] VITALS: BP 133/88
[2020-02-02] MEDS: CHLORDIAZEPOXIDE 25MG CAPSULE PO SCH ×2 (06:00→13:08)
[2020-02-02] MEDS: BLOOD SUGAR DIAGNOSTIC STRIP TEST SCH ×3 (06:16→17:09)
[2020-02-02 06:19] LABS: CHLORIDE 110 mEq/L (98-107)
[2020-02-02 06:33] LABS: BASOPHILS % 1.1 % (0.0-2.0); EOSINOPHILS % 1.7 % (0.0-5.0); HEMATOCRIT. 36.3 % (42.0-52.0); HEMOGLOBIN. 12.1 g/dL (14.0-18.0); LYMPHOCYTES % 37.2 % (20.0-50.0); MEAN CORPUSCULAR VOLUME 86.8 fL (80.0-94.0); MEAN PLATELET VOLUME 10.6 fl (7.4-10.4); MONOCYTES % 9.9 % (2.0-8.0); NEUTROPHILS % 50.1 % (40.0-76.0); PLATELET 170 x1000/uL (130-400); RED BLOOD CELL COUNT 4.18 mill/uL (4.7-6.1); RED CELL DISTRIBUTION WIDTH 14.7 % (11.6-14.6)
[2020-02-02] MEDS: INSULIN LISPRO 100 UNITS/ML SUBCUT SCH ×3 (06:45→17:09)
[2020-02-02] MEDS: METFORMIN HCL 500MG TABLET PO SCH ×2 (06:46→17:07)
[2020-02-02 08:00] VITALS: BP 103/71
[2020-02-02] MEDS: ASPIRIN 81MG EC TABLET PO SCH (08:34)
[2020-02-02] MEDS: FLUOXETINE HCL 10 MG CAPSULE PO SCH (08:34)
[2020-02-02] MEDS: TOPIRAMATE 100MG TABLET PO SCH ×2 (08:34→17:07)
[2020-02-02] MEDS: APIXABAN 5 MG TABLET PO SCH ×2 (08:34→17:07)
[2020-02-02] MEDS: METOPROLOL TARTRATE 25MG TABLET PO SCH (08:35)
[2020-02-02] MEDS: AMLODIPINE 2.5MG TABLET PO SCH (08:35)
[2020-02-02] MEDS: MORPHINE SULFATE 2 MG/ML CPJ (NOT FOR IM USE) IV PRN (09:25)
[2020-02-02] MEDS: INSULIN GLARGINE UD 100 UNITS/ML SYR SUBCUT SCH (09:27)
[2020-02-02 11:51] VITALS: BP 125/81
[2020-02-02] MEDS: AZITHROMYCIN 250 MG TABLET PO SCH (12:07)
[2020-02-02 16:00] VITALS: BP 130/86
[2020-02-02] MEDS ORDERED: DIGOXIN 250MCG TABLET PO SCH (18:00)
[2020-02-02] MEDS ORDERED: ASPI-1158 PO (18:17)
[2020-02-02] MEDS ORDERED: INSU300I SQ (18:17)
[2020-02-02 19:55] VITALS: BP 146/90
== END 2020-02-02 20:25 | disposition home or self-care (01) | DRG 205 ==
LOC: ER 05:25 → 8WST 07:31 → EDBEDREQTM 07:37 → EDBEDREQ 07:37 → ENRESERV 08:50
PROVIDERS: ADMIT Internal Medicine; ATTEND Internal Medicine
DX: M94.0 Chondrocostal junction syndrome [Tietze] (principal); J18.9 Pneumonia, unspecified organism; J44.0 Chronic obstructive pulmonary disease with (acute) lower respiratory infection; E11.65 Type 2 diabetes mellitus with hyperglycemia; E78.5 Hyperlipidemia, unspecified; I11.0 Hypertensive heart disease with heart failure; I48.91 Unspecified atrial fibrillation; I50.9 Heart failure, unspecified; Z79.4 Long term (current) use of insulin; Z82.49 Family history of ischemic heart disease and other diseases of the circulatory system; Z86.19 Personal history of other infectious and parasitic diseases; G43.909 Migraine, unspecified, not intractable, without status migrainosus; R74.0 Nonspecific elevation of levels of transaminase and lactic acid dehydrogenase [LDH]; Z79.899 Other long term (current) drug therapy; Z79.1 Long term (current) use of non-steroidal anti-inflammatories (NSAID)
CPT/HCPCS: 36415; 71045; 80048; 80053; 80061; 80305; 80320; 82962; 83605; 83735; 83880; 84100; 84443; 84484; 85025; 93005; 93306; 93970; 99285; J0456; J0696; J1650; J1815; J2270; J3411; J3490; J7030; J7060; G0480

== ENCOUNTER 2020-04-11 19:44 | Inpatient (IN) | payer MEDICARE, OTHER ==
[~2020-04-11] VITALS: Ht 185.4 cm; Wt 111.8 kg
[~2020-04-11 19:44] MED LIST changes: +ASPI-1158 PO; -DEX2 PO; -DEXA2TAB MT; -DILT120C88 PO
[2020-04-11] MEDS ORDERED: ASPIRIN 325MG EC TABLET PO ONE (20:15)
[2020-04-11 21:46] LABS: CHLORIDE 109 mEq/L (98-107)
[2020-04-11 21:49] LABS: EOSINOPHILS % 1.2 % (0.0-5.0); HEMATOCRIT. 39.3 % (42.0-52.0); HEMOGLOBIN. 13.3 g/dL (14.0-18.0); LYMPHOCYTES % 42.8 % (20.0-50.0); MEAN CORPUSCULAR HEMOGLOBIN 29.7 pg (28.0-32.0); MEAN CORPUSCULAR VOLUME 87.8 fL (80.0-94.0); MONOCYTES % 7.9 % (2.0-8.0); NEUTROPHILS % 47.1 % (40.0-76.0); RED BLOOD CELL COUNT 4.48 mill/uL (4.7-6.1); RED CELL DISTRIBUTION WIDTH 13.8 % (11.6-14.6)
[2020-04-12] VITALS (8 sets, daily range): BP systolic 139–168; BP diastolic 79–104
[2020-04-12] MEDS ORDERED: MORPHINE SULFATE 2 MG/ML CPJ (NOT FOR IM USE) IV PRN (03:00)
[2020-04-12] MEDS ORDERED: DEXTROSE 50% WATER 50ML SYRINGE IV PRN (03:00)
[2020-04-12] MEDS: NITROGLYCERIN 0.4MG TABLET SL SL PRN ×3 (03:18→16:29)
[2020-04-12] MEDS: BLOOD SUGAR DIAGNOSTIC STRIP TEST SCH ×4 (06:48→20:31)
[2020-04-12] MEDS: INSULIN LISPRO 100 UNITS/ML SUBCUT SCH ×4 (08:01→20:32)
[2020-04-12] MEDS: TOPIRAMATE 100MG TABLET PO SCH ×2 (08:05→16:32)
[2020-04-12] MEDS: METFORMIN HCL 500MG TABLET PO SCH ×2 (08:05→16:32)
[2020-04-12] MEDS: METOPROLOL TARTRATE 50MG TABLET PO SCH ×2 (08:06→20:31)
[2020-04-12] MEDS ORDERED: ASPIRIN 325MG EC TABLET PO SCH (09:00)
[2020-04-12 09:05] LABS: BASOPHILS % 1.1 % (0.0-2.0); HEMATOCRIT. 37.7 % (42.0-52.0); HEMOGLOBIN. 12.6 g/dL (14.0-18.0); LYMPHOCYTES % 48.6 % (20.0-50.0); MEAN CORPUSCULAR HEMOGLOBIN 29.3 pg (28.0-32.0); MEAN CORPUSCULAR VOLUME 87.8 fL (80.0-94.0); MEAN PLATELET VOLUME 11.2 fl (7.4-10.4); MONOCYTES % 7.9 % (2.0-8.0); NEUTROPHILS % 40.4 % (40.0-76.0); PLATELET 118 x1000/uL (130-400); RED CELL DISTRIBUTION WIDTH 13.8 % (11.6-14.6)
[2020-04-12] MEDS: ENOXAPARIN 30MG/0.3ML SYR SUBCUT SCH ×2 (09:49→20:31)
[2020-04-12] MEDS ORDERED: AMLODIPINE 10MG TABLET PO SCH (10:00)
[2020-04-12 10:12] LABS: CHLORIDE 106 mEq/L (98-107)
[2020-04-12] MEDS ORDERED: INSULIN GLARGINE UD 100 UNITS/ML SYR SUBCUT SCH (11:00)
[2020-04-12] MEDS ORDERED: CLONIDINE 0.1MG TABLET PO PRN (11:15)
[2020-04-12] MEDS ORDERED: LOSARTAN POTASSIUM 100 MG TABLET PO SCH (14:15)
[2020-04-12 19:17] LABS: CLARITY URINE CLEAR (CLEAR); COLOR URINE YELLOW (YELLOW); KETONES URINE NEGATIVE (NEGATIVE); LEUKOCYTE ESTERASE URINE NEGATIVE (NEGATIVE); NITRITE URINE NEGATIVE (NEGATIVE); OCCULT BLOOD URINE NEGATIVE (NEGATIVE); PH URINE 7.5 (4.5-8.0); PROTEIN URINE 2+ (NEGATIVE); SPECIFIC GRAVITY URINE 1.023 (1.005-1.030)
[2020-04-12 19:28] LABS: *AMPHETAMINES SCREEN URINE NEGATIVE (NEGATIVE); *BARBITURATES SCREEN URINE NEGATIVE (NEGATIVE); *BENZODIAZEPINES SCREEN URINE NEGATIVE (NEGATIVE); *COCAINE SCREEN URINE NEGATIVE (NEGATIVE); METHADONE URINE SCREEN NEGATIVE (NEGATIVE); OPIATES URINE SCREEN NEGATIVE (NEGATIVE); PHENCYCLIDINE URINE SCREEN NEGATIVE (NEGATIVE)
[2020-04-12 19:29] LABS: CANNABINOID URINE SCREEN NEGATIVE (NEGATIVE)
[2020-04-12] MEDS ORDERED: ATORVASTATIN CALCIUM 40MG TABLET PO SCH (21:00)
== END 2020-04-12 20:50 | disposition left against medical advice (07) | DRG 880 ==
LOC: ER 19:44 → 3WST 23:25 → ENRESERV 04-12 00:02
PROVIDERS: ADMIT Internal Medicine; ATTEND Internal Medicine
DX: F41.9 Anxiety disorder, unspecified (principal); E78.00 Pure hypercholesterolemia, unspecified; E78.5 Hyperlipidemia, unspecified; I11.0 Hypertensive heart disease with heart failure; I48.91 Unspecified atrial fibrillation; I50.9 Heart failure, unspecified; J44.9 Chronic obstructive pulmonary disease, unspecified; Z82.49 Family history of ischemic heart disease and other diseases of the circulatory system; Z79.82 Long term (current) use of aspirin; Z79.84 Long term (current) use of oral hypoglycemic drugs; Z79.899 Other long term (current) drug therapy; E11.65 Type 2 diabetes mellitus with hyperglycemia
CPT/HCPCS: 36415; 71045; 80048; 80053; 80305; 81003; 82962; 83880; 84484; 85025; 93005; 99285; J1650; J1815; J2270

== ENCOUNTER 2020-06-01 06:41 | Inpatient (IN) | payer MEDICARE, OTHER ==
[~2020-06-01] VITALS: Ht 185.4 cm; Wt 104.4 kg
[~2020-06-01 06:41] MED LIST changes: -ASPI-1158 PO; +ASPI-1406 PO; -FLUO10CA26 PO; +FLUO10CA28 PO; -HYDR-3280 MT; +HYDR-4350 MT
[2020-06-01] MEDS ORDERED: MORPHINE SULFATE 4 MG/ML CPJ (NOT FOR IM USE) IV STA (07:22)
[2020-06-01 07:57] LABS: EOSINOPHILS % 1.1 % (0.0-5.0); HEMATOCRIT. 44.1 % (42.0-52.0); HEMOGLOBIN. 14.4 g/dL (14.0-18.0); LYMPHOCYTES % 46.1 % (20.0-50.0); MEAN CORPUSCULAR HEMOGLOBIN 28.6 pg (28.0-32.0); MEAN CORPUSCULAR VOLUME 87.4 fL (80.0-94.0); MONOCYTES % 7.7 % (2.0-8.0); NEUTROPHILS % 44.1 % (40.0-76.0); PLATELET 145 x1000/uL (130-400); RED BLOOD CELL COUNT 5.04 mill/uL (4.7-6.1); RED CELL DISTRIBUTION WIDTH 13.9 % (11.6-14.6)
[2020-06-01 08:09] LABS: CHLORIDE 108 mEq/L (98-107)
[2020-06-01] MEDS ORDERED: ASPIRIN 325MG EC TABLET PO ONE (09:15)
[2020-06-01] MEDS ORDERED: DIPHENHYDRAMINE 50MG/ML VIAL IV PRN (10:45)
[2020-06-01] MEDS ORDERED: IPRATROPIUM/ALBUTEROL 0.5-3(2.5)MG/3ML NEB HHN PRN (10:45)
[2020-06-01] MEDS ORDERED: ACETAMINOPHEN 325MG TABLET PO PRN (10:45)
[2020-06-01] MEDS ORDERED: CLONIDINE 0.1MG TABLET PO PRN (10:45)
[2020-06-01] MEDS ORDERED: ONDANSETRON HCL 4MG/2ML INJ IV PRN (10:45)
[2020-06-01] MEDS ORDERED: DEXTROSE 50% WATER 50ML SYRINGE IV PRN (11:00)
[2020-06-01] MEDS ORDERED: ENOXAPARIN 30MG/0.3ML SYR SUBCUT SCH (11:00)
[2020-06-01] MEDS: INSULIN LISPRO 100 UNITS/ML SUBCUT SCH ×3 (12:38→20:55)
[2020-06-01] MEDS: BLOOD SUGAR DIAGNOSTIC STRIP TEST SCH ×3 (12:41→20:38)
[2020-06-01 12:42] VITALS: BP 148/96
[2020-06-01] MEDS ORDERED: METOPROLOL TARTRATE 25MG TABLET PO SCH (13:00)
[2020-06-01] MEDS ORDERED: AMLODIPINE 5MG TABLET PO SCH (13:00)
[2020-06-01 14:00] VITALS: BP 138/95
[2020-06-01 16:00] VITALS: BP 136/92
[2020-06-01] MEDS: ISOSORBIDE MONONITRATE 60MG TABLET SR 24HR PO SCH (16:40)
[2020-06-01] MEDS: DIGOXIN 125MCG TABLET PO SCH (17:37)
[2020-06-01] MEDS: METFORMIN HCL 500MG TABLET PO SCH (17:37)
[2020-06-01] MEDS: APIXABAN 5 MG TABLET PO SCH (17:37)
[2020-06-01 18:00] VITALS: BP 129/89
[2020-06-01 20:00] VITALS: BP 121/87
[2020-06-01] MEDS: METOPROLOL TARTRATE 50MG TABLET PO SCH (20:55)
[2020-06-01] MEDS: ATORVASTATIN CALCIUM 20MG TABLET PO SCH (20:55)
[2020-06-01] MEDS: LISINOPRIL 10MG TABLET PO SCH (21:00)
[2020-06-01] MEDS: MORPHINE SULFATE 2 MG/ML CPJ (NOT FOR IM USE) IV PRN (21:08)
[2020-06-01 22:00] VITALS: BP 115/58
[2020-06-01] MEDS: INSULIN GLARGINE UD 100 UNITS/ML SYR SUBCUT SCH (22:43)
[2020-06-02] VITALS (9 sets, daily range): BP systolic 95–138; BP diastolic 49–93
[2020-06-02] MEDS: BLOOD SUGAR DIAGNOSTIC STRIP TEST SCH ×4 (06:19→20:40)
[2020-06-02 07:54] LABS: CHLORIDE 108 mEq/L (98-107)
[2020-06-02 07:56] LABS: BASOPHILS % 0.7 % (0.0-2.0); EOSINOPHILS % 1.8 % (0.0-5.0); HEMATOCRIT. 39.8 % (42.0-52.0); LYMPHOCYTES % 41.5 % (20.0-50.0); MEAN CORPUSCULAR HEMOGLOBIN 28.6 pg (28.0-32.0); MEAN CORPUSCULAR VOLUME 87.2 fL (80.0-94.0); MONOCYTES % 8.3 % (2.0-8.0); NEUTROPHILS % 47.7 % (40.0-76.0); PLATELET 123 x1000/uL (130-400); RED BLOOD CELL COUNT 4.56 mill/uL (4.7-6.1); RED CELL DISTRIBUTION WIDTH 14.2 % (11.6-14.6)
[2020-06-02 08:07] LABS: LDL CHOLESTEROL 47 mg/dL (5-100)
[2020-06-02 08:09] LABS: HDL CHOLESTEROL 26 mg/dL (40-59)
[2020-06-02] MEDS: METFORMIN HCL 500MG TABLET PO SCH ×2 (08:10→18:25)
[2020-06-02] MEDS: INSULIN LISPRO 100 UNITS/ML SUBCUT SCH ×4 (08:11→20:41)
[2020-06-02] MEDS: ASPIRIN 81MG EC TABLET PO SCH (08:16)
[2020-06-02] MEDS: ISOSORBIDE MONONITRATE 60MG TABLET SR 24HR PO SCH (08:16)
[2020-06-02] MEDS: APIXABAN 5 MG TABLET PO SCH ×2 (08:16→18:25)
[2020-06-02] MEDS: METOPROLOL TARTRATE 50MG TABLET PO SCH ×2 (08:16→21:03)
[2020-06-02] MEDS: LISINOPRIL 10MG TABLET PO SCH ×2 (08:16→21:02)
[2020-06-02] MEDS: INSULIN GLARGINE UD 100 UNITS/ML SYR SUBCUT SCH ×2 (11:52→22:20)
[2020-06-02] MEDS: DIGOXIN 125MCG TABLET PO SCH (18:25)
[2020-06-02] MEDS: MORPHINE SULFATE 2 MG/ML CPJ (NOT FOR IM USE) IV PRN (19:55)
[2020-06-02] MEDS: ATORVASTATIN CALCIUM 20MG TABLET PO SCH (21:01)
[2020-06-03] VITALS: BP 131/77
[2020-06-03 04:00] VITALS: BP 129/91
[2020-06-03] MEDS: BLOOD SUGAR DIAGNOSTIC STRIP TEST SCH ×2 (06:39→12:40)
[2020-06-03] MEDS: INSULIN LISPRO 100 UNITS/ML SUBCUT SCH ×2 (06:40→12:20)
[2020-06-03 07:35] LABS: HEMATOCRIT 39.4 % (42.0-52.0); HEMOGLOBIN 12.9 g/dL (14.0-18.0); MEAN CORPUSCULAR HEMOGLOBIN 28.3 pg (28.0-32.0); MEAN CORPUSCULAR VOLUME 86.8 fL (80.0-94.0); PLATELET 131 x1000/uL (130-400); RED BLOOD CELL COUNT 4.54 mill/uL (4.7-6.1)
[2020-06-03 08:00] VITALS: BP 158/102
[2020-06-03 08:01] LABS: CHLORIDE 109 mEq/L (98-107)
[2020-06-03 08:08] LABS: PHOSPHORUS 2.8 mg/dL (2.5-4.9)
[2020-06-03] MEDS: ASPIRIN 81MG EC TABLET PO SCH (08:34)
[2020-06-03] MEDS: APIXABAN 5 MG TABLET PO SCH (08:34)
[2020-06-03] MEDS: METFORMIN HCL 500MG TABLET PO SCH (08:34)
[2020-06-03] MEDS: ISOSORBIDE MONONITRATE 60MG TABLET SR 24HR PO SCH (08:35)
[2020-06-03] MEDS: LISINOPRIL 10MG TABLET PO SCH (08:35)
[2020-06-03] MEDS: METOPROLOL TARTRATE 50MG TABLET PO SCH (08:35)
[2020-06-03 12:00] VITALS: BP 144/78
[2020-06-03] MEDS ORDERED: LISI10TA5 PO (12:33)
[2020-06-03] MEDS ORDERED: ISOS60TA4 PO (12:33)
[2020-06-03] MEDS ORDERED: METO-539 PO (12:33)
[2020-06-03] MEDS: INSULIN GLARGINE UD 100 UNITS/ML SYR SUBCUT SCH (12:39)
[2020-06-03] MEDS: MORPHINE SULFATE 2 MG/ML CPJ (NOT FOR IM USE) IV PRN (12:39)
[2020-06-03 15:03] VITALS: BP 144/75
== END 2020-06-03 16:20 | disposition home or self-care (01) | DRG 869 ==
LOC: ER 06:41 → 3WST 09:11 → EDBEDREQTM 09:44 → EDBEDREQ 09:44 → ENRESERV 11:13
PROVIDERS: ADMIT Internal Medicine; ATTEND Internal Medicine
DX: B94.8 Sequelae of other specified infectious and parasitic diseases (principal); I20.9 Angina pectoris, unspecified; R07.89 Other chest pain; I11.0 Hypertensive heart disease with heart failure; I48.91 Unspecified atrial fibrillation; I50.9 Heart failure, unspecified; E11.9 Type 2 diabetes mellitus without complications; Z82.49 Family history of ischemic heart disease and other diseases of the circulatory system; Z90.49 Acquired absence of other specified parts of digestive tract; Z79.01 Long term (current) use of anticoagulants; Z79.4 Long term (current) use of insulin; Z79.51 Long term (current) use of inhaled steroids; Z79.899 Other long term (current) drug therapy; Z20.822 Contact with and (suspected) exposure to COVID-19
CPT/HCPCS: 36415; 71045; 80048; 80053; 80061; 82962; 83036; 83735; 83880; 84100; 84443; 84484; 85025; 85027; 85379; 87426; 93005; 93306; 93970; 99285; J1650; J1815; J2270

== ENCOUNTER 2020-07-11 00:38 | Inpatient (IN) | payer MEDICARE, OTHER ==
[~2020-07-11] VITALS: Ht 185.4 cm; Wt 104.3 kg
[~2020-07-11 00:38] MED LIST changes: -AMLO5TAB88 MT; +ISOS60TA76 PO; +LISI10TA26 PO; +METO-539 PO; -METO25TA6 MT
[2020-07-11] MEDS ORDERED: ONDANSETRON HCL 4MG/2ML INJ IV STA (01:02)
[2020-07-11] MEDS ORDERED: MORPHINE SULFATE 4 MG/ML CPJ (NOT FOR IM USE) IV STA (01:02)
[2020-07-11 01:13] LABS: BASOPHILS % 0.7 % (0.0-2.0); EOSINOPHILS % 1.7 % (0.0-5.0); HEMATOCRIT. 44.9 % (42.0-52.0); HEMOGLOBIN. 14.7 g/dL (14.0-18.0); LYMPHOCYTES % 44.6 % (20.0-50.0); MEAN CORPUSCULAR HEMOGLOBIN 28.3 pg (28.0-32.0); MEAN CORPUSCULAR VOLUME 86.4 fL (80.0-94.0); MEAN PLATELET VOLUME 10.8 fl (7.4-10.4); MONOCYTES % 7.6 % (2.0-8.0); NEUTROPHILS % 45.4 % (40.0-76.0); PLATELET 142 x1000/uL (130-400); RED CELL DISTRIBUTION WIDTH 15.1 % (11.6-14.6)
[2020-07-11 01:23] LABS: CHLORIDE 104 mEq/L (98-107)
[2020-07-11 01:29] LABS: BETA HYDROXYBUTYRATE 0.2 mMol/L (0.0-0.3)
[2020-07-11] MEDS ORDERED: HYDRALAZINE 20MG/ML VIAL IV ONE (02:00)
[2020-07-11] MEDS ORDERED: NITROGLYCERIN 0.4MG TABLET SL SL PRN (03:30)
[2020-07-11] MEDS ORDERED: LORAZEPAM 2MG/ML CPJ IV PRN (03:30)
[2020-07-11] MEDS ORDERED: MORPHINE SULFATE 2 MG/ML CPJ (NOT FOR IM USE) IV PRN (03:30)
[2020-07-11] MEDS ORDERED: TRAMADOL 50MG TABLET PO PRN (09:30)
[2020-07-11] MEDS ORDERED: ONDANSETRON HCL 4MG/2ML INJ IV PRN (09:30)
[2020-07-11] MEDS ORDERED: DEXTROSE 50% WATER 50ML SYRINGE IV PRN (09:30)
[2020-07-11] MEDS ORDERED: INSULIN GLARGINE UD 100 UNITS/ML SYR SUBCUT NR (10:00)
[2020-07-11 10:10] LABS: PROTHROMBIN TIME 10.7 sec (9.6-11.0)
[2020-07-11] MEDS ORDERED: GABA-533 PO (11:57)
[2020-07-11] MEDS ORDERED: INSU100I24 SQ (11:57)
[2020-07-11] MEDS ORDERED: FURO40TA5 PO (11:57)
[2020-07-11] MEDS ORDERED: MIRT15TA6 PO (11:57)
[2020-07-11] MEDS ORDERED: DICL100G31 TP (11:57)
[2020-07-11] MEDS ORDERED: INSNOV SUBCUT (11:57)
[2020-07-11] MEDS ORDERED: TIZA4CAP6 PO (11:57)
[2020-07-11] MEDS ORDERED: NITR2.5C16 PO (11:57)
[2020-07-11 12:00] VITALS: BP 168/107
[2020-07-11] MEDS: BLOOD SUGAR DIAGNOSTIC STRIP TEST SCH ×3 (12:53→21:00)
[2020-07-11] MEDS: METOPROLOL TARTRATE 50MG TABLET PO SCH ×2 (13:07→23:54)
[2020-07-11] MEDS: LOSARTAN POTASSIUM 100 MG TABLET PO SCH (13:07)
[2020-07-11] MEDS: ENOXAPARIN 100MG/ML SYR SUBCUT SCH ×2 (13:08→23:53)
[2020-07-11] MEDS: INSULIN LISPRO 100 UNITS/ML SUBCUT SCH ×3 (13:12→23:55)
[2020-07-11] MEDS: AMLODIPINE 10MG TABLET PO SCH (15:14)
[2020-07-11 16:00] VITALS: BP 142/95
[2020-07-11] MEDS: HYDROCODONE/ACETAMINOPHEN 5/325MG TABLET PO PRN (18:30)
[2020-07-11 20:00] VITALS: BP 155/94
[2020-07-11] MEDS: MORPHINE SULFATE 2 MG/ML CPJ (NOT FOR IM USE) IV PRN (20:21)
[2020-07-11] MEDS ORDERED: LORAZEPAM 1MG TABLET PO PRN (20:30)
[2020-07-11] MEDS ORDERED: INSULIN GLARGINE UD 100 UNITS/ML SYR SUBCUT SCH (22:00)
[2020-07-12 00:10] VITALS: BP 158/95
[2020-07-12 04:00] VITALS: BP 151/93
[2020-07-12] MEDS: MORPHINE SULFATE 2 MG/ML CPJ (NOT FOR IM USE) IV PRN ×2 (06:18→10:33)
[2020-07-12] MEDS: BLOOD SUGAR DIAGNOSTIC STRIP TEST SCH ×3 (06:19→18:17)
[2020-07-12 08:00] VITALS: BP 160/94
[2020-07-12] MEDS ORDERED: INSULIN GLARGINE UD 100 UNITS/ML SYR SUBCUT SCH ×2 (10:00→22:00)
[2020-07-12] MEDS: METOPROLOL TARTRATE 50MG TABLET PO SCH (10:47)
[2020-07-12] MEDS: LOSARTAN POTASSIUM 100 MG TABLET PO SCH (10:47)
[2020-07-12] MEDS: ENOXAPARIN 100MG/ML SYR SUBCUT SCH (10:48)
[2020-07-12] MEDS: AMLODIPINE 10MG TABLET PO SCH (10:48)
[2020-07-12 12:00] VITALS: BP 158/92
[2020-07-12] MEDS ORDERED: HYDRALAZINE HCL 50MG TABLET PO SCH (12:00)
[2020-07-12] MEDS: INSULIN LISPRO 100 UNITS/ML SUBCUT SCH ×3 (13:46→17:50)
[2020-07-12] MEDS ORDERED: HYDR-4135 PO (14:52)
[2020-07-12] MEDS ORDERED: METO100T16 PO (14:52)
[2020-07-12] MEDS ORDERED: LOSA100T3 PO (14:52)
[2020-07-12 16:00] VITALS: BP 152/91
[2020-07-12] MEDS: HYDROCODONE/ACETAMINOPHEN 5/325MG TABLET PO PRN (18:30)
[2020-07-12 18:55] VITALS: BP 152/91
[2020-07-12] MEDS ORDERED: METOPROLOL TARTRATE 100MG TABLET PO SCH (21:00)
== END 2020-07-12 19:15 | disposition home or self-care (01) | DRG 206 ==
LOC: ER 00:38 → 7WST 02:10 → ENRESERV 09:44 → 6WST 07-12 00:26
PROVIDERS: ADMIT Internal Medicine; ATTEND Internal Medicine
DX: M94.0 Chondrocostal junction syndrome [Tietze] (principal); I48.91 Unspecified atrial fibrillation; Z86.16 Personal history of COVID-19; E87.6 Hypokalemia; E11.9 Type 2 diabetes mellitus without complications; I11.0 Hypertensive heart disease with heart failure; I50.9 Heart failure, unspecified; E66.9 Obesity, unspecified; Z20.822 Contact with and (suspected) exposure to COVID-19; Z79.84 Long term (current) use of oral hypoglycemic drugs; Z79.891 Long term (current) use of opiate analgesic; Z79.899 Other long term (current) drug therapy; Z82.49 Family history of ischemic heart disease and other diseases of the circulatory system; Z90.49 Acquired absence of other specified parts of digestive tract; Z86.73 Personal history of transient ischemic attack (TIA), and cerebral infarction without residual deficits; Z68.30 Body mass index [BMI] 30.0-30.9, adult; Z91.19 Patient's noncompliance with other medical treatment and regimen; I20.8 Other forms of angina pectoris
CPT/HCPCS: 36415; 71045; 80053; 82010; 82962; 83880; 84484; 85025; 85379; 93005; 99291; J0360; J1650; J1815; J2060; J2270; J2405; U0003

== ENCOUNTER 2020-08-05 17:28 | Inpatient (IN) | payer MEDICARE, OTHER ==
[~2020-08-05] VITALS: Ht 185.4 cm; Wt 110.4 kg
[~2020-08-05 17:28] MED LIST changes: +DICL100G31 TP; +FURO40TA5 PO; +GABA-533 PO; +HYDR-4135 PO; +INSNOV SUBCUT; +INSU100I24 SQ; -LISI10TA26 PO; +LOSA100T3 PO; -METO-539 PO; +METO100T16 PO; +MIRT15TA6 PO; +NITR2.5C16 PO; +TIZA4CAP6 PO
[2020-08-05] MEDS ORDERED: MORPHINE SULFATE 4 MG/ML CPJ (NOT FOR IM USE) IV STA (17:56)
[2020-08-05 18:27] LABS: BASOPHILS % 0.7 % (0.0-2.0); HEMATOCRIT. 43.9 % (42.0-52.0); HEMOGLOBIN. 14.7 g/dL (14.0-18.0); LYMPHOCYTES % 40.5 % (20.0-50.0); MEAN CORPUSCULAR HEMOGLOBIN 29.1 pg (28.0-32.0); MEAN CORPUSCULAR VOLUME 86.8 fL (80.0-94.0); MEAN PLATELET VOLUME 10.6 fl (7.4-10.4); MONOCYTES % 7.7 % (2.0-8.0); NEUTROPHILS % 50.1 % (40.0-76.0); PLATELET 133 x1000/uL (130-400); RED BLOOD CELL COUNT 5.06 mill/uL (4.7-6.1); RED CELL DISTRIBUTION WIDTH 14.7 % (11.6-14.6)
[2020-08-05 18:30] LABS: CHLORIDE 115 mEq/L (98-107)
[2020-08-05] MEDS ORDERED: ASPIRIN 325MG EC TABLET PO ONE (23:00)
[2020-08-06] VITALS: BP 130/76
[2020-08-06] MEDS ORDERED: DEXTROSE 50% WATER 50ML SYRINGE IV PRN (00:45)
[2020-08-06] MEDS ORDERED: ACETAMINOPHEN 325MG TABLET PO PRN (00:45)
[2020-08-06] MEDS: NITROGLYCERIN OINT 1GM/INCH UDPKT TD SCH ×3 (01:09→20:51)
[2020-08-06] MEDS: MORPHINE SULFATE 2 MG/ML CPJ (NOT FOR IM USE) IV PRN ×2 (01:16→04:43)
[2020-08-06 02:40] VITALS: BP 130/76
[2020-08-06 04:00] VITALS: BP 150/84
[2020-08-06] MEDS: BLOOD SUGAR DIAGNOSTIC STRIP TEST SCH ×4 (05:23→20:51)
[2020-08-06] MEDS: INSULIN LISPRO 100 UNITS/ML SUBCUT SCH ×4 (05:24→20:53)
[2020-08-06] MEDS ORDERED: TRAMADOL 50MG TABLET PO PRN (07:45)
[2020-08-06 08:00] VITALS: BP 145/94
[2020-08-06] MEDS: ASPIRIN 81MG TABLET PO SCH (09:52)
[2020-08-06] MEDS: METOPROLOL TARTRATE 50MG TABLET PO SCH ×2 (09:53→20:51)
[2020-08-06] MEDS: HYDROCODONE/ACETAMINOPHEN 10/325MG TABLET PO PRN (09:53)
[2020-08-06] MEDS: INSULIN GLARGINE UD 100 UNITS/ML SYR SUBCUT SCH ×2 (10:00→20:53)
[2020-08-06 12:00] VITALS: BP 141/90
[2020-08-06] MEDS ORDERED: LORAZEPAM 2MG/ML CPJ IV NR (13:00)
[2020-08-06 15:38] LABS: BASOPHILS % 0.6 % (0.0-2.0); EOSINOPHILS % 1.7 % (0.0-5.0); HEMATOCRIT. 42.4 % (42.0-52.0); HEMOGLOBIN. 14.1 g/dL (14.0-18.0); LYMPHOCYTES % 38.5 % (20.0-50.0); MEAN CORPUSCULAR HEMOGLOBIN 28.7 pg (28.0-32.0); MEAN CORPUSCULAR VOLUME 86.2 fL (80.0-94.0); MEAN PLATELET VOLUME 11.3 fl (7.4-10.4); MONOCYTES % 8.1 % (2.0-8.0); NEUTROPHILS % 51.1 % (40.0-76.0); PLATELET 140 x1000/uL (130-400); RED BLOOD CELL COUNT 4.92 mill/uL (4.7-6.1); RED CELL DISTRIBUTION WIDTH 14.6 % (11.6-14.6)
[2020-08-06 16:00] VITALS: BP 134/91
[2020-08-06 16:07] LABS: CHLORIDE 106 mEq/L (98-107)
[2020-08-06] MEDS: AMLODIPINE 2.5MG TABLET PO SCH (20:50)
[2020-08-06] MEDS ORDERED: ATORVASTATIN CALCIUM 40MG TABLET PO SCH (21:00)
[2020-08-07] VITALS: BP 140/93
[2020-08-07 04:00] VITALS: BP 139/91
[2020-08-07] MEDS: INSULIN LISPRO 100 UNITS/ML SUBCUT SCH ×3 (05:16→17:40)
[2020-08-07] MEDS: BLOOD SUGAR DIAGNOSTIC STRIP TEST SCH ×3 (05:16→17:10)
[2020-08-07] MEDS: NITROGLYCERIN OINT 1GM/INCH UDPKT TD SCH ×2 (05:23→14:00)
[2020-08-07 08:00] VITALS: BP 135/89
[2020-08-07] MEDS: INSULIN GLARGINE UD 100 UNITS/ML SYR SUBCUT SCH (10:00)
[2020-08-07] MEDS: METOPROLOL TARTRATE 50MG TABLET PO SCH (11:43)
[2020-08-07] MEDS: ASPIRIN 81MG TABLET PO SCH (11:43)
[2020-08-07] MEDS: AMLODIPINE 2.5MG TABLET PO SCH (11:43)
[2020-08-07] MEDS: HYDROCODONE/ACETAMINOPHEN 10/325MG TABLET PO PRN (11:59)
[2020-08-07 12:00] VITALS: BP 140/89
[2020-08-07] MEDS ORDERED: IOHEXOL-300 100 ML BOTTLE ONE (14:58)
[2020-08-07] MEDS ORDERED: IODIXANOL 320MG/ML 200ML BOTTLE ONE (14:59)
[2020-08-07] MEDS ORDERED: LIDOCAINE HCL 1% 20ML VIAL (Pyxis) INJ ONE (14:59)
[2020-08-07] MEDS ORDERED: HEPARIN SODIUM 1,000 UNIT/1ML VIAL IV ONE (15:00)
[2020-08-07] MEDS ORDERED: NITROGLYCERIN 50MCG/ML 10ML VIAL (CATH LAB) IV ONE (15:00)
[2020-08-07] MEDS ORDERED: NICARDIPINE 100MCG/ML 10ML VIAL (CATH LAB) IV ONE (15:00)
[2020-08-07] MEDS ORDERED: MIDAZOLAM HCL 2 MG/2 ML VIAL ONE (15:20)
[2020-08-07] MEDS ORDERED: FENTANYL CITRATE/PF 50MCG/ML 2ML VIAL ONE (15:20)
[2020-08-07 16:00] VITALS: BP 147/97
[2020-08-07] MEDS ORDERED: ASPI-1160 PO (16:25)
== END 2020-08-07 20:32 | disposition home or self-care (01) | DRG 287 ==
LOC: ER 17:28 → 8WST 20:44 → ENRESERV 22:24
PROVIDERS: ADMIT Internal Medicine; ATTEND Internal Medicine
PROC: 4A023N7 Measurement of Cardiac Sampling and Pressure, Left Heart, Percutaneous Approach (ICD-10-PCS; principal; 2020-08-07)
PROC: B2111ZZ Fluoroscopy of Multiple Coronary Arteries using Low Osmolar Contrast (ICD-10-PCS; 2020-08-07)
PROC: B2151ZZ Fluoroscopy of Left Heart using Low Osmolar Contrast (ICD-10-PCS; 2020-08-07)
DX: I25.119 Atherosclerotic heart disease of native coronary artery with unspecified angina pectoris (principal); E87.8 Other disorders of electrolyte and fluid balance, not elsewhere classified; E11.9 Type 2 diabetes mellitus without complications; E66.9 Obesity, unspecified; I48.91 Unspecified atrial fibrillation; E78.5 Hyperlipidemia, unspecified; Z86.73 Personal history of transient ischemic attack (TIA), and cerebral infarction without residual deficits; I50.9 Heart failure, unspecified; Z82.49 Family history of ischemic heart disease and other diseases of the circulatory system; Z68.32 Body mass index [BMI] 32.0-32.9, adult; F41.9 Anxiety disorder, unspecified; Z20.822 Contact with and (suspected) exposure to COVID-19; I11.0 Hypertensive heart disease with heart failure
CPT/HCPCS: 36415; 71045; 80048; 80053; 82962; 83036; 83880; 84484; 85025; 87426; 93005; 93458; 99285; C1769; C1887; C1893; J1644; J1815; J2060; J2250; J2270; J3010; J3490; Q9967

== ENCOUNTER 2020-11-16 14:07 | Inpatient (IN) | payer MEDICARE, MEDICAID, OTHER ==
[~2020-11-16] VITALS: Ht 185.4 cm; Wt 110.7 kg
[~2020-11-16 14:07] MED LIST changes: +ASPI-1160 PO; +ATOR40TA70 PO; +DILT240T12 PO; +DIPH25CA83 MT; +LISI40TA13 PO; +TOPI100T37 PO
[2020-11-16] MEDS ORDERED: HYDRALAZINE 20MG/ML VIAL IV ONE (14:45)
[2020-11-16] MEDS ORDERED: NITROGLYCERIN 0.4MG TABLET SL SL ONE (14:45)
[2020-11-16] MEDS ORDERED: ASPIRIN 81MG TABLET PO ONE (14:45)
[2020-11-16 15:03] LABS: CHLORIDE 112 mEq/L (98-107)
[2020-11-16 15:35] LABS: EOSINOPHILS % 1.8 % (0.0-5.0); HEMATOCRIT. 42.3 % (42.0-52.0); HEMOGLOBIN. 14.5 g/dL (14.0-18.0); LYMPHOCYTES % 39.1 % (20.0-50.0); MEAN CORPUSCULAR HEMOGLOBIN 29.4 pg (28.0-32.0); MEAN CORPUSCULAR VOLUME 85.7 fL (80.0-94.0); MEAN PLATELET VOLUME 10.5 fl (7.4-10.4); NEUTROPHILS % 51.1 % (40.0-76.0); PLATELET 144 x1000/uL (130-400); RED BLOOD CELL COUNT 4.93 mill/uL (4.7-6.1)
[2020-11-16 21:10] VITALS: BP 149/80
[2020-11-17] VITALS (8 sets, daily range): BP systolic 121–159; BP diastolic 67–98
[2020-11-17] MEDS ORDERED: CLONIDINE 0.1MG TABLET PO PRN (05:45)
[2020-11-17] MEDS: MORPHINE SULFATE 2 MG/ML CPJ (NOT FOR IM USE) IV PRN ×2 (06:44→18:03)
[2020-11-17 08:16] LABS: BASOPHILS % 0.8 % (0.0-2.0); EOSINOPHILS % 2.2 % (0.0-5.0); HEMATOCRIT. 43.8 % (42.0-52.0); HEMOGLOBIN. 14.8 g/dL (14.0-18.0); LYMPHOCYTES % 46.6 % (20.0-50.0); MEAN CORPUSCULAR HEMOGLOBIN 29.1 pg (28.0-32.0); MEAN PLATELET VOLUME 10.3 fl (7.4-10.4); NEUTROPHILS % 41.4 % (40.0-76.0); PLATELET 141 x1000/uL (130-400); RED BLOOD CELL COUNT 5.09 mill/uL (4.7-6.1)
[2020-11-17] MEDS ORDERED: DEXTROSE 50% WATER 50ML SYRINGE IV PRN (08:45)
[2020-11-17] MEDS: ASPIRIN 81MG TABLET PO SCH (09:00)
[2020-11-17] MEDS: TOPIRAMATE 100MG TABLET PO SCH ×2 (09:00→22:00)
[2020-11-17] MEDS: DILTIAZEM HCL 120MG CAPSULE CD 24HR PO SCH (09:00)
[2020-11-17] MEDS: HYDRALAZINE HCL 50MG TABLET PO SCH ×2 (09:00→21:57)
[2020-11-17] MEDS ORDERED: ENOXAPARIN 40MG/0.4ML SYR SUBCUT SCH (09:00)
[2020-11-17] MEDS: LOSARTAN POTASSIUM 100 MG TABLET PO SCH (09:01)
[2020-11-17] MEDS: METOPROLOL TARTRATE 100MG TABLET PO SCH ×2 (09:01→21:58)
[2020-11-17] MEDS: ISOSORBIDE MONONITRATE 60MG TABLET SR 24HR PO SCH (09:02)
[2020-11-17 09:06] LABS: CHLORIDE 114 mEq/L (98-107)
[2020-11-17 09:19] LABS: T4 FREE 1.04 ng/dL (0.76-1.46)
[2020-11-17 09:20] LABS: LDL CHOLESTEROL 56 mg/dL (5-100)
[2020-11-17 09:22] LABS: HDL CHOLESTEROL 27 mg/dL (40-59)
[2020-11-17] MEDS ORDERED: POTASSIUM CHLORIDE 20MEQ TABLET SR PO NR (10:15)
[2020-11-17] MEDS: INSULIN GLARGINE UD 100 UNITS/ML SYR SUBCUT SCH ×2 (10:45→22:04)
[2020-11-17] MEDS: BLOOD SUGAR DIAGNOSTIC STRIP TEST SCH ×3 (12:10→21:00)
[2020-11-17] MEDS: INSULIN LISPRO 100 UNITS/ML SUBCUT SCH ×3 (12:40→22:03)
[2020-11-17 17:11] LABS: CREATINE KINASE MB FRACTION 2.5 ng/mL (0.5-3.6)
[2020-11-17 17:15] LABS: CREATINE KINASE 184 IU/L (39-308)
[2020-11-17] MEDS ORDERED: DIGOXIN 250MCG TABLET PO SCH (18:00)
[2020-11-17] MEDS ORDERED: MIRTAZAPINE 15MG TABLET PO SCH (21:00)
[2020-11-17] MEDS ORDERED: ATORVASTATIN CALCIUM 40MG TABLET PO SCH (21:00)
[2020-11-18] VITALS (7 sets, daily range): BP systolic 111–141; BP diastolic 67–98
[2020-11-18 00:07] LABS: C REACTIVE PROTEIN CARDIAC 4.1 mg/L (0.00-3.00)
[2020-11-18 00:11] LABS: CREATINE KINASE MB FRACTION 2.4 ng/mL (0.5-3.6)
[2020-11-18] MEDS: INSULIN LISPRO 100 UNITS/ML SUBCUT SCH ×2 (06:05→14:26)
[2020-11-18] MEDS: BLOOD SUGAR DIAGNOSTIC STRIP TEST SCH ×2 (06:05→12:10)
[2020-11-18 08:20] LABS: CREATINE KINASE MB FRACTION 2.1 ng/mL (0.5-3.6)
[2020-11-18] MEDS: ALBUTEROL (0.083%) 2.5MG/3ML NEB HHN SCH ×2 (08:56→13:10)
[2020-11-18] MEDS ORDERED: ENOXAPARIN 30MG/0.3ML SYR SUBCUT SCH (09:00)
[2020-11-18] MEDS: ASPIRIN 81MG TABLET PO SCH (09:39)
[2020-11-18] MEDS: TOPIRAMATE 100MG TABLET PO SCH (09:40)
[2020-11-18] MEDS: HYDRALAZINE HCL 50MG TABLET PO SCH (09:40)
[2020-11-18] MEDS: METOPROLOL TARTRATE 100MG TABLET PO SCH (09:40)
[2020-11-18] MEDS: ISOSORBIDE MONONITRATE 60MG TABLET SR 24HR PO SCH (09:41)
[2020-11-18] MEDS: DILTIAZEM HCL 120MG CAPSULE CD 24HR PO SCH (09:41)
[2020-11-18] MEDS: LOSARTAN POTASSIUM 100 MG TABLET PO SCH (09:41)
[2020-11-18] MEDS: INSULIN GLARGINE UD 100 UNITS/ML SYR SUBCUT SCH (09:43)
[2020-11-18] MEDS: MORPHINE SULFATE 2 MG/ML CPJ (NOT FOR IM USE) IV PRN (10:06)
== END 2020-11-18 15:35 | disposition home or self-care (01) | DRG 206 ==
LOC: ER 15:30 → ENRESERV 20:24 → 8WST 21:47
PROVIDERS: ADMIT Family Medicine; ATTEND Family Medicine
DX: M94.0 Chondrocostal junction syndrome [Tietze] (principal); K21.9 Gastro-esophageal reflux disease without esophagitis; E11.9 Type 2 diabetes mellitus without complications; E78.5 Hyperlipidemia, unspecified; I10 Essential (primary) hypertension; I48.91 Unspecified atrial fibrillation; Z86.16 Personal history of COVID-19; R20.0 Anesthesia of skin
CPT/HCPCS: 36415; 71045; 80053; 80061; 82550; 82553; 82652; 82962; 83036; 83880; 84439; 84443; 84484; 85025; 85379; 85651; 86141; 93005; 93306; 93971; 94640; 97162; 99285; J0360; J1650; J1815; J2270

== ENCOUNTER 2021-03-22 12:58 | Emergency (ER) | payer MEDICARE, OTHER ==
[~2021-03-22] VITALS: Ht 182.9 cm; Wt 91.0 kg
[~2021-03-22 12:58] MED LIST changes: +MIRT-89 PO; -MIRT15TA6 PO
[2021-03-22 13:05] VITALS: BP 171/99
== END 2021-03-22 17:38 | disposition left against medical advice (07) ==
LOC: ER 12:58
DX: Z53.21 Procedure and treatment not carried out due to patient leaving prior to being seen by health care provider (principal); R07.9 Chest pain, unspecified; R42 Dizziness and giddiness
CPT/HCPCS: 93005

== ENCOUNTER 2021-05-17 23:49 | Inpatient (IN) | payer MEDICARE, MEDICAID ==
[~2021-05-17] VITALS: Ht 185.4 cm; Wt 109.0 kg
[2021-05-18] MEDS ORDERED: IBUPROFEN 600MG TABLET PO STA (01:07)
[2021-05-18] MEDS ORDERED: CLONIDINE 0.1MG TABLET PO ONE (01:15)
[2021-05-18 01:21] LABS: EOSINOPHILS % 1.1 % (0.0-5.0); HEMATOCRIT. 46.4 % (42.0-52.0); HEMOGLOBIN. 15.4 g/dL (14.0-18.0); LYMPHOCYTES % 34.4 % (20.0-50.0); MEAN CORPUSCULAR HEMOGLOBIN 29.4 pg (28.0-32.0); MONOCYTES % 9.7 % (2.0-8.0); NEUTROPHILS % 53.8 % (40.0-76.0); PLATELET 150 x1000/uL (130-400); RED BLOOD CELL COUNT 5.22 mill/uL (4.7-6.1); RED CELL DISTRIBUTION WIDTH 14.4 % (11.6-14.6)
[2021-05-18 01:27] LABS: CHLORIDE 112 mEq/L (98-107)
[2021-05-18] MEDS ORDERED: AMLODIPINE 10MG TABLET PO SCH (09:45)
[2021-05-18] MEDS ORDERED: ONDANSETRON HCL 4MG/2ML INJ IV PRN (09:45)
[2021-05-18] MEDS ORDERED: KETOROLAC 15MG/ML VIAL IV PRN (09:45)
[2021-05-18] MEDS ORDERED: DEXTROSE 50% WATER 50ML SYRINGE IV PRN (09:45)
[2021-05-18 09:50] LABS: CLARITY URINE CLEAR (CLEAR); COLOR URINE YELLOW (YELLOW); KETONES URINE NEGATIVE (NEGATIVE); LEUKOCYTE ESTERASE URINE NEGATIVE (NEGATIVE); NITRITE URINE NEGATIVE (NEGATIVE); OCCULT BLOOD URINE NEGATIVE (NEGATIVE); PROTEIN URINE 2+ (NEGATIVE); SPECIFIC GRAVITY URINE 1.036 (1.005-1.030); UROBILINOGEN URINE 0.2 E.U./dL (0.2-1.0)
[2021-05-18] MEDS ORDERED: ENOXAPARIN 30MG/0.3ML SYR SUBCUT SCH (10:00)
[2021-05-18] MEDS ORDERED: ASPIRIN 81MG TABLET PO SCH (10:00)
[2021-05-18 10:13] LABS: PHENCYCLIDINE URINE SCREEN NEGATIVE (NEGATIVE)
[2021-05-18 10:14] LABS: *AMPHETAMINES SCREEN URINE NEGATIVE (NEGATIVE); *BARBITURATES SCREEN URINE NEGATIVE (NEGATIVE); *BENZODIAZEPINES SCREEN URINE NEGATIVE (NEGATIVE); *COCAINE SCREEN URINE NEGATIVE (NEGATIVE); CANNABINOID URINE SCREEN NEGATIVE (NEGATIVE); METHADONE URINE SCREEN NEGATIVE (NEGATIVE); OPIATES URINE SCREEN NEGATIVE (NEGATIVE)
[2021-05-18] MEDS ORDERED: BLOOD SUGAR DIAGNOSTIC STRIP TEST SCH (12:19)
[2021-05-18] MEDS ORDERED: INSULIN LISPRO 100 UNITS/ML SUBCUT SCH (12:19)
[2021-05-18 12:43] VITALS: BP 162/87
== END 2021-05-18 12:43 | disposition left against medical advice (07) | DRG 206 ==
LOC: ER 23:49 → MICUSO 05-18 12:18
PROVIDERS: ADMIT Internal Medicine; ATTEND Internal Medicine
DX: M94.0 Chondrocostal junction syndrome [Tietze] (principal); I50.32 Chronic diastolic (congestive) heart failure; E11.9 Type 2 diabetes mellitus without complications; E66.9 Obesity, unspecified; G43.909 Migraine, unspecified, not intractable, without status migrainosus; Z53.29 Procedure and treatment not carried out because of patient's decision for other reasons; E78.00 Pure hypercholesterolemia, unspecified; E87.8 Other disorders of electrolyte and fluid balance, not elsewhere classified; I11.0 Hypertensive heart disease with heart failure; I25.10 Atherosclerotic heart disease of native coronary artery without angina pectoris; Z76.5 Malingerer [conscious simulation]; Z82.49 Family history of ischemic heart disease and other diseases of the circulatory system; Z90.49 Acquired absence of other specified parts of digestive tract; Z68.31 Body mass index [BMI] 31.0-31.9, adult; Z79.899 Other long term (current) drug therapy; Z79.82 Long term (current) use of aspirin
CPT/HCPCS: 36415; 71045; 80053; 80305; 81003; 83880; 84484; 85025; 85379; 93005; 99285; J1650

== ENCOUNTER 2021-06-04 00:30 | Emergency (ER) | payer MEDICARE, OTHER ==
[~2021-06-04] VITALS: Ht 180.3 cm; Wt 100.0 kg
[2021-06-04] MEDS ORDERED: KETOROLAC 30MG/ML VIAL IV STA (00:44)
[2021-06-04] MEDS ORDERED: NITROGLYCERIN 0.4MG TABLET SL SL PRN (00:45)
[2021-06-04 01:13] LABS: BASOPHILS % 0.8 % (0.0-2.0); EOSINOPHILS % 0.8 % (0.0-5.0); HEMATOCRIT. 46.1 % (42.0-52.0); HEMOGLOBIN. 14.8 g/dL (14.0-18.0); LYMPHOCYTES % 35.6 % (20.0-50.0); MEAN CORPUSCULAR HEMOGLOBIN 28.8 pg (28.0-32.0); MEAN CORPUSCULAR VOLUME 89.6 fL (80.0-94.0); MEAN PLATELET VOLUME 10.3 fl (7.4-10.4); MONOCYTES % 8.7 % (2.0-8.0); NEUTROPHILS % 54.1 % (40.0-76.0); PLATELET 174 x1000/uL (130-400); RED BLOOD CELL COUNT 5.15 mill/uL (4.7-6.1); RED CELL DISTRIBUTION WIDTH 14.5 % (11.6-14.6)
[2021-06-04 01:35] LABS: CHLORIDE 109 mEq/L (98-107)
[2021-06-04] MEDS ORDERED: POTASSIUM CHLORIDE 20MEQ TABLET SR PO NR (02:15)
[2021-06-04] MEDS ORDERED: HYDROCODONE/ACETAMINOPHEN 5/325MG TABLET PO ONE (02:45)
[2021-06-04 06:00] VITALS: BP 170/104
[2021-06-04] MEDS ORDERED: CLONIDINE 0.1MG TABLET PO PRN (07:00)
== END 2021-06-04 07:49 | disposition left against medical advice (07) ==
LOC: ER 00:47 → CANBEDREQ 20:44
DX: R07.89 Other chest pain (principal); Z20.822 Contact with and (suspected) exposure to COVID-19; I11.0 Hypertensive heart disease with heart failure; I50.9 Heart failure, unspecified; E11.9 Type 2 diabetes mellitus without complications; E78.00 Pure hypercholesterolemia, unspecified; Z79.899 Other long term (current) drug therapy; Z79.4 Long term (current) use of insulin
CPT/HCPCS: 36415; 71045; 80053; 83880; 84484; 85025; 87426; 93005; 96374; 99285; J1885

== ENCOUNTER 2021-08-05 01:25 | Emergency (ER) | payer MEDICARE, OTHER ==
[~2021-08-05] VITALS: Ht 185.4 cm; Wt 111.0 kg
[~2021-08-05 01:25] MED LIST changes: -TOPI100T37 MT
[2021-08-05 03:11] LABS: BASOPHILS % 1.2 % (0.0-2.0); EOSINOPHILS % 1.5 % (0.0-5.0); HEMATOCRIT. 45.5 % (42.0-52.0); HEMOGLOBIN. 15.2 g/dL (14.0-18.0); LYMPHOCYTES % 39.6 % (20.0-50.0); MEAN CORPUSCULAR HEMOGLOBIN 29.2 pg (28.0-32.0); MEAN CORPUSCULAR VOLUME 87.4 fL (80.0-94.0); MEAN PLATELET VOLUME 10.4 fl (7.4-10.4); MONOCYTES % 8.5 % (2.0-8.0); NEUTROPHILS % 49.2 % (40.0-76.0); PLATELET 158 x1000/uL (130-400); RED BLOOD CELL COUNT 5.21 mill/uL (4.7-6.1); RED CELL DISTRIBUTION WIDTH 14.7 % (11.6-14.6)
[2021-08-05 03:14] LABS: CHLORIDE 113 mEq/L (98-107)
[2021-08-05] MEDS ORDERED: HYDROCODONE/ACETAMINOPHEN 5/325MG TABLET PO ONE (03:45)
[2021-08-05 04:29] VITALS: BP 178/102
== END 2021-08-05 07:05 | disposition home or self-care (01) ==
LOC: ER 01:25
DX: R07.89 Other chest pain (principal); E11.9 Type 2 diabetes mellitus without complications; I50.9 Heart failure, unspecified; E78.00 Pure hypercholesterolemia, unspecified; Z86.59 Personal history of other mental and behavioral disorders; Z79.899 Other long term (current) drug therapy
CPT/HCPCS: 36415; 71045; 80053; 83880; 84484; 85025; 93005; 99285

== ENCOUNTER 2021-08-15 16:41 | Inpatient (IN) | payer MEDICARE, OTHER ==
[~2021-08-15] VITALS: Ht 185.4 cm; Wt 108.9 kg
[2021-08-15] MEDS ORDERED: KETOROLAC 30MG/ML VIAL IV STA (18:14)
[2021-08-15] MEDS ORDERED: DIAZEPAM 5 MG TABLET PO ONE (18:15)
[2021-08-15 19:15] LABS: CLARITY URINE CLEAR (CLEAR); COLOR URINE YELLOW (YELLOW); KETONES URINE NEGATIVE (NEGATIVE); LEUKOCYTE ESTERASE URINE NEGATIVE (NEGATIVE); NITRITE URINE NEGATIVE (NEGATIVE); OCCULT BLOOD URINE NEGATIVE (NEGATIVE); PROTEIN URINE 1+ (NEGATIVE); SPECIFIC GRAVITY URINE 1.031 (1.005-1.030)
[2021-08-15] MEDS ORDERED: HYDROCODONE/ACETAMINOPHEN 5/325MG TABLET PO ONE (19:15)
[2021-08-15 19:18] LABS: BASOPHILS % 0.9 % (0.0-2.0); EOSINOPHILS % 1.2 % (0.0-5.0); HEMATOCRIT. 41.3 % (42.0-52.0); HEMOGLOBIN. 13.8 g/dL (14.0-18.0); LYMPHOCYTES % 36.1 % (20.0-50.0); MEAN CORPUSCULAR HEMOGLOBIN 29.2 pg (28.0-32.0); MEAN CORPUSCULAR VOLUME 87.5 fL (80.0-94.0); MEAN PLATELET VOLUME 10.4 fl (7.4-10.4); MONOCYTES % 10.1 % (2.0-8.0); NEUTROPHILS % 51.7 % (40.0-76.0); PLATELET 169 x1000/uL (130-400); RED BLOOD CELL COUNT 4.72 mill/uL (4.7-6.1); RED CELL DISTRIBUTION WIDTH 14.4 % (11.6-14.6)
[2021-08-15 19:23] LABS: CHLORIDE 113 mEq/L (98-107)
[2021-08-15] MEDS ORDERED: MORPHINE SULFATE 4 MG/ML CPJ (NOT FOR IM USE) IV ONE (20:15)
[2021-08-15 22:40] VITALS: BP 136/78
[2021-08-15 22:50] VITALS: BP 128/73
[2021-08-16] VITALS (7 sets, daily range): BP systolic 117–173; BP diastolic 70–107
[2021-08-16] MEDS ORDERED: HYDROCODONE/ACETAMINOPHEN 10/325MG TABLET PO PRN (00:30)
[2021-08-16] MEDS ORDERED: SEMA0.25 SQ (01:32)
[2021-08-16] MEDS ORDERED: TOPI100T37 PO (01:32)
[2021-08-16] MEDS ORDERED: CARV3.1242 MT (01:32)
[2021-08-16] MEDS ORDERED: HYDR12.54 PO (01:32)
[2021-08-16] MEDS ORDERED: DILT60TA35 PO (01:32)
[2021-08-16] MEDS: GABAPENTIN 400MG CAPSULE PO SCH ×3 (05:18→21:20)
[2021-08-16] MEDS: HYDRALAZINE HCL 50MG TABLET PO SCH ×2 (08:44→21:22)
[2021-08-16] MEDS: ASPIRIN 81MG TABLET PO SCH (08:44)
[2021-08-16] MEDS: LISINOPRIL 40MG TABLET PO SCH (08:44)
[2021-08-16] MEDS ORDERED: ACETAMINOPHEN 325MG TABLET PO PRN (09:45)
[2021-08-16] MEDS ORDERED: ONDANSETRON HCL 4MG/2ML INJ IV PRN (09:45)
[2021-08-16] MEDS ORDERED: OXYCODONE HCL/ACETAMINOPHEN 5/325MG TABLET PO PRN (09:45)
[2021-08-16] MEDS ORDERED: NALOXONE HCL 0.4MG/ML VIAL IV PRN (09:45)
[2021-08-16] MEDS: HYDROMORPHONE HCL/PF 2MG/ML CPJ IV PRN ×2 (12:05→18:37)
[2021-08-16] MEDS: OXYCODONE HCL/ACETAMINOPHEN 5/325MG TABLET PO PRN (13:25)
[2021-08-16 16:56] LABS: BASOPHILS % 0.8 % (0.0-2.0); EOSINOPHILS % 1.6 % (0.0-5.0); HEMATOCRIT. 44.4 % (42.0-52.0); HEMOGLOBIN. 14.8 g/dL (14.0-18.0); LYMPHOCYTES % 39.4 % (20.0-50.0); MEAN CORPUSCULAR HEMOGLOBIN 29.1 pg (28.0-32.0); MEAN CORPUSCULAR VOLUME 87.4 fL (80.0-94.0); MEAN PLATELET VOLUME 10.8 fl (7.4-10.4); MONOCYTES % 9.2 % (2.0-8.0); PLATELET 177 x1000/uL (130-400); RED BLOOD CELL COUNT 5.08 mill/uL (4.7-6.1); RED CELL DISTRIBUTION WIDTH 14.5 % (11.6-14.6)
[2021-08-16 17:03] LABS: CHLORIDE 111 mEq/L (98-107)
[2021-08-16 20:17] LABS: *AMPHETAMINES SCREEN URINE NEGATIVE (NEGATIVE); *BARBITURATES SCREEN URINE NEGATIVE (NEGATIVE)
[2021-08-16 20:18] LABS: *BENZODIAZEPINES SCREEN URINE NEGATIVE (NEGATIVE); *COCAINE SCREEN URINE NEGATIVE (NEGATIVE); METHADONE URINE SCREEN NEGATIVE (NEGATIVE); OPIATES URINE SCREEN PRESUMTIVE POSITIVE (NEGATIVE); PHENCYCLIDINE URINE SCREEN NEGATIVE (NEGATIVE)
[2021-08-16 20:19] LABS: CANNABINOID URINE SCREEN NEGATIVE (NEGATIVE)
[2021-08-16] MEDS: ATORVASTATIN CALCIUM 20MG TABLET PO SCH (21:21)
[2021-08-17] VITALS: BP 173/97
[2021-08-17] MEDS: DIPHENHYDRAMINE 25MG CAPSULE PO PRN (00:50)
[2021-08-17] MEDS: OXYCODONE HCL/ACETAMINOPHEN 5/325MG TABLET PO PRN (03:24)
[2021-08-17 04:00] VITALS: BP 137/89
[2021-08-17] MEDS: GABAPENTIN 400MG CAPSULE PO SCH ×3 (05:58→21:58)
[2021-08-17 08:00] VITALS: BP 163/92
[2021-08-17] MEDS: HYDRALAZINE HCL 50MG TABLET PO SCH ×2 (09:29→21:58)
[2021-08-17] MEDS: ASPIRIN 81MG TABLET PO SCH (09:29)
[2021-08-17] MEDS: LISINOPRIL 40MG TABLET PO SCH (09:47)
[2021-08-17] MEDS: HYDROMORPHONE HCL/PF 2MG/ML CPJ IV PRN (09:57)
[2021-08-17 12:00] VITALS: BP 179/104
[2021-08-17] MEDS: HYDROCODONE/ACETAMINOPHEN 10/325MG TABLET PO PRN ×2 (14:54→22:36)
[2021-08-17 16:00] VITALS: BP 176/106
[2021-08-17 20:00] VITALS: BP 202/97
[2021-08-17] MEDS: ATORVASTATIN CALCIUM 20MG TABLET PO SCH (21:58)
[2021-08-17] MEDS ORDERED: LORAZEPAM 2MG/ML CPJ IV NR (22:30)
[2021-08-18] VITALS (7 sets, daily range): BP systolic 158–182; BP diastolic 66–111
[2021-08-18] MEDS: CLONIDINE 0.1MG TABLET PO PRN ×2 (00:12→18:04)
[2021-08-18] MEDS: DIPHENHYDRAMINE 25MG CAPSULE PO PRN (00:19)
[2021-08-18] MEDS: HYDRALAZINE HCL 50MG TABLET PO SCH ×2 (05:44→13:59)
[2021-08-18] MEDS: GABAPENTIN 400MG CAPSULE PO SCH ×3 (05:44→21:23)
[2021-08-18] MEDS: HYDROCODONE/ACETAMINOPHEN 10/325MG TABLET PO PRN ×4 (05:45→23:00)
[2021-08-18] MEDS: ASPIRIN 81MG TABLET PO SCH (08:53)
[2021-08-18] MEDS: AMLODIPINE 10MG TABLET PO SCH (08:54)
[2021-08-18] MEDS: LISINOPRIL 40MG TABLET PO SCH (08:55)
[2021-08-18] MEDS ORDERED: LORAZEPAM 2MG/ML CPJ ONE (10:29)
[2021-08-18] MEDS: HYDRALAZINE HCL 100MG TABLET PO SCH (21:24)
[2021-08-18] MEDS: ATORVASTATIN CALCIUM 20MG TABLET PO SCH (21:24)
[2021-08-18] MEDS: CLONIDINE 0.2MG TABLET PO SCH (21:24)
[2021-08-19] VITALS (7 sets, daily range): BP systolic 131–141; BP diastolic 76–86
[2021-08-19] MEDS: DIPHENHYDRAMINE 25MG CAPSULE PO PRN (01:24)
[2021-08-19] MEDS: CLONIDINE 0.2MG TABLET PO SCH ×2 (06:10→14:28)
[2021-08-19] MEDS: GABAPENTIN 400MG CAPSULE PO SCH ×2 (06:10→14:28)
[2021-08-19] MEDS: HYDRALAZINE HCL 100MG TABLET PO SCH ×2 (06:10→14:29)
[2021-08-19] MEDS: HYDROCODONE/ACETAMINOPHEN 10/325MG TABLET PO PRN ×3 (06:11→16:05)
[2021-08-19 09:07] LABS: ANTI-NUCLEAR ANTIBODIES DIRECT Negative (Negative)
[2021-08-19] MEDS: AMLODIPINE 10MG TABLET PO SCH (09:51)
[2021-08-19] MEDS: LISINOPRIL 40MG TABLET PO SCH (09:51)
[2021-08-19] MEDS: ASPIRIN 81MG TABLET PO SCH (09:51)
[2021-08-20 13:11] LABS: ANTI-MYELOPEROXIDASE AB < 9.0 U/mL (0.0-9.0); ANTI-PROTEINASE 3 ABS < 3.5 U/mL (0.0-3.5); ATYPICAL P-ANCA <1:20 titer (Neg:<1:20); CYTOPLASMIC C-ANCA <1:20 titer (Neg:<1:20); PERINUCLEAR P-ANCA <1:20 titer (Neg:<1:20)
== END 2021-08-19 20:45 | disposition home or self-care (01) | DRG 552 ==
LOC: ER 16:41 → 8WST 21:21 → ENRESERV 22:11 → 6EST 08-16 18:52
PROVIDERS: ADMIT Internal Medicine; ATTEND Internal Medicine
DX: M48.061 Spinal stenosis, lumbar region without neurogenic claudication (principal); I50.32 Chronic diastolic (congestive) heart failure; M60.9 Myositis, unspecified; M54.9 Dorsalgia, unspecified; R53.1 Weakness; I11.0 Hypertensive heart disease with heart failure; G89.29 Other chronic pain; E11.9 Type 2 diabetes mellitus without complications; T50.B95A Adverse effect of other viral vaccines, initial encounter; E78.5 Hyperlipidemia, unspecified; F40.240 Claustrophobia; G43.909 Migraine, unspecified, not intractable, without status migrainosus; E78.00 Pure hypercholesterolemia, unspecified; Z79.84 Long term (current) use of oral hypoglycemic drugs; Z79.899 Other long term (current) drug therapy; Z82.49 Family history of ischemic heart disease and other diseases of the circulatory system; Y92.89 Other specified places as the place of occurrence of the external cause; Z90.49 Acquired absence of other specified parts of digestive tract; Z79.82 Long term (current) use of aspirin; R26.2 Difficulty in walking, not elsewhere classified
CPT/HCPCS: 36415; 72131; 72148; 72192; 80048; 80053; 80305; 81003; 82550; 83520; 83615; 85025; 85651; 86038; 86140; 86256; 86431; 97162; 97166; 97530; 99285; J1170; J1885; J2060; J2270; Q0163

== ENCOUNTER 2021-09-04 00:03 | Inpatient (IN) | payer MEDICARE, OTHER ==
[~2021-09-04] VITALS: Ht 185.4 cm; Wt 107.7 kg
[~2021-09-04 00:03] MED LIST changes: -ALBU18HF2 IH; -APIX5TAB MT; -ASPI-1406 PO; -ATOR40TA70 PO; +CARV3.1242 MT; -DICL100G31 TP; -DIGO125T80 MT; -DILT240T12 PO; +DILT60TA35 PO; -FLUO10CA28 PO; -FURO40TA5 PO; +HYDR12.54 PO; -INSNOV SUBCUT; -INSU100I24 SQ; -INSU300I SQ; -LOSA100T3 PO; -METO100T16 PO; -MIRT-89 PO; +SEMA0.25 SQ
[2021-09-04 01:49] LABS: BASOPHILS % 1.1 % (0.0-2.0); EOSINOPHILS % 1.5 % (0.0-5.0); HEMATOCRIT. 45.1 % (42.0-52.0); HEMOGLOBIN. 15.1 g/dL (14.0-18.0); LYMPHOCYTES % 39.1 % (20.0-50.0); MEAN CORPUSCULAR HEMOGLOBIN 29.4 pg (28.0-32.0); MEAN CORPUSCULAR VOLUME 87.7 fL (80.0-94.0); MEAN PLATELET VOLUME 10.1 fl (7.4-10.4); MONOCYTES % 7.7 % (2.0-8.0); NEUTROPHILS % 50.6 % (40.0-76.0); PLATELET 197 x1000/uL (130-400); RED BLOOD CELL COUNT 5.14 mill/uL (4.7-6.1); RED CELL DISTRIBUTION WIDTH 14.3 % (11.6-14.6)
[2021-09-04 02:00] LABS: CHLORIDE 112 mEq/L (98-107)
[2021-09-04 02:32] LABS: CLARITY URINE CLEAR (CLEAR); COLOR URINE YELLOW (YELLOW); KETONES URINE TRACE (NEGATIVE); LEUKOCYTE ESTERASE URINE NEGATIVE (NEGATIVE); NITRITE URINE NEGATIVE (NEGATIVE); OCCULT BLOOD URINE NEGATIVE (NEGATIVE); PH URINE 6.5 (4.5-8.0); PROTEIN URINE 2+ (NEGATIVE); SPECIFIC GRAVITY URINE 1.031 (1.005-1.030)
[2021-09-04] MEDS ORDERED: ASPIRIN 81MG TABLET PO ONE (04:15)
[2021-09-04] MEDS ORDERED: ONDANSETRON HCL 4MG/2ML INJ IV ONE (04:15)
[2021-09-04] MEDS ORDERED: MORPHINE SULFATE 4 MG/ML CPJ (NOT FOR IM USE) IV ONE (04:15)
[2021-09-04] MEDS ORDERED: DOCUSATE SODIUM 100MG CAPSULE PO PRN (07:30)
[2021-09-04] MEDS ORDERED: ENOXAPARIN 40MG/0.4ML SYR SUBCUT SCH (07:30)
[2021-09-04] MEDS ORDERED: ACETAMINOPHEN 325MG TABLET PO PRN (07:30)
[2021-09-04] MEDS ORDERED: CLONIDINE 0.1MG TABLET PO PRN (07:30)
[2021-09-04] MEDS ORDERED: GUAIFENESIN 200MG/10ML SUGAR FREE UDC PO PRN (07:30)
[2021-09-04] MEDS ORDERED: MAGNESIUM/ALUMINUM HYDROXIDE/SIMETHICONE 30ML UDC PO PRN (07:30)
[2021-09-04] MEDS ORDERED: ONDANSETRON HCL 4MG/2ML INJ IV PRN (07:30)
[2021-09-04 08:00] VITALS: BP 151/102
[2021-09-04] MEDS ORDERED: NALOXONE HCL 0.4MG/ML VIAL IV PRN (08:00)
[2021-09-04] MEDS: LISINOPRIL 40MG TABLET PO SCH (09:29)
[2021-09-04 10:39] VITALS: BP 151/102
[2021-09-04] MEDS ORDERED: DEXTROSE 50% WATER 50ML SYRINGE IV PRN (10:45)
[2021-09-04] MEDS ORDERED: CLON-457 PO (10:51)
[2021-09-04] MEDS ORDERED: AMLO10TA4 PO (10:51)
[2021-09-04] MEDS: ENOXAPARIN 30MG/0.3ML SYR SUBCUT SCH ×2 (11:16→21:44)
[2021-09-04] MEDS: AMLODIPINE 10MG TABLET PO SCH (11:16)
[2021-09-04] MEDS: HYDROMORPHONE HCL/PF 2MG/ML CPJ IV PRN ×2 (11:17→16:42)
[2021-09-04] MEDS ORDERED: LISINOPRIL 40MG TABLET PO SCH (11:30)
[2021-09-04 12:00] VITALS: BP 138/79
[2021-09-04] MEDS: BLOOD SUGAR DIAGNOSTIC STRIP TEST SCH ×3 (12:32→21:28)
[2021-09-04] MEDS: INSULIN LISPRO 100 UNITS/ML SUBCUT SCH ×3 (13:06→21:49)
[2021-09-04] MEDS: DICLOFENAC SODIUM 1% GEL 50GM TOP SCH ×3 (13:07→21:45)
[2021-09-04 16:03] VITALS: BP 146/84
[2021-09-04] MEDS: METFORMIN HCL 500MG TABLET PO SCH (16:41)
[2021-09-04 20:00] VITALS: BP 157/86
[2021-09-04] MEDS ORDERED: ATORVASTATIN CALCIUM 20MG TABLET PO SCH (21:00)
[2021-09-04] MEDS: HYDRALAZINE HCL 50MG TABLET PO SCH (21:45)
[2021-09-04] MEDS: HYDROCODONE/APAP 7.5/325MG 1 TAB TABLET PO PRN (21:45)
[2021-09-05] VITALS: BP 125/78
[2021-09-05 04:00] VITALS: BP 143/89
[2021-09-05] MEDS: INSULIN LISPRO 100 UNITS/ML SUBCUT SCH ×2 (06:23→13:41)
[2021-09-05] MEDS: BLOOD SUGAR DIAGNOSTIC STRIP TEST SCH ×2 (06:23→12:20)
[2021-09-05 07:15] LABS: BASOPHILS % 0.5 % (0.0-2.0); EOSINOPHILS % 2.5 % (0.0-5.0); HEMATOCRIT. 42.2 % (42.0-52.0); HEMOGLOBIN. 14.4 g/dL (14.0-18.0); LYMPHOCYTES % 44.1 % (20.0-50.0); MEAN CORPUSCULAR HEMOGLOBIN 29.4 pg (28.0-32.0); MEAN CORPUSCULAR VOLUME 86.4 fL (80.0-94.0); MEAN PLATELET VOLUME 10.7 fl (7.4-10.4); MONOCYTES % 11.2 % (2.0-8.0); NEUTROPHILS % 41.7 % (40.0-76.0); PLATELET 183 x1000/uL (130-400); RED BLOOD CELL COUNT 4.89 mill/uL (4.7-6.1); RED CELL DISTRIBUTION WIDTH 14.7 % (11.6-14.6)
[2021-09-05 07:30] LABS: CHLORIDE 112 mEq/L (98-107)
[2021-09-05 08:00] VITALS: BP 127/88
[2021-09-05] MEDS ORDERED: ASPIRIN 81MG EC TABLET PO SCH (09:00)
[2021-09-05] MEDS: LISINOPRIL 40MG TABLET PO SCH (09:03)
[2021-09-05] MEDS: AMLODIPINE 10MG TABLET PO SCH (09:04)
[2021-09-05] MEDS: HYDRALAZINE HCL 50MG TABLET PO SCH (09:05)
[2021-09-05] MEDS: HYDROCODONE/APAP 7.5/325MG 1 TAB TABLET PO PRN (09:05)
[2021-09-05] MEDS: METFORMIN HCL 500MG TABLET PO SCH (09:06)
[2021-09-05] MEDS: ENOXAPARIN 30MG/0.3ML SYR SUBCUT SCH (09:07)
[2021-09-05] MEDS: DICLOFENAC SODIUM 1% GEL 50GM TOP SCH ×2 (09:07→13:45)
[2021-09-05] MEDS ORDERED: HYDROCODONE/APAP 7.5/325MG 1 TAB TABLET PO PRN (11:00)
[2021-09-05 12:00] VITALS: BP 152/88
[2021-09-05 12:52] VITALS: BP 152/88
== END 2021-09-05 15:18 | disposition home health service (06) | DRG 553 ==
LOC: ER 00:03 → 6WST 04:54 → ENRESERV 09:13
PROVIDERS: ADMIT Hospitalist; ATTEND Hospitalist
DX: M16.0 Bilateral primary osteoarthritis of hip (principal); I50.33 Acute on chronic diastolic (congestive) heart failure; R07.89 Other chest pain; E11.9 Type 2 diabetes mellitus without complications; I11.0 Hypertensive heart disease with heart failure; E78.5 Hyperlipidemia, unspecified; G89.29 Other chronic pain; E78.00 Pure hypercholesterolemia, unspecified; G43.909 Migraine, unspecified, not intractable, without status migrainosus; Z90.49 Acquired absence of other specified parts of digestive tract; Z82.49 Family history of ischemic heart disease and other diseases of the circulatory system; Z79.82 Long term (current) use of aspirin; Z79.899 Other long term (current) drug therapy
CPT/HCPCS: 36415; 71045; 80053; 81003; 82962; 83036; 83880; 84484; 85025; 93005; 97162; 99285; J1170; J1650; J1815; J2270; J2405

== ENCOUNTER 2021-12-14 00:07 | Inpatient (IN) | payer MEDICARE, OTHER ==
[~2021-12-14] VITALS: Ht 182.9 cm; Wt 108.9 kg
[~2021-12-14 00:07] MED LIST changes: +AMLO10TA4 PO; -CARV3.1242 MT; +CLON-457 PO; -DILT60TA35 PO; -DIPH25CA83 MT; -GABA-533 PO; -ISOS60TA76 PO; -NITR2.5C16 PO; +NITR2.5C17 PO; -SEMA0.25 SQ
[2021-12-14] MEDS ORDERED: ASPIRIN 325MG EC TABLET PO ONE (01:15)
[2021-12-14] MEDS ORDERED: MORPHINE SULFATE 4 MG/ML CPJ (NOT FOR IM USE) IV ONE (01:15)
[2021-12-14 02:15] LABS: BASOPHILS % 0.7 % (0.0-2.0); EOSINOPHILS % 1.5 % (0.0-5.0); HEMATOCRIT. 43.1 % (42.0-52.0); HEMOGLOBIN. 14.2 g/dL (14.0-18.0); LYMPHOCYTES % 40.1 % (20.0-50.0); MEAN CORPUSCULAR HEMOGLOBIN 29.3 pg (28.0-32.0); MEAN CORPUSCULAR VOLUME 88.8 fL (80.0-94.0); MEAN PLATELET VOLUME 10.6 fl (7.4-10.4); MONOCYTES % 9.8 % (2.0-8.0); NEUTROPHILS % 47.9 % (40.0-76.0); PLATELET 157 x1000/uL (130-400); RED BLOOD CELL COUNT 4.85 mill/uL (4.7-6.1); RED CELL DISTRIBUTION WIDTH 15.1 % (11.6-14.6)
[2021-12-14 02:22] LABS: CHLORIDE 111 mEq/L (98-107)
[2021-12-14 02:26] LABS: *AMPHETAMINES SCREEN URINE NEGATIVE (NEGATIVE); *BARBITURATES SCREEN URINE NEGATIVE (NEGATIVE); *BENZODIAZEPINES SCREEN URINE NEGATIVE (NEGATIVE); *COCAINE SCREEN URINE NEGATIVE (NEGATIVE); CANNABINOID URINE SCREEN NEGATIVE (NEGATIVE); METHADONE URINE SCREEN NEGATIVE (NEGATIVE); OPIATES URINE SCREEN NEGATIVE (NEGATIVE); PHENCYCLIDINE URINE SCREEN NEGATIVE (NEGATIVE)
[2021-12-14 02:32] LABS: ETHANOL BLOOD < 10 mg/dL
[2021-12-14 06:15] VITALS: BP 162/95
[2021-12-14] MEDS ORDERED: FLOV11 INH (06:59)
[2021-12-14] MEDS ORDERED: LIDO700A30 TP (06:59)
[2021-12-14] MEDS: BLOOD SUGAR DIAGNOSTIC STRIP TEST SCH ×2 (07:40→12:47)
[2021-12-14] MEDS ORDERED: NALOXONE HCL 0.4MG/ML VIAL IV PRN (07:45)
[2021-12-14] MEDS ORDERED: MORPHINE SULFATE 2 MG/ML CPJ (NOT FOR IM USE) IV PRN (07:45)
[2021-12-14] MEDS ORDERED: DEXTROSE 50% WATER 50ML SYRINGE IV PRN (07:45)
[2021-12-14] MEDS: INSULIN LISPRO 100 UNITS/ML SUBCUT SCH ×2 (09:06→12:52)
[2021-12-14] MEDS ORDERED: FUROSEMIDE 40MG TABLET PO SCH (10:00)
[2021-12-14] MEDS ORDERED: ASPIRIN 81MG TABLET PO SCH (10:00)
[2021-12-14] MEDS ORDERED: CLONIDINE 0.2MG TABLET PO PRN (10:30)
[2021-12-14] MEDS ORDERED: TIZANIDINE HCL 2MG TABLET PO PRN (10:30)
[2021-12-14 12:00] VITALS: BP 146/97
[2021-12-14] MEDS ORDERED: LISINOPRIL 40MG TABLET PO SCH (12:00)
[2021-12-14] MEDS ORDERED: HYDRALAZINE HCL 100MG TABLET PO SCH (14:00)
[2021-12-14] MEDS ORDERED: METFORMIN HCL 500MG TABLET PO SCH (18:10)
[2021-12-14] MEDS ORDERED: ATORVASTATIN CALCIUM 40MG TABLET PO SCH (21:00)
== END 2021-12-14 14:40 | disposition left against medical advice (07) | DRG 392 ==
LOC: ER 00:07 → EDBEDREQ 03:03 → ENRESERV 03:22 → 7WST 07:27
PROVIDERS: ADMIT Family Medicine; ATTEND Family Medicine
DX: K21.9 Gastro-esophageal reflux disease without esophagitis (principal); I11.0 Hypertensive heart disease with heart failure; I50.9 Heart failure, unspecified; E11.9 Type 2 diabetes mellitus without complications; E78.00 Pure hypercholesterolemia, unspecified; G43.909 Migraine, unspecified, not intractable, without status migrainosus; M19.90 Unspecified osteoarthritis, unspecified site; E66.9 Obesity, unspecified; I25.10 Atherosclerotic heart disease of native coronary artery without angina pectoris; Z82.49 Family history of ischemic heart disease and other diseases of the circulatory system; Z90.49 Acquired absence of other specified parts of digestive tract; Z87.891 Personal history of nicotine dependence; Z53.29 Procedure and treatment not carried out because of patient's decision for other reasons; Z68.32 Body mass index [BMI] 32.0-32.9, adult; Z91.14 Patient's other noncompliance with medication regimen
CPT/HCPCS: 36415; 71045; 80053; 80305; 80320; 82962; 83036; 83880; 84484; 85025; 93005; 99285; J1815; J2270; G0480

== ENCOUNTER 2021-12-28 13:51 | Emergency (ER) | payer MEDICARE ==
[~2021-12-28] VITALS: Ht 177.8 cm; Wt 108.4 kg
[~2021-12-28 13:51] MED LIST changes: +FLOV11 INH; +LIDO700A30 TP
[2021-12-28 15:06] LABS: BASOPHILS % 0.8 % (0.0-2.0); EOSINOPHILS % 1.4 % (0.0-5.0); HEMATOCRIT. 44.5 % (42.0-52.0); HEMOGLOBIN. 14.7 g/dL (14.0-18.0); LYMPHOCYTES % 37.9 % (20.0-50.0); MEAN CORPUSCULAR HEMOGLOBIN 29.5 pg (28.0-32.0); MEAN CORPUSCULAR VOLUME 89.2 fL (80.0-94.0); MEAN PLATELET VOLUME 10.7 fl (7.4-10.4); MONOCYTES % 7.8 % (2.0-8.0); NEUTROPHILS % 52.1 % (40.0-76.0); PLATELET 161 x1000/uL (130-400); RED BLOOD CELL COUNT 4.99 mill/uL (4.7-6.1); RED CELL DISTRIBUTION WIDTH 14.8 % (11.6-14.6)
[2021-12-28 15:07] LABS: CLARITY URINE CLEAR (CLEAR); COLOR URINE YELLOW (YELLOW); KETONES URINE NEGATIVE (NEGATIVE); LEUKOCYTE ESTERASE URINE NEGATIVE (NEGATIVE); NITRITE URINE NEGATIVE (NEGATIVE); OCCULT BLOOD URINE NEGATIVE (NEGATIVE); PROTEIN URINE 1+ (NEGATIVE); SPECIFIC GRAVITY URINE 1.027 (1.005-1.030)
[2021-12-28 15:11] LABS: CHLORIDE 110 mEq/L (98-107)
[2021-12-28] MEDS ORDERED: SODIUM CHLORIDE 0.9% 1,000 ML IV ONE (15:15)
[2021-12-28] MEDS ORDERED: ACETAMINOPHEN 325MG TABLET PO NR (15:45)
[2021-12-28] MEDS ORDERED: ASPIRIN 325MG EC TABLET PO NR (15:45)
[2021-12-28] MEDS ORDERED: ACETAMINOPHEN 325MG TABLET PO PRN ×2 (19:15)
[2021-12-28] MEDS ORDERED: ZOLPIDEM TARTRATE 5MG TABLET PO PRN (19:15)
[2021-12-28] MEDS ORDERED: DIPHENHYDRAMINE 50MG/ML VIAL IV PRN (19:15)
[2021-12-28] MEDS ORDERED: CLONIDINE 0.1MG TABLET PO PRN (19:15)
[2021-12-28] MEDS ORDERED: ONDANSETRON HCL 4MG/2ML INJ IV PRN (19:15)
[2021-12-28] MEDS ORDERED: ATORVASTATIN CALCIUM 40MG TABLET PO SCH (21:00)
[2021-12-28] MEDS ORDERED: LISINOPRIL 20MG TABLET PO SCH (21:00)
[2021-12-28 21:55] VITALS: BP 153/96
[2021-12-28] MEDS ORDERED: SODIUM CHLORIDE 0.9% INJ 3ML FLUSH IVF SCH (22:00)
[2021-12-28] MEDS ORDERED: HYDRALAZINE HCL 50MG TABLET PO SCH (22:00)
[2021-12-29] MEDS ORDERED: ASPIRIN 81MG EC TABLET PO SCH (09:00)
[2021-12-29] MEDS ORDERED: METFORMIN HCL 500MG TABLET PO SCH (09:00)
== END 2021-12-28 23:55 | disposition home or self-care (01) ==
LOC: ER 14:01 → EDBEDREQ 15:52 → CANBEDREQ 22:30 → ER 23:55
DX: R55 Syncope and collapse (principal); R07.89 Other chest pain; R20.0 Anesthesia of skin; I11.0 Hypertensive heart disease with heart failure; I50.9 Heart failure, unspecified; E11.9 Type 2 diabetes mellitus without complications; G43.909 Migraine, unspecified, not intractable, without status migrainosus; Z90.49 Acquired absence of other specified parts of digestive tract; Z79.899 Other long term (current) drug therapy
CPT/HCPCS: 36415; 70450; 71045; 80053; 81003; 82962; 83880; 84484; 85025; 93005; 96360; 96361; 99285; J7030

== ENCOUNTER 2022-02-09 16:52 | Emergency (ER) | payer MEDICARE ==
[~2022-02-09] VITALS: Ht 175.3 cm; Wt 91.0 kg
[2022-02-09] MEDS ORDERED: MORPHINE SULFATE 4 MG/ML CPJ (NOT FOR IM USE) IV STA (17:38)
[2022-02-09] MEDS ORDERED: ONDANSETRON HCL 4MG/2ML INJ IV STA (17:38)
[2022-02-09] MEDS ORDERED: SODIUM CHLORIDE 0.9% 1,000 ML IV ONE (17:45)
[2022-02-09 18:58] LABS: BASOPHILS % 0.8 % (0.0-2.0); EOSINOPHILS % 1.8 % (0.0-5.0); HEMATOCRIT. 42.8 % (42.0-52.0); HEMOGLOBIN. 14.2 g/dL (14.0-18.0); LYMPHOCYTES % 43.7 % (20.0-50.0); MEAN CORPUSCULAR HEMOGLOBIN 29.3 pg (28.0-32.0); MEAN CORPUSCULAR VOLUME 88.4 fL (80.0-94.0); MEAN PLATELET VOLUME 10.9 fl (7.4-10.4); MONOCYTES % 8.1 % (2.0-8.0); NEUTROPHILS % 45.6 % (40.0-76.0); PLATELET 155 x1000/uL (130-400); RED BLOOD CELL COUNT 4.84 mill/uL (4.7-6.1); RED CELL DISTRIBUTION WIDTH 14.4 % (11.6-14.6)
[2022-02-09 19:11] LABS: CHLORIDE 115 mEq/L (98-107)
[2022-02-09 19:15] LABS: PARTIAL THROMBOPLASTIN TIME 26.7 sec (23.4-31.0); PROTHROMBIN TIME 10.7 sec (9.6-11.0)
[2022-02-09 19:28] LABS: ETHANOL BLOOD < 10 mg/dL
[2022-02-09 22:10] LABS: *AMPHETAMINES SCREEN URINE NEGATIVE (NEGATIVE); *BARBITURATES SCREEN URINE NEGATIVE (NEGATIVE); *BENZODIAZEPINES SCREEN URINE NEGATIVE (NEGATIVE); *COCAINE SCREEN URINE NEGATIVE (NEGATIVE); CANNABINOID URINE SCREEN NEGATIVE (NEGATIVE); METHADONE URINE SCREEN NEGATIVE (NEGATIVE); OPIATES URINE SCREEN PRESUMTIVE POSITIVE (NEGATIVE); PHENCYCLIDINE URINE SCREEN NEGATIVE (NEGATIVE)
[2022-02-09] MEDS ORDERED: IOHEXOL-350 100 ML BOTTLE ONE (22:18)
[2022-02-09 23:14] VITALS: BP 127/80
== END 2022-02-09 23:33 | disposition home or self-care (01) ==
LOC: ER 16:52
DX: G89.29 Other chronic pain (principal); M54.59 Other low back pain; M25.551 Pain in right hip; R26.2 Difficulty in walking, not elsewhere classified; R07.89 Other chest pain; E87.6 Hypokalemia; I11.0 Hypertensive heart disease with heart failure; I50.9 Heart failure, unspecified; E11.9 Type 2 diabetes mellitus without complications
CPT/HCPCS: 36415; 71045; 71275; 74174; 80053; 80305; 80320; 83880; 84484; 85025; 85610; 85730; 86850; 86900; 86901; 93005; 96361; 96374; 96375; 99285; J2270; J2405; J7030; Q9967; G0480

== ENCOUNTER 2022-02-25 13:13 | Emergency (ER) | payer MEDICARE ==
[~2022-02-25] VITALS: Ht 185.4 cm; Wt 106.0 kg
[2022-02-25 14:59] LABS: BASOPHILS % 1.1 % (0.0-2.0); EOSINOPHILS % 1.1 % (0.0-5.0); HEMATOCRIT. 43.3 % (42.0-52.0); HEMOGLOBIN. 14.3 g/dL (14.0-18.0); LYMPHOCYTES % 38.5 % (20.0-50.0); MEAN CORPUSCULAR HEMOGLOBIN 29.4 pg (28.0-32.0); MEAN CORPUSCULAR VOLUME 89.2 fL (80.0-94.0); MEAN PLATELET VOLUME 9.9 fl (7.4-10.4); MONOCYTES % 9.1 % (2.0-8.0); NEUTROPHILS % 50.2 % (40.0-76.0); PLATELET 140 x1000/uL (130-400); RED BLOOD CELL COUNT 4.86 mill/uL (4.7-6.1)
[2022-02-25 15:06] LABS: CHLORIDE 112 mEq/L (98-107)
[2022-02-25 15:10] LABS: INR 1.1; PROTHROMBIN TIME 11.4 sec (9.6-11.0)
[2022-02-25] MEDS ORDERED: ACETAMINOPHEN 325MG TABLET PO ONE (16:15)
[2022-02-25] MEDS ORDERED: METOCLOPRAMIDE HCL 10MG/2ML VIAL IV ONE (16:15)
[2022-02-25] MEDS ORDERED: ACET-2708 MT (20:26)
[2022-02-25 20:28] VITALS: BP 140/77
== END 2022-02-25 20:58 | disposition home or self-care (01) ==
LOC: ER 13:13
DX: R07.89 Other chest pain (principal); R51.9 Headache, unspecified; R20.0 Anesthesia of skin; I11.0 Hypertensive heart disease with heart failure; I50.9 Heart failure, unspecified; E11.9 Type 2 diabetes mellitus without complications; Z86.73 Personal history of transient ischemic attack (TIA), and cerebral infarction without residual deficits; Z79.899 Other long term (current) drug therapy; Z79.84 Long term (current) use of oral hypoglycemic drugs
CPT/HCPCS: 36415; 70450; 71045; 80053; 82962; 83880; 84484; 85025; 85610; 96374; 99285; J2765

== ENCOUNTER 2022-04-07 23:20 | Inpatient (IN) | payer MEDICARE, MEDICAID ==
[~2022-04-07] VITALS: Ht 182.9 cm; Wt 1.8 kg
[~2022-04-07 23:20] MED LIST changes: +ACET-2708 MT
[2022-04-08 02:05] LABS: BASOPHILS % 1.1 % (0.0-2.0); EOSINOPHILS % 1.5 % (0.0-5.0); HEMATOCRIT. 44.3 % (42.0-52.0); HEMOGLOBIN. 14.5 g/dL (14.0-18.0); LYMPHOCYTES % 35.7 % (20.0-50.0); MEAN CORPUSCULAR HEMOGLOBIN 29.2 pg (28.0-32.0); MEAN CORPUSCULAR VOLUME 89.2 fL (80.0-94.0); MEAN PLATELET VOLUME 10.4 fl (7.4-10.4); NEUTROPHILS % 52.7 % (40.0-76.0); PLATELET 157 x1000/uL (130-400); RED BLOOD CELL COUNT 4.97 mill/uL (4.7-6.1); RED CELL DISTRIBUTION WIDTH 14.8 % (11.6-14.6)
[2022-04-08 02:13] LABS: CHLORIDE 107 mEq/L (98-107)
[2022-04-08] MEDS ORDERED: ACETAMINOPHEN 325MG TABLET PO ONE (07:30)
[2022-04-08 14:00] VITALS: BP 148/93
[2022-04-08] MEDS ORDERED: HYDROCODONE/ACETAMINOPHEN 5/325MG TABLET PO PRN (14:45)
[2022-04-08] MEDS ORDERED: MAGNESIUM/ALUMINUM HYDROXIDE/SIMETHICONE 30ML UDC PO PRN ×2 (14:45→15:00)
[2022-04-08] MEDS ORDERED: CLONIDINE 0.1MG TABLET PO PRN ×2 (14:45→15:00)
[2022-04-08] MEDS ORDERED: ACETAMINOPHEN 325MG TABLET PO PRN (14:45)
[2022-04-08] MEDS ORDERED: ONDANSETRON HCL 4MG/2ML INJ IV PRN (14:45)
[2022-04-08] MEDS ORDERED: NITROGLYCERIN 0.4MG TABLET SL SL PRN (15:00)
[2022-04-08] MEDS ORDERED: GUAIFENESIN 200MG/10ML SUGAR FREE UDC PO PRN (15:00)
[2022-04-08] MEDS ORDERED: KETOROLAC 30MG/ML VIAL IV PRN (15:00)
[2022-04-08] MEDS ORDERED: IPRATROPIUM/ALBUTEROL 0.5-3(2.5)MG/3ML NEB NEB PRN (15:00)
[2022-04-08] MEDS ORDERED: DOCUSATE SODIUM 100MG CAPSULE PO PRN (15:00)
[2022-04-08] MEDS ORDERED: ZOLPIDEM TARTRATE 5MG TABLET PO PRN (15:00)
[2022-04-08] MEDS ORDERED: DEXTROSE 50% WATER 50ML SYRINGE IV PRN (15:00)
[2022-04-08] MEDS ORDERED: AMLODIPINE 10MG TABLET PO SCH (15:00)
[2022-04-08] MEDS ORDERED: NALOXONE HCL 0.4MG/ML VIAL IV PRN (15:30)
[2022-04-08] MEDS ORDERED: BLOOD SUGAR DIAGNOSTIC STRIP TEST SCH (16:50)
[2022-04-08 17:17] LABS: T4 FREE 1.26 ng/dL (0.76-1.46)
[2022-04-08] MEDS ORDERED: INSULIN LISPRO 100 UNITS/ML SUBCUT SCH (17:20)
[2022-04-08 18:00] LABS: VITAMIN B12 SERUM 1209 pg/mL (211-911)
[2022-04-08] MEDS ORDERED: ENOXAPARIN 30MG/0.3ML SYR SUBCUT SCH (18:00)
[2022-04-08] MEDS ORDERED: LISINOPRIL 20MG TABLET PO SCH (21:00)
[2022-04-08] MEDS ORDERED: ATORVASTATIN CALCIUM 20MG TABLET PO SCH (21:00)
[2022-04-08] MEDS ORDERED: HYDRALAZINE HCL 50MG TABLET PO SCH (22:00)
[2022-04-09] MEDS ORDERED: OMEPRAZOLE 20MG CAPSULE EXTENDED RELEASE PO SCH (06:50)
[2022-04-09] MEDS ORDERED: ASPIRIN 325MG EC TABLET PO SCH (09:00)
== END 2022-04-08 16:45 | disposition left against medical advice (07) | DRG 607 ==
LOC: ER 23:20 → 3WST 04-08 10:10 → EDBEDREQTM 04-08 10:40 → EDBEDREQ 04-08 10:40
PROVIDERS: ADMIT Internal Medicine; ATTEND Internal Medicine
DX: R22.1 Localized swelling, mass and lump, neck (principal); I25.10 Atherosclerotic heart disease of native coronary artery without angina pectoris; I11.0 Hypertensive heart disease with heart failure; I50.9 Heart failure, unspecified; G43.909 Migraine, unspecified, not intractable, without status migrainosus; E11.9 Type 2 diabetes mellitus without complications; E78.00 Pure hypercholesterolemia, unspecified; E78.5 Hyperlipidemia, unspecified; M16.10 Unilateral primary osteoarthritis, unspecified hip; Z53.29 Procedure and treatment not carried out because of patient's decision for other reasons; Z79.899 Other long term (current) drug therapy; Z79.51 Long term (current) use of inhaled steroids; Z82.49 Family history of ischemic heart disease and other diseases of the circulatory system; Z86.73 Personal history of transient ischemic attack (TIA), and cerebral infarction without residual deficits; Z90.49 Acquired absence of other specified parts of digestive tract
CPT/HCPCS: 36415; 71045; 80053; 82607; 82746; 82962; 83036; 83540; 83550; 83880; 84439; 84484; 85025; 93005; 93306; 93880; 99285

== ENCOUNTER 2022-06-15 13:32 | Emergency (ER) | payer MEDICARE, MEDICAID ==
[~2022-06-15] VITALS: Ht 185.4 cm; Wt 109.0 kg
[2022-06-15 13:54] VITALS: BP 158/93
[2022-06-15 18:03] LABS: BASOPHILS % 0.6 % (0.0-2.0); EOSINOPHILS % 1.3 % (0.0-5.0); HEMATOCRIT. 45.5 % (42.0-52.0); HEMOGLOBIN. 15.2 g/dL (14.0-18.0); LYMPHOCYTES % 36.6 % (20.0-50.0); MEAN CORPUSCULAR HEMOGLOBIN 29.8 pg (28.0-32.0); MEAN CORPUSCULAR VOLUME 89.1 fL (80.0-94.0); MEAN PLATELET VOLUME 10.5 fl (7.4-10.4); MONOCYTES % 5.7 % (2.0-8.0); NEUTROPHILS % 55.8 % (40.0-76.0); PLATELET 157 x1000/uL (130-400); RED BLOOD CELL COUNT 5.11 mill/uL (4.7-6.1); RED CELL DISTRIBUTION WIDTH 14.4 % (11.6-14.6)
[2022-06-15 18:12] LABS: CHLORIDE 112 mEq/L (98-107)
[2022-06-15 22:34] LABS: CLARITY URINE CLEAR (CLEAR); COLOR URINE YELLOW (YELLOW); KETONES URINE 1+ (NEGATIVE); LEUKOCYTE ESTERASE URINE NEGATIVE (NEGATIVE); NITRITE URINE NEGATIVE (NEGATIVE); OCCULT BLOOD URINE NEGATIVE (NEGATIVE); PROTEIN URINE 1+ (NEGATIVE); SPECIFIC GRAVITY URINE 1.033 (1.005-1.030)
== END 2022-06-15 23:41 | disposition home or self-care (01) ==
LOC: ER 13:32
DX: R10.31 Right lower quadrant pain (principal); R07.89 Other chest pain; I70.0 Atherosclerosis of aorta; R00.0 Tachycardia, unspecified; I10 Essential (primary) hypertension; E11.9 Type 2 diabetes mellitus without complications; E78.5 Hyperlipidemia, unspecified; Z79.899 Other long term (current) drug therapy; Z79.82 Long term (current) use of aspirin
CPT/HCPCS: 36415; 71045; 74176; 80053; 81003; 84484; 85025; 93005; 99285

== ENCOUNTER 2022-06-23 12:40 | Emergency (ER) | payer MEDICARE, MEDICAID ==
[~2022-06-23] VITALS: Ht 182.9 cm; Wt 101.0 kg
[2022-06-23] MEDS ORDERED: IBUPROFEN 600MG TABLET PO STA (14:50)
[2022-06-23 15:32] LABS: BASOPHILS % 0.8 % (0.0-2.0); EOSINOPHILS % 1.3 % (0.0-5.0); HEMATOCRIT. 46.4 % (42.0-52.0); HEMOGLOBIN. 15.5 g/dL (14.0-18.0); LYMPHOCYTES % 37.8 % (20.0-50.0); MEAN CORPUSCULAR HEMOGLOBIN 29.8 pg (28.0-32.0); MEAN CORPUSCULAR VOLUME 89.5 fL (80.0-94.0); MEAN PLATELET VOLUME 10.1 fl (7.4-10.4); MONOCYTES % 8.2 % (2.0-8.0); NEUTROPHILS % 51.9 % (40.0-76.0); PLATELET 152 x1000/uL (130-400); RED BLOOD CELL COUNT 5.19 mill/uL (4.7-6.1); RED CELL DISTRIBUTION WIDTH 15.2 % (11.6-14.6)
[2022-06-23 15:36] LABS: CLARITY URINE CLEAR (CLEAR); COLOR URINE YELLOW (YELLOW); KETONES URINE TRACE (NEGATIVE); LEUKOCYTE ESTERASE URINE NEGATIVE (NEGATIVE); NITRITE URINE NEGATIVE (NEGATIVE); OCCULT BLOOD URINE NEGATIVE (NEGATIVE); PROTEIN URINE TRACE (NEGATIVE); SPECIFIC GRAVITY URINE 1.043 (1.005-1.030); UROBILINOGEN URINE 0.2 E.U./dL (0.2-1.0)
[2022-06-23 15:37] LABS: CHLORIDE 110 mEq/L (98-107)
[2022-06-23 18:38] VITALS: BP 143/90
== END 2022-06-23 18:39 | disposition home or self-care (01) ==
LOC: ER 12:56
DX: R10.9 Unspecified abdominal pain (principal); N28.89 Other specified disorders of kidney and ureter; I16.0 Hypertensive urgency; I11.0 Hypertensive heart disease with heart failure; I50.9 Heart failure, unspecified; E11.9 Type 2 diabetes mellitus without complications; E78.00 Pure hypercholesterolemia, unspecified; G43.909 Migraine, unspecified, not intractable, without status migrainosus; Z79.899 Other long term (current) drug therapy
CPT/HCPCS: 36415; 74176; 80053; 81003; 85025; 99284

== ENCOUNTER 2022-07-06 18:07 | Emergency (ER) | payer MEDICARE, MEDICAID ==
[~2022-07-06] VITALS: Ht 185.4 cm; Wt 107.0 kg
[2022-07-06 20:28] LABS: BASOPHILS % 0.8 % (0.0-2.0); EOSINOPHILS % 1.3 % (0.0-5.0); HEMATOCRIT. 43.4 % (42.0-52.0); HEMOGLOBIN. 14.4 g/dL (14.0-18.0); LYMPHOCYTES % 28.8 % (20.0-50.0); MEAN CORPUSCULAR HEMOGLOBIN 29.5 pg (28.0-32.0); MEAN CORPUSCULAR VOLUME 89.1 fL (80.0-94.0); MEAN PLATELET VOLUME 10.2 fl (7.4-10.4); MONOCYTES % 10.3 % (2.0-8.0); NEUTROPHILS % 58.8 % (40.0-76.0); PLATELET 159 x1000/uL (130-400); RED BLOOD CELL COUNT 4.87 mill/uL (4.7-6.1); RED CELL DISTRIBUTION WIDTH 14.9 % (11.6-14.6)
[2022-07-06 20:35] LABS: CHLORIDE 113 mEq/L (98-107)
[2022-07-06] MEDS ORDERED: MAGNESIUM/ALUMINUM HYDROXIDE/SIMETHICONE 30ML UDC PO STA (20:47)
[2022-07-06] MEDS ORDERED: VISCOUS LIDOCAINE 2% 15 ML UDC PO STA (20:47)
[2022-07-06] MEDS ORDERED: DICYCLOMINE 10 MG/5 ML ORAL SYR PO STA (20:47)
[2022-07-06] MEDS ORDERED: IBUP-2029 MT (22:35)
[2022-07-06 22:56] VITALS: BP 140/82
== END 2022-07-06 22:58 | disposition home or self-care (01) ==
LOC: ER 18:07
DX: R07.89 Other chest pain (principal); R10.33 Periumbilical pain
CPT/HCPCS: 36415; 71045; 74176; 80053; 83880; 84484; 85025; 93005; 99285

== ENCOUNTER 2022-08-17 14:04 | Inpatient (IN) | payer MEDICARE, MEDICAID ==
[~2022-08-17] VITALS: Ht 185.4 cm; Wt 107.7 kg
[~2022-08-17 14:04] MED LIST changes: +IBUP-2029 MT
[2022-08-17 15:39] LABS: BASOPHILS % 0.7 % (0.0-2.0); CHLORIDE 112 mEq/L (98-107); EOSINOPHILS % 0.7 % (0.0-5.0); HEMATOCRIT. 42.8 % (42.0-52.0); HEMOGLOBIN. 14.2 g/dL (14.0-18.0); LYMPHOCYTES % 33.7 % (20.0-50.0); MEAN CORPUSCULAR HEMOGLOBIN 29.3 pg (28.0-32.0); MEAN CORPUSCULAR VOLUME 88.5 fL (80.0-94.0); MEAN PLATELET VOLUME 9.3 fl (7.4-10.4); NEUTROPHILS % 57.9 % (40.0-76.0); PLATELET 175 x1000/uL (130-400); RED BLOOD CELL COUNT 4.83 mill/uL (4.7-6.1); RED CELL DISTRIBUTION WIDTH 14.7 % (11.6-14.6)
[2022-08-17 15:45] LABS: PARTIAL THROMBOPLASTIN TIME 26.5 sec (23.4-31.0); PROTHROMBIN TIME 10.6 sec (9.6-11.0)
[2022-08-17] MEDS ORDERED: NITROGLYCERIN 0.4MG TABLET SL SL ONE (15:45)
[2022-08-17] MEDS ORDERED: ASPIRIN 81MG TABLET PO ONE (15:45)
[2022-08-17] MEDS ORDERED: CLONIDINE 0.1MG TABLET PO PRN (18:00)
[2022-08-17] MEDS ORDERED: ACETAMINOPHEN 325MG TABLET PO PRN ×2 (18:00)
[2022-08-17] MEDS ORDERED: DOCUSATE SODIUM 100MG CAPSULE PO PRN (18:00)
[2022-08-17] MEDS ORDERED: IPRATROPIUM/ALBUTEROL 0.5-3(2.5)MG/3ML NEB HHN PRN (18:00)
[2022-08-17] MEDS ORDERED: ONDANSETRON HCL 4MG/2ML INJ IV PRN (18:00)
[2022-08-17] MEDS ORDERED: LORAZEPAM 0.5MG TABLET PO PRN (18:00)
[2022-08-17] MEDS ORDERED: NALOXONE HCL 0.4MG/ML VIAL IV PRN (18:15)
[2022-08-17] MEDS: HYDROCODONE/ACETAMINOPHEN 5/325MG TABLET PO PRN (18:38)
[2022-08-17] MEDS ORDERED: ASPIRIN 81MG TABLET PO NR (19:45)
[2022-08-17] MEDS ORDERED: NITROGLYCERIN 0.4MG TABLET SL SL NR (19:45)
[2022-08-18] VITALS (7 sets, daily range): BP systolic 112–159; BP diastolic 72–91
[2022-08-18] MEDS: HYDROCODONE/ACETAMINOPHEN 5/325MG TABLET PO PRN ×4 (00:42→21:13)
[2022-08-18 06:20] LABS: BASOPHILS % 0.7 % (0.0-2.0); EOSINOPHILS % 1.2 % (0.0-5.0); HEMATOCRIT. 41.7 % (42.0-52.0); HEMOGLOBIN. 13.9 g/dL (14.0-18.0); LYMPHOCYTES % 41.3 % (20.0-50.0); MEAN CORPUSCULAR HEMOGLOBIN 29.7 pg (28.0-32.0); MEAN PLATELET VOLUME 10.1 fl (7.4-10.4); MONOCYTES % 9.7 % (2.0-8.0); NEUTROPHILS % 47.1 % (40.0-76.0); PLATELET 153 x1000/uL (130-400); RED BLOOD CELL COUNT 4.69 mill/uL (4.7-6.1); RED CELL DISTRIBUTION WIDTH 15.1 % (11.6-14.6)
[2022-08-18 07:49] LABS: CHLORIDE 114 mEq/L (98-107)
[2022-08-18] MEDS: ASPIRIN 81MG TABLET PO SCH (11:39)
[2022-08-18] MEDS: METOPROLOL TARTRATE 25MG TABLET PO SCH (21:12)
[2022-08-19] VITALS: BP 124/69
[2022-08-19 04:00] VITALS: BP 106/73
[2022-08-19 08:00] VITALS: BP 117/69
[2022-08-19] MEDS ORDERED: TOPIRAMATE 100MG TABLET PO SCH (09:00)
[2022-08-19] MEDS ORDERED: REGADENOSON 0.4 MG/5 ML IV ONE (10:06)
[2022-08-19 12:00] VITALS: BP 115/67
[2022-08-19] MEDS: ASPIRIN 81MG TABLET PO SCH (12:03)
[2022-08-19] MEDS: METOPROLOL TARTRATE 25MG TABLET PO SCH (12:03)
[2022-08-19] MEDS: HYDROCODONE/ACETAMINOPHEN 5/325MG TABLET PO PRN (12:04)
[2022-08-19] MEDS ORDERED: REGADENOSON 0.4 MG/5 ML IV NR (13:15)
[2022-08-19 15:11] VITALS: BP 115/67
== END 2022-08-19 15:15 | disposition home health service (06) | DRG 206 ==
LOC: ER 14:04 → MICUSO 16:51 → EDBEDREQ 16:54 → EDBEDREQTM 16:54 → 7EST 08-18 00:27
PROVIDERS: ADMIT Family Medicine Adult Medicine; ATTEND Family Medicine Adult Medicine
DX: M94.0 Chondrocostal junction syndrome [Tietze] (principal); K76.0 Fatty (change of) liver, not elsewhere classified; I11.0 Hypertensive heart disease with heart failure; E11.9 Type 2 diabetes mellitus without complications; I50.9 Heart failure, unspecified; I25.10 Atherosclerotic heart disease of native coronary artery without angina pectoris; F41.9 Anxiety disorder, unspecified; E78.00 Pure hypercholesterolemia, unspecified; G43.909 Migraine, unspecified, not intractable, without status migrainosus; E78.5 Hyperlipidemia, unspecified; Z20.822 Contact with and (suspected) exposure to COVID-19; Z79.51 Long term (current) use of inhaled steroids; Z86.73 Personal history of transient ischemic attack (TIA), and cerebral infarction without residual deficits; Z87.891 Personal history of nicotine dependence; Z90.49 Acquired absence of other specified parts of digestive tract; Z79.84 Long term (current) use of oral hypoglycemic drugs; Z82.49 Family history of ischemic heart disease and other diseases of the circulatory system
CPT/HCPCS: 36415; 71045; 78452; 80048; 80053; 80076; 82962; 83880; 84484; 85025; 85379; 87426; 93005; 93017; 93306; 99285; A9500; C9803; J2785

== ENCOUNTER 2022-09-16 00:52 | Emergency (ER) | payer MEDICARE, MEDICAID ==
[~2022-09-16] VITALS: Ht 185.4 cm; Wt 107.0 kg
[2022-09-16 02:07] LABS: CLARITY URINE CLEAR (CLEAR); COLOR URINE YELLOW (YELLOW); KETONES URINE NEGATIVE (NEGATIVE); LEUKOCYTE ESTERASE URINE NEGATIVE (NEGATIVE); NITRITE URINE NEGATIVE (NEGATIVE); OCCULT BLOOD URINE NEGATIVE (NEGATIVE); PROTEIN URINE TRACE (NEGATIVE); SPECIFIC GRAVITY URINE 1.029 (1.005-1.030)
[2022-09-16] MEDS ORDERED: HYDROCODONE/ACETAMINOPHEN 5/325MG TABLET PO STA (03:22)
[2022-09-16] MEDS ORDERED: KETOROLAC 30MG/ML VIAL IM STA (03:22)
[2022-09-16 04:11] VITALS: BP 152/89
[2022-09-16 05:04] LABS: BASOPHILS % 1.1 % (0.0-2.0); EOSINOPHILS % 1.7 % (0.0-5.0); HEMATOCRIT. 43.3 % (42.0-52.0); HEMOGLOBIN. 14.5 g/dL (14.0-18.0); LYMPHOCYTES % 40.4 % (20.0-50.0); MEAN CORPUSCULAR HEMOGLOBIN 29.2 pg (28.0-32.0); MEAN CORPUSCULAR VOLUME 87.4 fL (80.0-94.0); MEAN PLATELET VOLUME 9.9 fl (7.4-10.4); MONOCYTES % 8.2 % (2.0-8.0); NEUTROPHILS % 48.6 % (40.0-76.0); PLATELET 158 x1000/uL (130-400); RED BLOOD CELL COUNT 4.96 mill/uL (4.7-6.1)
[2022-09-16 05:13] LABS: CHLORIDE 112 mEq/L (98-107)
[2022-09-16] MEDS ORDERED: GABA-532 MT (06:14)
== END 2022-09-16 06:40 | disposition home or self-care (01) ==
LOC: ER 01:22
DX: R10.9 Unspecified abdominal pain (principal); E78.00 Pure hypercholesterolemia, unspecified; I11.0 Hypertensive heart disease with heart failure; I50.9 Heart failure, unspecified
CPT/HCPCS: 36415; 74176; 80053; 81003; 83690; 85025; 93005; 96372; 99285; J1885

== ENCOUNTER 2022-12-31 16:58 | Emergency (ER) | payer MEDICARE, MEDICAID ==
[~2022-12-31] VITALS: Ht 185.4 cm; Wt 100.0 kg
[~2022-12-31 16:58] MED LIST changes: -ATOR20TA65 PO; -CLON-457 PO; +CLOP75TA33 MT; +DOXA1TAB2 MT; +GABA-532 MT; -IBUP-2029 MT; +LIP40 PO; +METO-385 PO; -TIZA4CAP6 PO; -TOPI100T37 PO
[2022-12-31 17:19] VITALS: BP 130/74; PULSE 91; RESP 16; TEMP 98.6; O2SAT 100
[2022-12-31] MEDS ORDERED: KETOROLAC 60MG/2ML VIAL IM ONE (19:30)
[2022-12-31] MEDS ORDERED: KETOROLAC 60MG/2ML VIAL IM NR (19:30)
[2022-12-31 20:51] LABS: BASOPHILS % 0.7 % (0.0-2.0); DIFFERENTIAL COMMENT 0; EOSINOPHILS % 2.1 % (0.0-5.0); HEMATOCRIT. 43.2 % (42.0-52.0); HEMOGLOBIN. 14.3 g/dL (14.0-18.0); LYMPHOCYTES % 36.8 % (20.0-50.0); MEAN CORPUSCULAR HEMOGLOBIN 29.1 pg (28.0-32.0); MEAN CORPUSCULAR VOLUME 88.3 fL (80.0-94.0); MEAN PLATELET VOLUME 10.7 fl (7.4-10.4); MONOCYTES % 11.1 % (2.0-8.0); NEUTROPHILS % 49.3 % (40.0-76.0); PLATELET 159 x1000/uL (130-400); RED BLOOD CELL COUNT 4.89 mill/uL (4.7-6.1); RED CELL DISTRIBUTION WIDTH 14.8 % (11.6-14.6); WHITE BLOOD COUNT 6.2 x1000/uL (4.5-11.0)
[2022-12-31 20:59] LABS: CHLORIDE 112 mEq/L (98-107); INDEX HEMOLYSI 1 (1-3); INDEX ICTERIC 1 (1-4); INDEX LIPEMIC 1 (1-3); POTASSIUM 3.7 mEq/L (3.5-5.1); SODIUM 141 mEq/L (136-145)
[2022-12-31 21:06] LABS: ALANINE AMINOTRANSFERASE 45 IU/L (13-61); ASPARTATE AMINOTRANSFERASE 19 IU/L (15-37); BILIRUBIN TOTAL 1.3 mg/dL (0.1-1.0); CALCIUM 8.7 mg/dL (8.5-10.1); CARBON DIOXIDE 25 mEq/L (21-32); CREATININE 0.9 mg/dL (0.6-1.3); ETHANOL BLOOD < 10 mg/dL (-10); GLUCOSE 87 mg/dL (70-105); PROTEIN TOTAL 7.6 g/dL (6.0-8.3); UREA NITROGEN BLOOD 19 mg/dL (7-21)
[2022-12-31 21:08] LABS: NT PRO B-TYPE NATRIURETIC PEP 17 pg/mL (5-125); TROPONIN I HIGH SENSITIVITY 6 ng/L (<78)
[2022-12-31] MEDS ORDERED: ACET-2708 MT (21:22)
== END 2022-12-31 23:02 | disposition home or self-care (01) ==
LOC: ER 18:27
DX: I10 Essential (primary) hypertension (principal); I11.0 Hypertensive heart disease with heart failure; I50.9 Heart failure, unspecified; E78.00 Pure hypercholesterolemia, unspecified; Z79.899 Other long term (current) drug therapy
CPT/HCPCS: 80053; 80320; 83880; 85025; 84484; 36415; 93971; 71045; 72170; 93005; 99285; J1885; G0480

== ENCOUNTER 2023-01-24 22:42 | Emergency (ER) | payer MEDICARE, MEDICAID ==
[~2023-01-24] VITALS: Ht 188 cm; Wt 108.0 kg
[2023-01-24 23:16] VITALS: BP 161/95; PULSE 84; RESP 18; TEMP 99; O2SAT 98
== END 2023-01-25 01:59 | disposition left against medical advice (07) ==
LOC: ER 22:42
DX: Z53.21 Procedure and treatment not carried out due to patient leaving prior to being seen by health care provider (principal)
CPT/HCPCS: 99281

== ENCOUNTER 2023-06-09 14:03 | Emergency (ER) | payer MEDICARE, MEDICAID ==
[~2023-06-09] VITALS: Ht 180.3 cm; Wt 136.0 kg
[2023-06-09 14:12] VITALS: BP 147/76; PULSE 92; RESP 20; TEMP 98.5; O2SAT 95
[2023-06-09 14:41] LABS: BASOPHILS % 0.7 % (0.0-2.0); HEMATOCRIT. 44.9 % (42.0-52.0); HEMOGLOBIN. 14.7 g/dL (14.0-18.0); LYMPHOCYTES % 40.9 % (20.0-50.0); MEAN CORPUSCULAR HEMOGLOBIN 29.1 pg (28.0-32.0); MEAN CORPUSCULAR HGB CONC 32.7 g/dL (31.0-37.0); MEAN CORPUSCULAR VOLUME 88.9 fL (80.0-94.0); MEAN PLATELET VOLUME 10.6 fl (7.4-10.4); NEUTROPHILS % 50.4 % (40.0-76.0); PLATELET 160 x1000/uL (130-400); RED BLOOD CELL COUNT 5.06 mill/uL (4.7-6.1); WHITE BLOOD COUNT 5.5 x1000/uL (4.5-11.0)
[2023-06-09 14:56] LABS: ALANINE AMINOTRANSFERASE 37 IU/L (10-49); ALBUMIN 4.3 g/dL (3.2-4.8); ASPARTATE AMINOTRANSFERASE 18 IU/L (<34); BILIRUBIN TOTAL 0.9 mg/dL (0.1-1.0); CALCIUM 9.3 mg/dL (8.7-10.4); CARBON DIOXIDE 20 mEq/L (21-32); CHLORIDE 112 mEq/L (98-107); CREATININE 1.1 mg/dL (0.6-1.3); GLUCOSE 132 mg/dL (70-105); POTASSIUM 3.5 mEq/L (3.5-5.1); PROTEIN TOTAL 7.4 g/dL (6.0-8.3); SODIUM 144 mEq/L (136-145); TROPONIN I HIGH SENSITIVITY 4 ng/L (3.0-53); UREA NITROGEN BLOOD 17 mg/dL (9-23)
[2023-06-09 15:00] LABS: PROTHROMBIN TIME 10.4 sec (9.6-11.0)
[2023-06-09] MEDS ORDERED: METOCLOPRAMIDE HCL 10MG TABLET PO ONE (18:30)
[2023-06-09] MEDS ORDERED: ACETAMINOPHEN 325MG TABLET PO ONE (18:30)
[2023-06-09] MEDS ORDERED: KETOROLAC 60MG/2ML VIAL IM ONE (18:30)
== END 2023-06-09 23:30 | disposition left against medical advice (07) ==
LOC: ER 14:38
DX: R07.89 Other chest pain (principal); E11.9 Type 2 diabetes mellitus without complications; E78.00 Pure hypercholesterolemia, unspecified; I11.0 Hypertensive heart disease with heart failure; I50.9 Heart failure, unspecified; Z90.49 Acquired absence of other specified parts of digestive tract; Z98.890 Other specified postprocedural states
CPT/HCPCS: 36415; 71045; 80053; 84484; 85025; 93005; 99285

== ENCOUNTER 2023-10-25 14:38 | Emergency (ER) | payer MEDICARE, MEDICAID ==
[~2023-10-25] VITALS: Ht 185.4 cm; Wt 105.0 kg
[~2023-10-25 14:38] MED LIST changes: -HYDR-4135 PO; +HYDR50TA39 PO
[2023-10-25 14:44] VITALS: BP 137/74; PULSE 101; RESP 18; TEMP 97.9; O2SAT 95
[2023-10-25 16:01] LABS: BASOPHILS % 0.7 % (0.0-2.0); EOSINOPHILS % 1.4 % (0.0-5.0); HEMATOCRIT. 43.6 % (42.0-52.0); HEMOGLOBIN. 14.6 g/dL (14.0-18.0); LYMPHOCYTES % 37.4 % (20.0-50.0); MEAN CORPUSCULAR HEMOGLOBIN 29.5 pg (28.0-32.0); MEAN CORPUSCULAR HGB CONC 33.5 g/dL (31.0-37.0); MEAN CORPUSCULAR VOLUME 87.9 fL (80.0-94.0); MEAN PLATELET VOLUME 10.3 fl (7.4-10.4); MONOCYTES % 8.3 % (2.0-8.0); NEUTROPHILS % 52.2 % (40.0-76.0); PLATELET 157 x1000/uL (130-400); RED BLOOD CELL COUNT 4.96 mill/uL (4.7-6.1); RED CELL DISTRIBUTION WIDTH 15.2 % (11.6-14.6); WHITE BLOOD COUNT 5.3 x1000/uL (4.5-11.0)
[2023-10-25 16:09] LABS: CALCIUM 9.6 mg/dL (8.7-10.4); CARBON DIOXIDE 22 mEq/L (21-32); CHLORIDE 113 mEq/L (98-107); POTASSIUM 3.7 mEq/L (3.5-5.1); SODIUM 143 mEq/L (136-145)
[2023-10-25 16:11] LABS: INR 0.9; PARTIAL THROMBOPLASTIN TIME 24.7 sec (23.4-31.0); PROTHROMBIN TIME 10.4 sec (9.6-11.0)
[2023-10-25 16:14] LABS: TROPONIN I HIGH SENSITIVITY 5 ng/L (3.0-53)
[2023-10-25 16:15] LABS: GLUCOSE 123 mg/dL (70-105); UREA NITROGEN BLOOD 14 mg/dL (9-23)
[2023-10-25] MEDS ORDERED: ASPIRIN 325MG EC TABLET PO NR (19:45)
== END 2023-10-25 20:26 | disposition left against medical advice (07) ==
LOC: ER 14:38
DX: R07.9 Chest pain, unspecified (principal); E11.9 Type 2 diabetes mellitus without complications; E78.00 Pure hypercholesterolemia, unspecified; I11.0 Hypertensive heart disease with heart failure; I50.9 Heart failure, unspecified; G43.909 Migraine, unspecified, not intractable, without status migrainosus; Z90.49 Acquired absence of other specified parts of digestive tract; Z98.890 Other specified postprocedural states
CPT/HCPCS: 36415; 71045; 80048; 83880; 84484; 85025; 93005; 99285

== ENCOUNTER 2023-11-28 18:45 | Emergency (ER) | payer MEDICARE, MEDICAID ==
[~2023-11-28] VITALS: Ht 175.3 cm; Wt 100.0 kg
[2023-11-28 19:00] VITALS: BP 160/82; RESP 20; TEMP 98.2; O2SAT 96
[2023-11-28 19:01] VITALS: PULSE 97
[2023-11-28 21:59] LABS: CHLORIDE 111 mEq/L (98-107); POTASSIUM 3.6 mEq/L (3.5-5.1); SODIUM 143 mEq/L (136-145)
[2023-11-28 22:00] LABS: CALCIUM 9.8 mg/dL (8.7-10.4); CARBON DIOXIDE 24 mEq/L (21-32)
[2023-11-28 22:01] LABS: BASOPHILS % 0.8 % (0.0-2.0); DIFFERENTIAL COMMENT 0; EOSINOPHILS % 2.2 % (0.0-5.0); HEMATOCRIT. 45.3 % (42.0-52.0); HEMOGLOBIN. 14.6 g/dL (14.0-18.0); LYMPHOCYTES % 37.9 % (20.0-50.0); MEAN CORPUSCULAR HEMOGLOBIN 28.2 pg (28.0-32.0); MEAN CORPUSCULAR HGB CONC 32.2 g/dL (31.0-37.0); MEAN CORPUSCULAR VOLUME 87.8 fL (80.0-94.0); MEAN PLATELET VOLUME 10.2 fl (7.4-10.4); MONOCYTES % 10.8 % (2.0-8.0); NEUTROPHILS % 48.3 % (40.0-76.0); PLATELET 152 x1000/uL (130-400); RED BLOOD CELL COUNT 5.16 mill/uL (4.7-6.1); RED CELL DISTRIBUTION WIDTH 15.2 % (11.6-14.6); WHITE BLOOD COUNT 6.7 x1000/uL (4.5-11.0)
[2023-11-28 22:03] LABS: TROPONIN I HIGH SENSITIVITY 5 ng/L (3.0-53)
[2023-11-28 22:05] LABS: GLUCOSE 106 mg/dL (70-105); UREA NITROGEN BLOOD 14 mg/dL (9-23)
[2023-11-28 22:07] LABS: ALANINE AMINOTRANSFERASE 38 IU/L (10-49); ALBUMIN 4.4 g/dL (3.2-4.8); ASPARTATE AMINOTRANSFERASE 23 IU/L (<34); BILIRUBIN TOTAL 1.2 mg/dL (0.1-1.0); PROTEIN TOTAL 7.1 g/dL (6.0-8.3)
== END 2023-11-29 00:58 | disposition left against medical advice (07) ==
LOC: ER 18:45
DX: R07.89 Other chest pain (principal); Z53.21 Procedure and treatment not carried out due to patient leaving prior to being seen by health care provider
CPT/HCPCS: 36415; 71045; 80053; 84484; 85025; 93005